=== PATIENT | female | born 1945 | race Caucasian/White ===

== ENCOUNTER → 2020-04-18 14:55 | Outpatient (ROUT) | payer MEDICARE, OTHER, SELFPAY ==
[2020-04-18 15:33] LABS: Hemoglobin 11.7 g/dL (12.0-16.0); Mean Corpuscular HGB Conc 31.7 % (30-36); Mean Corpuscular Hemoglobin 33.6 PG (26-34); Platelet Count 213 X10^3/uL (150-400); Red Cell Distribution Width 13.6 % (11.6-14.8); White Blood Cell Count 9.9 X10^3/uL (4.5-11.0)
[2020-04-18 16:05] LABS: Alanine Aminotransferase 26 IU/L (<35); Albumin 4.2 g/dL (3.5-5.0); Albumin Globulin Ratio 1.8 (1.0-2.8); Alkaline Phosphatase 69 U/L (38-126); Aspartate Aminotransferase 31 IU/L (14-36); BUN Creatinine Ratio 24.3 (6-22); Bilirubin Total 0.4 mg/dL (0.2-1.3); Blood Urea Nitrogen 26 mg/dL (7-17); Calcium 9.4 mg/dL (8.4-10.2); Carbon Dioxide 26 mmol/L (22-32); Chloride 111 mmol/L (98-107); Cholesterol 175 mg/dL (140-199); Globulin 2.4 g/dL (1.7-4.1); Glucose 81 mg/dL (80-110); HDL Cholesterol 81 mg/dL (40-60); HEMOLYSIS < 15 (0-50); LDL Cholesterol Calculated 79 mg/dL (<100); Potassium 4.4 mmol/L (3.4-5.1); Sodium 142 mmol/L (137-145); Total Protein 6.6 g/dL (6.3-8.2); Triglycerides 74 mg/dL (35-150)
[2020-04-18 17:42] LABS: Hemoglobin A1C% w Est Avg Glu 5.5 % (4.0-6.0)
[2020-04-20 14:40] LABS: Iron 106 ug/dL (37-170)
[2020-04-20 15:16] LABS: Ferritin 48 ng/mL (11-264)
[2020-04-20 15:46] LABS: Folate 8.1 ng/mL (2.76-20.0)
== END ==
PROVIDERS: Visit Provider Student in an Organized Health Care Education/Training Program
DX: E11.9 Type 2 diabetes mellitus without complications (principal); N18.30 Chronic kidney disease, stage 3 unspecified; I10 Essential (primary) hypertension
CPT/HCPCS: 80053; 80061; 82728; 82746; 83036; 83540; 85027

== ENCOUNTER → 2022-05-24 15:30 | Outpatient (CLI) | payer MEDICARE, OTHER, SELFPAY ==
[2022-05-24 23:51] LABS: Influenza A - CEPHEID Flu A NEGATIVE (NEGATIVE); Influenza B - CEPHEID Flu B NEGATIVE (NEGATIVE); Respiratory Syncytial Virus Negative (Negative)
[2022-05-24 23:59] LABS: COVID-19 CEPHEID 4-PLEX PCR Negative (Negative)
== END ==
PROVIDERS: Visit Provider Nurse Practitioner Family
DX: R05.1 Acute cough (principal); R06.02 Shortness of breath
CPT/HCPCS: 0241U

== ENCOUNTER → 2023-04-17 11:12 | Outpatient (CLI) | payer MEDICARE, OTHER, SELFPAY ==
--- NOTE | 2023-04-17 | DI.US.S_ITS ---
PROCEDURE: US CAROTID DOPPLER BI INDICATIONS: Bilateral carotid artery stenosis TECHNIQUE: Color and pulse Doppler interrogation was performed of both carotid systems, with image documentation and velocity measurements. COMPARISON: None. FINDINGS: Stenosis calculations are based on SRU (Society of Radiologists in Ultrasound) criteria. Right side: Brachial blood pressure: 163/71 mm Hg. Common carotid artery peak systolic velocity: 65.2 cm/sec. Internal carotid artery peak systolic velocity: 128.7 cm/sec. Internal carotid artery end diastolic velocity: 30.3 cm/sec. External carotid artery peak systolic velocity: 66.6 cm/sec. ICA/CCA peak systolic ratio: 2.0 . Laws scale imaging description: Atheromatous plaque is present at the carotid bulb. Percent internal carotid artery stenosis: 50-69% stenosis. Vertebral artery: Flow direction is antegrade. Left side: Brachial blood pressure: 150/86 mm Hg. Common carotid artery peak systolic velocity: 65.2 cm/sec. Internal carotid artery peak systolic velocity: 202.6 cm/sec. Internal carotid artery end diastolic velocity: 43.2 cm/sec. External carotid artery peak systolic velocity: 78.7 cm/sec. ICA/CCA peak systolic ratio: 3.1. Laws scale imaging description: Atheromatous plaquing calcification is present at the carotid bulb. Percent internal carotid artery stenosis: 50-69% stenosis. Vertebral artery: Flow direction is antegrade. IMPRESSION: 50-69% stenosis of the bilateral internal carotid arteries. Dictated by: Leslye Ramos M.D. on 04/17/2023 at 14:28 Approved by: Leslye Ramos M.D. on 04/17/2023 at 14:29
== END ==
PROVIDERS: Referring Provider Student in an Organized Health Care Education/Training Program; Visit Provider Student in an Organized Health Care Education/Training Program
DX: I65.23 Occlusion and stenosis of bilateral carotid arteries (principal)
CPT/HCPCS: 93880

== ENCOUNTER 2023-09-12 12:41 | Day surgery (SDC) | payer MEDICARE, OTHER, SELFPAY ==
[2023-09-12 13:13] VITALS: BP 158/66; PULSE 70; RESP 16; TEMP 37.1; O2SAT 94
[2023-09-12] MEDS: LACTATED RINGERS 1,000 ML 42 ML IV (13:15)
--- NOTE | 2023-09-12 13:48 | PM.PREOP ---
Pre-operative Note Interval Note History & Physical reviewed/Exam performed by Physician: Yes Changes to H&P: No
[2023-09-12 14:16] VITALS: BP 139/66; PULSE 70; RESP 19; TEMP 36.4; O2SAT 95
[2023-09-12 14:22] VITALS: BP 192/92; PULSE 82; RESP 22; O2SAT 95
--- NOTE | 2023-09-12 14:25 | PM.OP.COLON ---
Operative Date/Time/Diagnoses Date of procedure: 09/12/23 Time of procedure: 14:26 Pre-op diagnosis: Rectal pain Post-op diagnosis: other (Internal hemorrhoids) Procedure & Clinicians Study performed: Sigmoidoscopy Banding internal hemorrhoids x3 Indications: Rectal pain Surgeon: Slick Mann Procedure Notes Procedure in detail: The history and physical was performed/updated and the patient is ASA class is 2. The procedure was discussed in detail with the patient. Potential risks complications including infection, bleeding, missed diagnosis, perforation, need for surgery, and were explained. Their questions were answered and informed consent was obtained. Patient was brought to the procedure room and placed standard monitoring equipment. The patient's vital signs were monitored continuously throughout the entire procedure. Prior to starting time-out was performed. The patient was placed in the left lateral recumbent position. Procedural sedation was administered by anesthesia. Examination began with a thorough inspection of the perianal area there was no evidence of fissures, fistulae, external hemorrhoids or cutaneous malignancy. The colonoscopy scope was then placed into the anal canal and was advanced to the level of the sigmoid colon. The descending colon was tortuous and no further safe progress could be made. The scope was then slowly withdrawn. Retroflexion within the rectum demonstrated grade 3 internal hemorrhoids. Following completion of the sigmoidoscopy we proceeded with hemorrhoidal banding. The anoscope was placed. Prominent internal hemorrhoids with prolapse in the left lateral right posterior and anterior positions. Each pedicle was grasped with the suction the doubly ligated at their base. Tolerated the procedure well. Specimen(s): none sent Impression: Prolapsing internal hemorrhoids Post-procedure Plan for aftercare: Sitz bath twice daily Avoid straining/constipation Follow up: weeks (2) Disposition: same day surgery
[2023-09-12 14:26] VITALS: BP 157/62; PULSE 72; RESP 22; TEMP 36.3; O2SAT 95
[2023-09-12 14:32] VITALS: BP 166/57; PULSE 67; RESP 22; TEMP 36.3; O2SAT 95
== END 2023-09-12 14:55 | disposition home or self-care (01) ==
PROVIDERS: PCP Student in an Organized Health Care Education/Training Program; Referring Provider Surgery; Visit Provider Surgery
PROC: 0DJD8ZZ Inspection of Lower Intestinal Tract, Via Natural or Artificial Opening Endoscopic (ICD-10-PCS; CPT 45378; principal; 2023-09-12 13:30)
DX: K62.89 Other specified diseases of anus and rectum (principal); K64.2 Third degree hemorrhoids
CPT/HCPCS: 46221; 45330; J2704

== ENCOUNTER 2023-10-05 13:17 | Emergency (ER) | payer MEDICARE, OTHER, SELFPAY ==
[2023-10-05] VITALS (11 sets, daily range): BP systolic 143–189; BP diastolic 71–119; PULSE 53–64; RESP 18; TEMP 36.6; O2SAT 94–100; BMI 34.3
--- NOTE | 2023-10-05 13:33 | DI.CT.S_ITS ---
PROCEDURE: CT HEAD/BRAIN WO CON INDICATIONS: fall TECHNIQUE: Noncontrast 4.5 mm thick angled axial sections acquired from the foramen magnum to the vertex, with coronal and sagittal reformats. For radiation dose reduction, the following was used: automated exposure control, adjustment of mA and/or kV according to patient size. COMPARISON: None. FINDINGS: Image quality: Diagnostic. CSF spaces: Basal cisterns are patent. No extra-axial fluid collections. Ventricles are normal in size and shape. Brain: No midline shift. No intracranial masses or hemorrhage. Laws-white matter interface is normal. Skull and face: Calvarium and visualized facial bones are intact, without suspicious lesions. Soft tissue emphysema over the right forehead above the orbit. Sinuses: Visualized sinuses and mastoids are clear. IMPRESSION: No acute intracranial pathology. Dictated by: Manjinder Jackson M.D. on 10/05/2023 at 12:57 Approved by: Manjinder Jackson M.D. on 10/05/2023 at 12:59
--- NOTE | 2023-10-05 13:34 | DI.CT.S_ITS ---
PROCEDURE: CT CERVICAL SPINE WO CON INDICATIONS: fall TECHNIQUE: Noncontrast 3 mm thick sections acquired from the skull base to the T4 level. Sagittal and coronal reformats were then constructed. For radiation dose reduction, the following was used: automated exposure control, adjustment of mA and/or kV according to patient size. COMPARISON: [facility], CT, CT HEAD/BRAIN WO CON, 10/05/2023, 13:39. FINDINGS: Image quality: Excellent. Bones: No fractures or dislocations. Visualized superior ribs are intact. Soft tissues: Prevertebral soft tissues are normal in thickness. No paravertebral hematomas. No apical pneumothoraces. Reversal normal cervical lordosis centered at C5. Nonspecific right supraclavicular 1 centimeter lymph node. IMPRESSION: No displaced fracture or traumatic subluxation. Nonspecific right supraclavicular lymphadenopathy. Dictated by: Manjinder Jackson M.D. on 10/05/2023 at 12:50 Approved by: Manjinder Jackson M.D. on 10/05/2023 at 12:56
--- NOTE | 2023-10-05 14:08 | ED_ITS ---
HPI - Fall General Chief Complaint: Fall Stated Complaint: GLF, head lac Time Seen by Provider: 10/05/23 14:08 Source: patient, EMS, RN notes reviewed and old records reviewed Mode of arrival: EMS Limitations: no limitations History of Present Illness HPI Narrative: 78-year-old female with history of dyslipidemia, hypertension, osteoarthritis, does not take any anticoagulants presents with complaint of fall and head laceration. Patient states she was walking down her back steps. She states she was not picking up her feet quite as well as she probably should have caught her foot and fell forward hitting her head as well as her hands. She states she is little bit of pain where she has a laceration. She denies headache otherwise. Denies any neck or back pain. Denies any loss of consciousness. Denies any chest pain or shortness of breath. No abdominal back or flank pain. Denies any major injuries to her arms or legs. Denies any new numbness tingling or weakness no other GI symptoms with no nausea or vomiting or dizziness. Patient states she takes meloxicam daily she denies any anticoagulants. Former smoker, occasional alcohol, no recreational drug use. Primary care is Khalida Ramesh. Patient states she has been able to get up and move between [facility] without any issue. Related Data Home Medications Medication Instructions Recorded Confirmed meloxicam 7.5 mg tablet 7.5 mg PO DAILY 05/24/22 09/12/23 omeprazole 20 mg capsule,delayed 20 mg PO DAILY 05/24/22 09/12/23 release valacyclovir 500 mg tablet 500 mg PO DAILY 05/24/22 09/12/23 acetaminophen 650 100 ml PO .q8hr Pain 06/19/23 09/12/23 albuterol sulfate 90 mcg/actuation 2 puff inhalation Q6H PRN airway 06/19/23 09/12/23 aerosol inhaler escitalopram oxalate 20 mg tablet 20 mg PO DAILY 06/19/23 09/12/23 hyoscyamine sulfate 0.125 mg tablet 0.25 mg PO QID 06/19/23 09/12/23 ipratropium 20 mcg-albuterol 100 1 puff inhalation 6XD 06/19/23 09/12/23 mcg/actuation mist for inhalation (Combivent Respimat) lidocaine 5 % topical patch 1 patch topical DAILY 06/19/23 09/12/23 lisinopril 40 mg tablet 40 mg PO DAILY 06/19/23 09/12/23 nystatin 100,000 unit/gram topical 1 applic topical DAILY 06/19/23 09/12/23 cream nystatin 100,000 unit/gram topical 1 applic topical BID 06/19/23 09/12/23 powder simvastatin 5 mg tablet 5 mg PO DAILY 06/19/23 09/12/23 Previous Rx's Medication Instructions Recorded acetaminophen 325 mg capsule 650 mg (2 x 325 mg) PO QID PRN 09/12/23 (Tylenol) pain #60 caps polyethylene glycol 3350 17 17 g PO DAILY #119 grams 09/12/23 gram/dose oral powder (Miralax) Allergies Allergy/AdvReac Type Severity Reaction Status Date / Time gabapentin Allergy Verified 10/05/23 13:22 Sulfa (Sulfonamide Allergy Verified 10/05/23 13:22 Antibiotics) Review of Systems Review of Systems ROS Unobtainable: All systems reviewed & are unremarkable except as noted in HPI and below Patient History Medical History Carotid artery disease Non Hodgkin's lymphoma Asthma Diabetes Surgical History History of back surgery H/O tubal ligation History of carpal tunnel surgery History of knee replacement Family History Mother Stroke Father Colon cancer Social History marital status: details: ALSO LIVES WITH GRANDDAUGHTER AND SON-IN-LAW household members: spouse and family lives independently: Yes occupational status: previously employed Smoking Status: Former smoker alcohol intake: current substance use type: does not use Smoking Status: Former smoker alcohol intake frequency: holidays/special occasions only Substance Use Type: does not use Exam Narrative Exam Narrative: GEN: Patient appears in mild distress. HEAD: Patient has laceration over her right forehead, stellate , no raccoon/Torres sign. NECK: Nontender, painless range of motion, trachea midline Negative Nexus criteria, there is no midline tenderness, distracting injury, altered mental status, neuro deficit, recent EtOH. EYES: PERRLA, EOMI ENT: External inspection normal, trachea is midline, Nares are clear, no septal hematoma, no dental or oral injury, airway is normal and with normal occlusion, No bony tenderness RESP: Chest is nontender and has symmetric movement, no ecchymosis, breath sounds are normal no crackles, wheezes or rales CVS: Heart sounds are normal, no murmur noted, No JVD. ABG/GI: Nontender, soft, normal bowel sounds, no distention, no organomegaly, pelvic rock is negative NEURO: Oriented AOx3, neuro is grossly intact, sensation and motor is normal all 4 extremities moving, cranial nerves II through XII are intact, GCS is 15 PSYCH: Normal mood and affect SKIN: Patient has some small abrasions on hands, warm and dry, no crepitus and without decubitus BACK: No CVA tenderness, no vertebral tenderness, no step-off's, no crepitus EXT: Atraumatic, hips are nontender, no pedal edema, normal color and temperature, normal range of motion of extremities with normal tendon exam, 2+ pulses in all four extremities Initial Vital Signs Initial Vital Signs: Vital Signs Pulse Rate 64 10/05/23 13:20 Pulse Oximetry 97 10/05/23 13:20 Procedures Laceration Repair Laceration 1: Site: face (forehead) Side (If applicable): right Size (cm): 4.2 Description: stellate and irregular Depth: simple, single layer Local Anesthetic: lidocaine 2% Amount of anesthesia used (mL): 6 Pre-repair: wound explored, irrigated extensively, deep structures intact and wound margins revised Skin layer closed with: vicryl Skin layer suture size: 5-0 Number of sutures: 12 Technique: simple, interrupted Scores [place] CT Head Rule Age <16 years old: No Patient on blood thinners: No Seizure after injury: No Exclusion: Patient NOT Excluded, Proceed to next steps Age greater or equal to 65 years: Yes GCS Dennis coma scale eye opening: Spontaneous Huxford coma scale verbal response: Orientated Huxford coma scale motor response: Obey commands Dennis coma scale total score: 15 Nexus Score for C-Spine Focal Neurologic deficit present: No Midline spinal tenderness present: No Altered level of conciousness present: No Intoxication present: No Distracting Injury Present: No Nexus Criteria for C-spine: 0 Course Orders Ordered: ED Orders 10/05/23 13:33 CT head/brain wo con Stat 10/05/23 13:34 CT cervical spine wo con Stat Vital Signs Vital signs: Vital Signs - 8 hr 10/05/23 13:20 10/05/23 13:21 10/05/23 13:21 Temperature Pulse Rate 64 60 Respiratory Rate Blood Pressure 158/71 H Pulse Oximetry 97 99 Oxygen Delivery Method 10/05/23 13:22 10/05/23 13:30 10/05/23 13:31 Temperature 97.8 F Pulse Rate 56 L 57 L 57 L Respiratory Rate 18 Blood Pressure 158/71 H Pulse Oximetry 99 98 94 Oxygen Delivery Method Room Air Room Air 10/05/23 13:31 10/05/23 13:47 10/05/23 13:47 Temperature Pulse Rate 56 L Respiratory Rate Blood Pressure 143/119 H 189/76 H Pulse Oximetry 100 Oxygen Delivery Method 10/05/23 14:00 10/05/23 14:00 10/05/23 14:30 Temperature Pulse Rate 58 L Respiratory Rate Blood Pressure 178/77 H 181/77 H Pulse Oximetry 97 Oxygen Delivery Method 10/05/23 14:30 10/05/23 15:00 10/05/23 15:01 Temperature Pulse Rate 56 L 54 L Respiratory Rate Blood Pressure 174/71 H Pulse Oximetry 100 97 Oxygen Delivery Method Room Air 10/05/23 15:01 10/05/23 15:26 10/05/23 15:26 Temperature Pulse Rate 53 L 57 L Respiratory Rate Blood Pressure 163/95 H Pulse Oximetry 98 98 Oxygen Delivery Method Room Air MDM - Fall Imaging Data CT scan - head: Radiologist's Impression: [place] [address] CT Scan Report Signed Patient: Gilma Silva MR#: [id number] : 1945 Acct:[id number] Age/Sex: 78 / F Date of Service: 10/05/23 Loc: ED Accession Number: [id number] Procedure: CT head/brain wo con Ordering Provider: Snow Chan D.O. PROCEDURE: CT HEAD/BRAIN WO CON INDICATIONS: fall TECHNIQUE: Noncontrast 4.5 mm thick angled axial sections acquired from the foramen magnum to the vertex, with coronal and sagittal reformats. For radiation dose reduction, the following was used: automated exposure control, adjustment of mA and/or kV according to patient size. COMPARISON: None. FINDINGS: Image quality: Diagnostic. CSF spaces: Basal cisterns are patent. No extra-axial fluid collections. Ve ntricles are normal in size and shape. Brain: No midline shift. No intracranial masses or hemorrhage. Laws-white matter interface is normal. Skull and face: Calvarium and visualized facial bones are intact, without suspicious lesions. Soft tissue emphysema over the right forehead above the orbit. Sinuses: Visualized sinuses and mastoids are clear. IMPRESSION: No acute intracranial pathology. Dictated by: Manjinder Jackson M.D. on 10/05/2023 at 12:57 Approved by: Manjinder Jackson M.D. on 10/05/2023 at 12:59 ?? CT - cervical spine: Radiologist's Impression: [place] [address] CT Scan Report Signed Patient: Gilma Silva MR#: [id number] : 1945 Acct:[id number] Age/Sex: 78 / F Date of Service: 10/05/23 Loc: ED Accession Number: [id number] Procedure: CT cervical spine wo con Ordering Provider: Snow Chan D.O. PROCEDURE: CT CERVICAL SPINE WO CON INDICATIONS: fall TECHNIQUE: Noncontrast 3 mm thick sections acquired from the skull base to the T4 level. Sagittal and coronal reformats were then constructed. For radiation dose reduction, the following was used: automated exposure control, adjustment of mA and/or kV according to patient size. COMPARISON: [facility], CT, CT HEAD/BRAIN WO CON, 10/05/2023, 13:39. FINDINGS: Image quality: Excellent. Bones: No fractures or dislocations. Visualized superior ribs are intact. Soft tissues: Prevertebral soft tissues are normal in thickness. No paravertebral hematomas. No apical pneumothoraces. Reversal normal cervical lordosis centered at C5. Nonspecific right supraclavicular 1 centimeter lymph node. IMPRESSION: No displaced fracture or traumatic subluxation. Nonspecific right supraclavicular lymphadenopathy. Dictated by: Manjinder Jackson M.D. on 10/05/2023 at 12:50 Approved by: Manjinder Jackson M.D. on 10/05/2023 at 12:56 MDM Narrative Medical decision making narrative: 78-year-old female with no anticoagulants who had a down stairs head laceration. Patient is not anticoagulated [address] was obtained based on age C-spine was included as well. Head CT and CT C-spine show no acute fracture or bleed, does note some nonspecific right supraclavicular lymphadenopathy. Patient notes she has a history of lymphoma has been told by her oncologist she does not require at follow up discussed would probably be worthwhile talk with her physician as it has been several years. Patient had no loss of consciousness. Had large stellate laceration which was repaired. Patient does not have any additional symptoms. Notes her tetanus is up-to-date. Discharge Plan Departure Patient Disposition: Home Clinical Impression: Lymphadenopathy, supraclavicular Forehead laceration Qualifiers: Encounter type: initial encounter Qualified Code(s): S01.81XA - Laceration without foreign body of other part of head, initial encounter Fall Qualifiers: Encounter type: initial encounter Qualified Code(s): W19.XXXA - Unspecified fall, initial encounter Head injury Qualifiers: Encounter type: initial encounter Qualified Code(s): S09.90XA - Unspecified injury of head, initial encounter Instructions: Closed Head Injury Activity Restrictions/Additional Instructions: Your imaging does show a right supraclavicular 1 cm lymph node, this is nonspecific but should be followed up with your physician. Your sutures should dissolve over the next week, if still present at 7 days follow up to have them removed. Wound Care: Keep wound(s) clean and dry. Wash daily with soap and water only. Do not use over the counter products (alcohol or peroxide)on the wounds unless instructed by a physician. If wound condition worsens (increased/expanding redness, developing fluid blisters, or worsening pain), either contact your doctor for an urgent re- assessment , or return to the Emergency Department. Return if fever greater than 100.4 Fahrenheit, increased swelling, increasing pain or worsening symptoms such as increased discharge or spreading redness. Severe headaches, sudden vision changes, persistent nausea or vomiting, new neck or back pain, lightheadedness or passing out, new weakness numbness or difficulty with ambulation or other new or concerning changes. Prescriptions: No Action omeprazole 20 mg capsule,delayed release(DR/EC) 20 mg PO DAILY meloxicam 7.5 mg tablet 7.5 mg PO DAILY valacyclovir 500 mg tablet 500 mg PO DAILY escitalopram oxalate 20 mg tablet 20 mg PO DAILY lisinopril 40 mg tablet 40 mg PO DAILY lidocaine 5 % adhesive patch,medicated 1 patch topical DAILY Rx Instructions: leave on most painful area for up to 12 hrs Combivent Respimat 20-100 mcg/actuation mist 1 puff inhalation 6XD Rx Instructions: space evenly during waking hours albuterol sulfate 90 mcg/actuation HFA aerosol inhaler 2 puff inhalation Q6H PRN (Reason: airway) acetaminophen 650 100 ml PO .q8hr hyoscyamine sulfate 0.125 mg tablet 0.25 mg PO QID simvastatin 5 mg tablet 5 mg PO DAILY nystatin 100,000 unit/gram cream 1 applic topical DAILY nystatin 100,000 unit/gram powder 1 applic topical BID polyethylene glycol 3350 [Miralax] 17 gram/dose powder 17 g PO DAILY Qty: 119 0RF acetaminophen [Tylenol] 325 mg capsule 650 mg PO QID PRN (Reason: pain) Qty: 60 0RF Referrals: Khalida Ramesh PA-C [Primary Care Provider] - Stand Alone Forms: Patient Portal/API
== END 2023-10-05 15:38 | disposition home or self-care (01) ==
PROVIDERS: Emergency Provider Emergency Medicine; PCP Student in an Organized Health Care Education/Training Program
DX: S01.81XA Laceration without foreign body of other part of head, initial encounter (principal); S09.90XA Unspecified injury of head, initial encounter; R59.0 Localized enlarged lymph nodes; W18.30XA Fall on same level, unspecified, initial encounter; Z79.899 Other long term (current) drug therapy
CPT/HCPCS: 12013; 70450; 72125; 99281; 99284

== ENCOUNTER 2023-12-07 10:16 | Inpatient (IN) | payer MEDICARE, OTHER, SELFPAY ==
[2023-12-07] VITALS (47 sets, daily range): BP systolic 108–156; BP diastolic 41–86; PULSE 61–76; RESP 16–31; TEMP 36.2–36.6; O2SAT 92–98; BMI 33.5
--- NOTE | 2023-12-07 10:23 | ED.NEUROSD ---
HPI - Neuro Symptoms/Deficit General Chief Complaint: Neuro Symptoms/Deficit Stated Complaint: CODE STROKE Time Seen by Provider: 12/07/23 10:23 History of Present Illness HPI Narrative: Patient is a 78-year-old female history of dyslipidemia hypertension osteoarthritis not on anticoagulation presenting today as a code stroke. Last known well 10:00 p.m. last night. Daughter at bedside states she had to put her to bed which is abnormal. She was with her most of the day she has had some chills but no other symptoms really but she did need help getting to bed she did not notice any obvious deficits. This morning got her was there tried to wake her and had some difficulty waking or let her sleep for a bit longer than woke her again around 8:00 a.m. and noticed that she had some. EMS reports that she had right sided weakness. Mostly in arm but thought that maybe she was dragging her leg as well. No obvious speech abnormality or facial droop. Not on antiplatelet medication Related Data Home Medications Medication Instructions Recorded Confirmed meloxicam 7.5 mg tablet 7.5 mg PO DAILY 05/24/22 09/12/23 omeprazole 20 mg capsule,delayed 20 mg PO DAILY 05/24/22 09/12/23 release valacyclovir 500 mg tablet 500 mg PO DAILY 05/24/22 09/12/23 acetaminophen 650 100 ml PO .q8hr Pain 06/19/23 09/12/23 albuterol sulfate 90 mcg/actuation 2 puff inhalation Q6H PRN airway 06/19/23 09/12/23 aerosol inhaler escitalopram oxalate 20 mg tablet 20 mg PO DAILY 06/19/23 09/12/23 hyoscyamine sulfate 0.125 mg tablet 0.25 mg PO QID 06/19/23 09/12/23 ipratropium 20 mcg-albuterol 100 1 puff inhalation 6XD 06/19/23 09/12/23 mcg/actuation mist for inhalation (Combivent Respimat) lidocaine 5 % topical patch 1 patch topical DAILY 06/19/23 09/12/23 lisinopril 40 mg tablet 40 mg PO DAILY 06/19/23 09/12/23 nystatin 100,000 unit/gram topical 1 applic topical DAILY 06/19/23 09/12/23 cream nystatin 100,000 unit/gram topical 1 applic topical BID 06/19/23 09/12/23 powder simvastatin 5 mg tablet 5 mg PO DAILY 06/19/23 09/12/23 Previous Rx's Medication Instructions Recorded acetaminophen 325 mg capsule 650 mg (2 x 325 mg) PO QID PRN 09/12/23 (Tylenol) pain #60 caps polyethylene glycol 3350 17 17 g PO DAILY #119 grams 09/12/23 gram/dose oral powder (Miralax) Allergies Allergy/AdvReac Type Severity Reaction Status Date / Time gabapentin Allergy Verified 10/05/23 13:22 Sulfa (Sulfonamide Allergy Verified 10/05/23 13:22 Antibiotics) Patient History Medical History Carotid artery disease Non Hodgkin's lymphoma Asthma Diabetes Surgical History History of back surgery H/O tubal ligation History of carpal tunnel surgery History of knee replacement Family History Mother Stroke Father Colon cancer Social History marital status: details: ALSO LIVES WITH GRANDDAUGHTER AND SON-IN-LAW household members: spouse and family lives independently: Yes occupational status: previously employed Smoking Status: Former smoker alcohol intake: current substance use type: does not use Smoking Status: Former smoker alcohol intake frequency: holidays/special occasions only Substance Use Type: does not use Exam Initial Vital Signs Initial Vital Signs: Vital Signs Temperature 98 F 12/07/23 10:25 Pulse Rate 73 12/07/23 10:25 Respiratory Rate 22 12/07/23 10:25 Blood Pressure 112/53 L 12/07/23 10:25 Pulse Oximetry 94 12/07/23 10:25 Oxygen Delivery Method Room Air 12/07/23 10:25 GENERAL: Alert pleasant 78-year-old and in no acute distress. HEENT: Head atraumatic,EOMI, pupils reactive, mild left facial droop CARDIOVASCULAR: Regular rate and rhythm without murmurs, rubs or gallops. RESPIRATORY: Breath sounds equal bilaterally, no wheezes rales or rhonchi. ABDOMEN: Soft, nontender. Normoactive bowel sounds all 4 quadrants. No guarding or rebound. EXTREMITIES: Normal range of motion, no clubbing or edema. Neurovascularly intact NEUROLOGICAL: Alert and oriented x4.Normal gait and speech. Cranial nerves II through XII grossly intact. 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 Scores NIH Stroke Scale Level of Conciousness: Alert, keenly responsive Ask month/age: Answers both questions correctly. Open/close eyes, close hand: Performs both tasks correctly Best gaze horizontal: Normal Visual [place]: No visual loss Facial palsy: Minor paralysis, flattened nasolabial fold, asymmetry on smiling Left arm drift: No drift for full 10 sec Right arm drift: No drift for full 10 sec Left leg drift: No drift for full 5 sec Right leg drift: No drift for full 5 sec Limb ataxia: Present in one limb Sensory on face/arms/legs: Normal, no sensory loss Best language: No aphasia, normal Dysarthria: Normal Extinction or inattention: No abnormality Total NIH Stroke scale score: 2 Course Orders Ordered: ED Orders 12/07/23 10:27 CT Stroke Stat 12/07/23 10:28 CT angio head and neck Stat 12/07/23 10:38 CMP [Comprehensive Metabolic Panel] Stat Complete Blood Count AUTO DIFF Stat Ethanol (ETOH) Stat Lactate (Lactic Acid) Stat PTT Partial Thromboplastin Alli Stat Pathologist Review (for CBC) Stat Procalcitonin Stat Prothrombin Time INR Stat Troponin & CK Cardiac Panel Stat 12/07/23 10:44 EKG-12 Lead Stat 12/07/23 11:19 Respiratory Panel (Film Array) Stat 12/07/23 11:31 Urinalysis and Microscopic Stat Urine Culture Stat Urine Drug Screen, Rapid Stat 12/07/23 11:45 Blood Culture Stat 12/07/23 12:30 Trop I [Troponin I] Stat 12/07/23 13:42 Consult to CARD HAND - Nuclear Medicine Officer Stat 12/07/23 13:54 CT chest abd pel wo con Stat 12/07/23 14:41 BMP [Basic Metabolic Panel] Stat 12/07/23 15:09 MR head/brain wo con Stat Sodium Chloride (Normal Saline 0.9%) 1,000 mls @ 125 mls/hr IV CONT ERIC Last Admin: 12/07/23 11:57 Dose: 125 mls/hr Documented By: EVITA Discontinued Medications Acetaminophen (Acetaminophen 325 Mg Tablet) 975 mg PO NOW ONE Stop: 12/07/23 13:36 Last Admin: 12/07/23 14:28 Dose: 975 mg Documented By: EVITA Aspirin (Aspirin Ec 325 Mg Tablet) 325 mg PO NOW ONE Stop: 12/07/23 11:17 Last Admin: 12/07/23 11:55 Dose: 325 mg Documented By: EVITA Piperacillin Sod/Tazobactam (Sod 4.5 gm/ Sodium Chloride) 100 mls @ 200 mls/hr IV NOW ONE Stop: 12/07/23 11:17 Last Infusion: 12/07/23 12:35 Dose: Infused Documented By: Admin: 12/07/23 11:55 Dose: 200 mls/hr Documented By: EVITA Vital Signs Vital signs: Vital Signs - 8 hr 12/07/23 10:45 12/07/23 10:45 12/07/23 10:50 Pulse Rate 70 69 Respiratory Rate 25 H 25 H Blood Pressure 126/58 L Pulse Oximetry 95 96 Oxygen Delivery Method 12/07/23 11:00 12/07/23 11:00 12/07/23 11:10 Pulse Rate 67 67 Respiratory Rate 23 23 Blood Pressure 127/58 L Pulse Oximetry 96 95 Oxygen Delivery Method 12/07/23 11:16 12/07/23 11:16 12/07/23 11:20 Pulse Rate 66 66 Respiratory Rate 24 25 H Blood Pressure 127/60 Pulse Oximetry 96 95 Oxygen Delivery Method 12/07/23 11:29 12/07/23 11:30 12/07/23 11:30 Pulse Rate 66 70 Respiratory Rate 27 H Blood Pressure 121/57 L Pulse Oximetry 96 96 Oxygen Delivery Method Room Air 12/07/23 12:00 12/07/23 12:00 12/07/23 12:30 Pulse Rate 64 67 Respiratory Rate 24 25 H Blood Pressure 117/60 Pulse Oximetry 97 97 Oxygen Delivery Method 12/07/23 12:42 12/07/23 12:42 12/07/23 12:50 Pulse Rate 63 64 Respiratory Rate 26 H 27 H Blood Pressure 137/63 Pulse Oximetry 98 95 Oxygen Delivery Method Room Air 12/07/23 13:00 12/07/23 13:01 12/07/23 13:01 Pulse Rate 64 64 Respiratory Rate 26 H 26 H Blood Pressure 126/60 Pulse Oximetry 96 96 Oxygen Delivery Method 12/07/23 13:10 12/07/23 13:20 12/07/23 13:30 Pulse Rate 62 62 63 Respiratory Rate 24 24 31 H Blood Pressure Pulse Oximetry 96 96 96 Oxygen Delivery Method 12/07/23 13:31 12/07/23 13:31 12/07/23 14:00 Pulse Rate 63 Respiratory Rate 25 H Blood Pressure 121/58 L 132/60 Pulse Oximetry 96 Oxygen Delivery Method 12/07/23 14:00 12/07/23 14:30 12/07/23 15:00 Pulse Rate 64 62 65 Respiratory Rate 25 H 22 24 Blood Pressure Pulse Oximetry 96 96 96 Oxygen Delivery Method Room Air 12/07/23 15:30 12/07/23 15:35 12/07/23 15:35 Pulse Rate 66 65 Respiratory Rate 31 H 20 Blood Pressure 143/67 H Pulse Oximetry 97 96 Oxygen Delivery Method Room Air 12/07/23 16:00 12/07/23 16:01 12/07/23 16:01 Pulse Rate 63 62 Respiratory Rate 20 23 Blood Pressure 144/60 H Pulse Oximetry 97 97 Oxygen Delivery Method 12/07/23 16:30 12/07/23 16:30 12/07/23 16:40 Pulse Rate 61 65 Respiratory Rate 18 23 Blood Pressure 131/61 Pulse Oximetry 96 95 Oxygen Delivery Method Room Air 12/07/23 16:50 12/07/23 17:25 12/07/23 17:30 Pulse Rate 66 67 64 Respiratory Rate 21 Blood Pressure Pulse Oximetry 96 95 95 Oxygen Delivery Method 12/07/23 17:38 12/07/23 17:38 12/07/23 17:40 Pulse Rate 64 65 Respiratory Rate 21 23 Blood Pressure 113/86 Pulse Oximetry 96 95 Oxygen Delivery Method 12/07/23 17:50 12/07/23 18:00 12/07/23 18:00 Pulse Rate 64 64 Respiratory Rate 24 20 Blood Pressure 108/54 L Pulse Oximetry 96 97 Oxygen Delivery Method Room Air 12/07/23 18:10 Pulse Rate 69 Respiratory Rate 24 Blood Pressure Pulse Oximetry 97 Oxygen Delivery Method MDM - Neuro Symptoms/Deficit Lab Data 12/07/23 10:38 12/07/23 14:41 Labs: Lab Results 12/07/23 12/07/23 12/07/23 Range/Units 10:38 11:19 11:31 WBC 36.8 H* (4.5-11.0) X10^3/uL RBC 2.86 L (4.0-5.2) X10^6/uL Hgb 9.7 L (12.0-16.0) g/dL Hct 30.9 L (36-46) % MCV 108.1 H (80-100) fL MCH 34.0 (26-34) PG MCHC 31.5 (30-36) % RDW 14.7 (11.6-14.8) % Plt Count 226 (150-400) X10^3/uL Neut % (Auto) Not Reportable Lymph % (Auto) Not Reportable [place] % (Auto) Not Reportable Eos % (Auto) Not Reportable Baso % (Auto) Not Reportable Lymph # (Auto) Not Reportable [place] # (Auto) Not Reportable Baso # (Auto) Not Reportable Total Counted 100 Seg Neutrophils % 84.0 H (38-70) % Band Neutrophils % 5.0 (3-7) % Lymphocytes % (Manual) 10.0 L (25-45) % Monocytes % (Manual) 1.0 L (2-11) % Neutrophils # (Manual) 76834 H (8313-9497) /uL Smudge Cells 1+ H Toxic Granulation Present H RBC Morphology See below Macrocytosis 1+ H PT 13.1 H (9.4-12.5) SECONDS INR 1.1 (0.9-1.3) APTT 31 (25.1-36.5) SECONDS Sodium 138 (137-145) mmol/L Potassium 4.7 (3.4-5.1) mmol/L Chloride 117 H (98-107) mmol/L Carbon Dioxide 11 L (22-32) mmol/L BUN 33 H (7-17) mg/dL Creatinine 1.73 H (0.52-1.04) mg/dL Estimated GFR 30 L (>60) mL/min BUN/Creatinine Ratio 19.1 (6-22) Glucose 208 H (80-110) mg/dL Lactate 1.8 (0.7-2.1) mmol/L Calcium 7.7 L (8.4-10.2) mg/dL Total Bilirubin 0.3 (0.2-1.3) mg/dL AST 35 (14-36) IU/L ALT 24 (<35) IU/L Alkaline Phosphatase 74 (38-126) U/L Total Creatine Kinase 86 (30-135) U/L Troponin I 0.863 H* (0.01-0.034) ng/mL Total Protein 5.7 L (6.3-8.2) g/dL Albumin 3.3 L (3.5-5.0) g/dL Globulin 2.4 (1.7-4.1) g/dL Albumin/Globulin Ratio 1.4 (1.0-2.8) Procalcitonin 91.9 H (<0.5) ng/mL Urine Color Yellow Urine Appearance Cloudy Urine pH 5.0 (4.5-8.0) Ur Specific [place] 1.015 (1.000-1.035) Urine Protein 2+ H (Negative) Urine Glucose (UA) Negative (Negative) g/dL Urine Ketones Trace H (NEGATIVE) Urine Occult Blood 1+ H (Negative) Urine Nitrate Positive H (Negative) Urine Bilirubin Negative (NEGATIVE) Urine Urobilinogen 0.2 (0.2) E.U./dL Ur Leukocyte Esterase Trace H (NEGATIVE) Urine RBC 0-1/hpf (0-5/HPF) Urine WBC 5-10/hpf H (0-5/HPF) Ur Squamous Epith Cells 0-1 /hpf (0-5/HPF) Urine Bacteria Many (>30) H (None) Ur Culture Indicated? Specimen cultured Vol Urine Centrifuged 10ml (spun) U Opiates 300ng/mL cut Negative (Negative) Ur Oxycodone Screen Negative (Negative) Urine Methadone Screen Negative (Negative) Ur Barbiturates Screen Negative (Negative) U Tricyclic Antidepress Negative (Negative) Ur Phencyclidine Scrn Negative (Negative) Ur Amphetamines Screen Negative (Negative) U Methamphetamines Scrn Negative (Negative) Ur MDMA Scrn (Ecstasy) Negative (Negative) U Benzodiazepines Scrn Negative (Negative) Urine Cocaine Screen Negative (Negative) U Marijuana (THC) Screen Negative (Negative) Urine Specific [place] (Normal) Ethyl Alcohol < 10 ( - 10) mg/dL Ur Creatinine (Normal) Chlamy pneumoniae PCR Not detected (Not Detect) Adenovirus (PCR) Not detected (Not Detect) B.parapertussis DNA PCR Not detected (Not Detecte) Coronavirus OC43 (PCR) Not detected (Not Detect) Coronavirus HKU1 (PCR) Not detected (Not Detect) Coronavirus 229E (PCR) Not detected (Not Detect) SARS-CoV-2 (PCR) Detected H (Not Detecte) Coronavirus NL63 (PCR) Not detected (Not Detect) Human Metapneumovir PCR Not detected (Not Detect) Influenza Type A (PCR) Not detected (Not Detect) Influenza Type B (PCR) Not detected (Not Detect) M. pneumoniae (PCR) Not detected (Not Detect) Parainfluenza 1 (PCR) Not detected (Not Detect) Parainfluenza 2 (PCR) Not detected (Not Detect) Parainfluenza 3 (PCR) Not detected (Not Detect) Parainfluenza 4 (PCR) Not detected (Not Detect) RSV (PCR) Not detected (Not Detect) Entero/Rhino (PCR) Not detected (Not Detect) 12/07/23 12/07/23 12/07/23 Range/Units 11:31 12:30 14:41 WBC (4.5-11.0) X10^3/uL RBC (4.0-5.2) X10^6/uL Hgb (12.0-16.0) g/dL Hct (36-46) % MCV (80-100) fL MCH (26-34) PG MCHC (30-36) % RDW (11.6-14.8) % Plt Count (150-400) X10^3/uL Neut % (Auto) Lymph % (Auto) [place] % (Auto) Eos % (Auto) Baso % (Auto) Lymph # (Auto) [place] # (Auto) Baso # (Auto) Total Counted Seg Neutrophils % (38-70) % Band Neutrophils % (3-7) % Lymphocytes % (Manual) (25-45) % Monocytes % (Manual) (2-11) % Neutrophils # (Manual) (9517-7274) /uL Smudge Cells Toxic Granulation RBC Morphology Macrocytosis PT (9.4-12.5) SECONDS INR (0.9-1.3) APTT (25.1-36.5) SECONDS Sodium 138 (137-145) mmol/L Potassium 4.7 (3.4-5.1) mmol/L Chloride 118 H (98-107) mmol/L Carbon Dioxide 12 L (22-32) mmol/L BUN 33 H (7-17) mg/dL Creatinine 1.69 H (0.52-1.04) mg/dL Estimated GFR 31 L (>60) mL/min BUN/Creatinine Ratio 19.5 (6-22) Glucose 159 H (80-110) mg/dL Lactate (0.7-2.1) mmol/L Calcium 7.4 L (8.4-10.2) mg/dL Total Bilirubin (0.2-1.3) mg/dL AST (14-36) IU/L ALT (<35) IU/L Alkaline Phosphatase (38-126) U/L Total Creatine Kinase (30-135) U/L Troponin I 0.791 H* (0.01-0.034) ng/mL Total Protein (6.3-8.2) g/dL Albumin (3.5-5.0) g/dL Globulin (1.7-4.1) g/dL Albumin/Globulin Ratio (1.0-2.8) Procalcitonin (<0.5) ng/mL Urine Color Urine Appearance Urine pH Normal (4.5-8.0) Ur Specific [place] (1.000-1.035) Urine Protein (Negative) Urine Glucose (UA) (Negative) g/dL Urine Ketones (NEGATIVE) Urine Occult Blood (Negative) Urine Nitrate (Negative) Urine Bilirubin (NEGATIVE) Urine Urobilinogen (0.2) E.U./dL Ur Leukocyte Esterase (NEGATIVE) Urine RBC (0-5/HPF) Urine WBC (0-5/HPF) Ur Squamous Epith Cells (0-5/HPF) Urine Bacteria (None) Ur Culture Indicated? Vol Urine Centrifuged U Opiates 300ng/mL cut (Negative) Ur Oxycodone Screen (Negative) Urine Methadone Screen (Negative) Ur Barbiturates Screen (Negative) U Tricyclic Antidepress (Negative) Ur Phencyclidine Scrn (Negative) Ur Amphetamines Screen (Negative) U Methamphetamines Scrn (Negative) Ur MDMA Scrn (Ecstasy) (Negative) U Benzodiazepines Scrn (Negative) Urine Cocaine Screen (Negative) U Marijuana (THC) Screen (Negative) Urine Specific [place] Normal (Normal) Ethyl Alcohol ( - 10) mg/dL Ur Creatinine Normal (Normal) Chlamy pneumoniae PCR (Not Detect) Adenovirus (PCR) (Not Detect) B.parapertussis DNA PCR (Not Detecte) Coronavirus OC43 (PCR) (Not Detect) Coronavirus HKU1 (PCR) (Not Detect) Coronavirus 229E (PCR) (Not Detect) SARS-CoV-2 (PCR) (Not Detecte) Coronavirus NL63 (PCR) (Not Detect) Human Metapneumovir PCR (Not Detect) Influenza Type A (PCR) (Not Detect) Influenza Type B (PCR) (Not Detect) M. pneumoniae (PCR) (Not Detect) Parainfluenza 1 (PCR) (Not Detect) Parainfluenza 2 (PCR) (Not Detect) Parainfluenza 3 (PCR) (Not Detect) Parainfluenza 4 (PCR) (Not Detect) RSV (PCR) (Not Detect) Entero/Rhino (PCR) (Not Detect) Point of Care Testing Glucose POC [address] scan - head: Radiologist's Impression: PROCEDURE: CT STROKE INDICATIONS: right sided defecits TECHNIQUE: Noncontrast 4.5 mm thick angled axial sections acquired from the foramen magnum to the vertex, with coronal reformats. For radiation dose reduction, the following was used: automated exposure control, adjustment of mA and/or kV according to patient size. COMPARISON: [facility], CT, CT HEAD/BRAIN WO CON, 10/05/2023, 13:39. FINDINGS: Image quality: Diagnostic. CSF spaces: Basal cisterns are patent. No extra-axial fluid collections. The ventricles are symmetric in size and shape. Brain: No intracranial bleeds or masses. There is cerebral volume loss for age, with resultant ventricular and sulcal prominence. There are periventricular and deep white matter chronic small vessel ischemic changes. There is intracranial internal carotid artery atherosclerosis. Skull and face: Calvarium and visualized facial bones appear intact, without suspicious lesions. Sinuses: Visualized sinuses and mastoids are clear. IMPRESSION: 1. No CT evidence of acute intracranial pathology. No significant changes from previous study. 2. Findings were reported to Dr. Chan in the ER at 10:35 a.m. On 12/07/2023. This study fulfills neurological imaging criteria for inclusion or exclusion of acute stroke therapies based on available published neurological guidelines. Dictated by: Pete Ramos M.D. on 12/07/2023 at 10:33 CTA - brain/neck: Radiologist's Impression: PROCEDURE: CT ANGIO HEAD AND NECK INDICATIONS: right sided defecits. TECHNIQUE: After the administration of intravenous contrast, 1 mm thick sections acquired from the aortic arch through the [place]. 3-dimensional [id number] (MIP) and/or volume rendering reformats were acquired of the central intracranial vasculature and neck separately. For radiation dose reduction, the following was used: automated exposure control, adjustment of mA and/or kV according to patient size. COMPARISON: [facility], CT, CT CERVICAL SPINE WO CON, 10/05/2023, 13:40. [facility], CT, CT HEAD/BRAIN WO CON, 10/05/2023, 13:39. FINDINGS: Image quality: Diagnostic. BRAIN: CSF spaces: Ventricles are normal in size and shape. Basal cisterns are patent. No extra-axial fluid collections. Brain: No significant abnormality of the brain can be seen. Skull and face: Calvarium and facial bones appear intact, without suspicious lesions. Orbits appear normal. Sinuses: Sinuses and mastoids are clear. HEAD CT ANGIOGRAPHY: Anterior circulation: Intracranial internal carotid arteries are normal in size and flow. The flow within the paired anterior cerebral arteries is normal and symmetric. The flow within the middle cerebral arteries is normal and symmetric. The anterior communicating artery is seen. No aneurysms are seen. Posterior circulation: Visualized portions of the vertebral arteries demonstrate normal caliber, and join to form a normal appearing basilar artery. Flow within the posterior cerebral arteries is normal and symmetric. No aneurysms are seen. NECK CT ANGIOGRAPHY: Carotid system: The great vessels demonstrate a conventional anatomy as they arise from the aortic arch. The origins of the common carotid arteries appear patent. The common carotid arteries demonstrate normal caliber and courses. Atherosclerotic calcifications are noted involving bilateral carotid bifurcation with up to 60% stenosis in right proximal internal carotid artery and 67% stenosis in proximal left internal carotid artery. The internal carotid arteries demonstrate normal calibers and courses. Posterior circulation: The origins of the vertebral arteries both appear widely patent. The more superior extracranial portions of both vertebral arteries also demonstrate normal courses and calibers. They join to form a normal appearing basilar artery. Soft tissues: Visualized neck soft tissues demonstrate no suspicious abnormalities. Bones: No suspicious bony lesions. Moderate degenerative disc disease throughout cervical spine is seen. IMPRESSION: 1. No hemodynamically significant stenosis or aneurysm is seen in the intracranial circulation. 2. Moderate atherosclerotic calcifications involving bilateral carotid bifurcations and proximal internal carotid arteries with up to 60% stenosis involving proximal right internal carotid artery and up to 67% stenosis in proximal left internal carotid artery. Any quantitative measurements of stenosis were performed using NASCET criteria. Dictated by: Pete Ramos M.D. on 12/07/2023 at 10:37 MR brain: Radiologist's Impression: PROCEDURE: MR HEAD/BRAIN WO CON INDICATIONS: possible stroke TECHNIQUE: Non-contrast axial T1 spin echo, axial T2 fast spin echo, sagittal and axial FLAIR, coronal T2 fast spin echo, axial gradient echo, axial diffusion and ADC through the brain. COMPARISON: [facility], CT, CT ANGIO HEAD AND NECK, 12/07/2023, 10:19. FINDINGS: Image quality: Excellent. CSF spaces: Ventricles appear symmetric in size and shape. Basal cisterns are patent. No extra-axial fluid collections. Brain: Small full side of restricted diffusion involving left posterior frontal parietal subcortical white matter consistent with acute infarctions. No intracranial bleeds or mass effects. There is cerebral volume loss for age. There are periventricular and deep white matter chronic small vessel ischemic changes. Brainstem appears normal. No chronic ischemic insults. Normal intravascular flow voids are present. Skull and face: Calvarial bone marrow is normal in signal. Orbits are normal. Sinuses: Sinuses and mastoids are clear. IMPRESSION: 1. Finding is suggestive of small acute infarctions involving left posterior frontal parietal subcortical white matter. 2. No acute intracranial bleed, midline shift or mass effect. 3. Age related volume loss and extensive white matter chronic small vessel ischemic changes. Dictated by: Pete Ramos M.D. on 12/07/2023 at 18:04 CT chest/ab/pelvis: Radiologist's Impression: PROCEDURE: CT CHEST ABD PEL WO CON INDICATIONS: lymphnodes, uti, covid TECHNIQUE: After the administration of oral contrast, 5 mm thick sections acquired from the lung apices to the symphysis pubis. 5 mm thick coronal and sagittal reformats acquired, with additional 7 mm coronal MIP reformats through the lungs. For radiation dose reduction, the following was used: automated exposure control, adjustment of mA and/or kV according to patient size. COMPARISON: None. FINDINGS: Image quality: Diagnostic. CHEST: Lower Neck: No enlarged lymph nodes. Thyroid: No thyroid nodules which require sonographic follow up, per consensus guidelines. Axillae: No enlarged lymph nodes. Chest Wall: Unremarkable. Bones: Unremarkable. Lungs and Pleura: No pneumothorax or pleural effusions. Hazy ground-glass opacities are seen scattered in bilateral lung [place] most notably involving posterior medial aspect of right lower lobe. Mild bronchiectasis in bilateral lung [place] are also seen. Heart: Heart size is mildly enlarged. No pericardial effusion. Thoracic Vessels: The aorta and pulmonary arteries demonstrate normal size. Moderate atherosclerotic calcifications are noted in coronary vessels. Mediastinum and Kay: No enlarged lymph nodes. Subcentimeter lymph nodes are seen in mediastinum measures up to 7 mm in size. Esophagus: No wall thickening. Small hiatal hernia. ABDOMEN: Liver: No solid mass. Gallbladder: Gallbladder is surgically absent. Biliary ducts: No biliary dilation. Pancreas: No ductal dilation. Spleen: Size is within normal limits. Adrenal Glands: No adrenal nodules. Left adrenal thickening is seen. Kidneys and Ureters: No hydronephrosis. No solid mass. No complex renal cystic lesion which requires follow up. Excreted IV contrast from earlier CT angiogram of head and neck study is seen within bilateral ureters and urinary bladder. Stomach and Bowel: There is prior gastric bypass surgery with postsurgical changes in epigastric region. Postsurgical changes also noted in left upper quadrant abdomen with surgical anastomosis intact. There is no evidence of bowel obstruction. No abnormal bowel wall thickening. No evidence of acute appendicitis or diverticulitis. No abscess collection. Peritoneum: No abnormal intraperitoneal fluid. No free air. Ventral Wall: Tiny umbilical hernia is seen containing fat only Abdominal Nodes: No retroperitoneal or mesenteric adenopathy by size criteria. Vessels: Aorta and inferior vena cava are normal in size. PELVIS: Pelvic Organs: Unremarkable. Bladder: No gross abnormality. Pelvic Nodes: No enlarged lymph nodes. Miscellaneous: No inguinal hernias are seen. Bones: No aggressive osseous abnormality. There is prior right total hip arthroplasty. Extensive posterior fusion of lumbar spine is also noted. No acute vertebral body compression fracture. IMPRESSION: 1. Ill-defined hazy ground-glass opacities are seen scattered in bilateral lung alamo with associated bronchial wall thickening concerning for pneumonitis versus infiltrate secondary to atypical viral pneumonia. No pleural effusion or pneumothorax. 2. No abnormally enlarged lymph nodes are seen in chest, abdomen or pelvis. 3. No acute inflammatory process is seen in abdomen or pelvis. No free fluid or free air. 4. Extensive postsurgical changes in lumbar spine and right hip with beam hardening artifacts. Dictated by: Pete Ramos M.D. 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 Pertinent findings: WBC 36.8, hemoglobin 9.7, hematocrit 30.9, platelets 226, sodium 138, potassium 4.7, chloride 117, carbon dioxide 11, BUN 33, creatinine 1.73, baseline creatinine 1.0 in 2019, glucose 208, calcium 7.7, lactate 1.8, procalcitonin is 91.9, troponin 0.863 with repeat 0.791 Respiratory panel positive for COVID-19 Urinalysis positive for nitrates leukocytes and bacteria consistent with UTI Independently reviewed EKG as above no ischemia Imaging studies independently reviewed: Noncontrast head CT no acute process, CT head and neck angio no large vessel occlusion MRI is positive for small left-sided acute infarcts CT chest abdomen pelvis without contrast does show ill-defined hazy ground-glass opacities scattered in bilateral lung alamo with associated bronchial wall thickening concerning for pneumonitis which could be consistent with active COVID infection Consultations: Dr. Garcia, request CT abdomen pelvis with significantly elevated leukocytosis and procalcitonin and UTI wants to rule out any sort of obstructive uropathy, also requests MRI prior to admission Treatments: Aspirin, normal saline Zosyn Re-evaluations: Data Migration Consultant strength is actually improving during her length of stay in the emergency department. 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 Last known well is last evening not a candidate for TNK. She has no large vessel occlusion. She does have some obvious right computer programming professor strength weakness with positive MRI consistent with acute CVA. She also has an positive active COVID infection without hypoxia. This may or may not be contributing to her current CVA. She does have significant leukocytosis of 36 with an elevated procalcitonin of 91. She has a normal lactate and normal blood pressure, possible sepsis she is given Zosyn. She has positive urinalysis for UTI. There is also concern for lymphoma she has a history of lymphoma. She recently had a CT cervical spine which show no right supraclavicular node. No other lymphadenopathy noted on noncontrasted CT. She actually has an appointment with Oncology this week. Patient does have elevated troponins without EKG changes and no active chest pain. I suspect that this is from demand ischemia rather than active acute coronary syndrome. No anticoagulation is indicated with active stroke. She is given aspirin. Critical Care Time Critical Care Time Critical Care Time: Yes Total Critical Care Time: 62 Attestation: The high probability of a clinically significant, sudden or life threatening deterioration of the neurovascular system(s) required my full and direct attention, intervention and personal management. The aggregate critical care time was 62 minutes. This time is in addition to time spent performing reported procedures but includes the following: [x] Data Review and interpretation [x] Patient assessment and monitoring of vital signs [x] Documentation [x] Medication orders and management Discharge Plan Departure Patient Disposition: Admitted As Inpatient Clinical Impression: Cerebrovascular accident, Acute non-ST elevation myocardial infarction (NSTEMI), COVID-19, CVA (cerebral vascular accident), Acute UTI Admit Date/Time: 12/07/23 18:17 Admit Provider: Garry Garcia
--- NOTE | 2023-12-07 10:27 | DI.CT.S_ITS ---
PROCEDURE: CT STROKE INDICATIONS: right sided defecits TECHNIQUE: Noncontrast 4.5 mm thick angled axial sections acquired from the foramen magnum to the vertex, with coronal reformats. For radiation dose reduction, the following was used: automated exposure control, adjustment of mA and/or kV according to patient size. COMPARISON: [facility], CT, CT HEAD/BRAIN WO CON, 10/05/2023, 13:39. FINDINGS: Image quality: Diagnostic. CSF spaces: Basal cisterns are patent. No extra-axial fluid collections. The ventricles are symmetric in size and shape. Brain: No intracranial bleeds or masses. There is cerebral volume loss for age, with resultant ventricular and sulcal prominence. There are periventricular and deep white matter chronic small vessel ischemic changes. There is intracranial internal carotid artery atherosclerosis. Skull and face: Calvarium and visualized facial bones appear intact, without suspicious lesions. Sinuses: Visualized sinuses and mastoids are clear. IMPRESSION: 1. No CT evidence of acute intracranial pathology. No significant changes from previous study. 2. Findings were reported to Dr. Chan in the ER at 10:35 a.m. On 12/07/2023. This study fulfills neurological imaging criteria for inclusion or exclusion of acute stroke therapies based on available published neurological guidelines. Dictated by: Pete Ramos M.D. on 12/07/2023 at 10:33 Approved by: Pete Ramos M.D. on 12/07/2023 at 10:35
--- NOTE | 2023-12-07 10:28 | DI.CT.S_ITS ---
PROCEDURE: CT ANGIO HEAD AND NECK INDICATIONS: right sided defecits. TECHNIQUE: After the administration of intravenous contrast, 1 mm thick sections acquired from the aortic arch through the [place]. 3-dimensional ugwfqzm-jdfvjulfw-nmumakufli (MIP) and/or volume rendering reformats were acquired of the central intracranial vasculature and neck separately. For radiation dose reduction, the following was used: automated exposure control, adjustment of mA and/or kV according to patient size. COMPARISON: [facility], CT, CT CERVICAL SPINE WO [facility], 10/05/2023, 13:40. [facility], CT, CT HEAD/BRAIN WO CON, 10/05/2023, 13:39. FINDINGS: Image quality: Diagnostic. BRAIN: CSF spaces: Ventricles are normal in size and shape. Basal cisterns are patent. No extra-axial fluid collections. Brain: No significant abnormality of the brain can be seen. Skull and face: Calvarium and facial bones appear intact, without suspicious lesions. Orbits appear normal. Sinuses: Sinuses and mastoids are clear. HEAD CT ANGIOGRAPHY: Anterior circulation: Intracranial internal carotid arteries are normal in size and flow. The flow within the paired anterior cerebral arteries is normal and symmetric. The flow within the middle cerebral arteries is normal and symmetric. The anterior communicating artery is seen. No aneurysms are seen. Posterior circulation: Visualized portions of the vertebral arteries demonstrate normal caliber, and join to form a normal appearing basilar artery. Flow within the posterior cerebral arteries is normal and symmetric. No aneurysms are seen. NECK CT ANGIOGRAPHY: Carotid system: The great vessels demonstrate a conventional anatomy as they arise from the aortic arch. The origins of the common carotid arteries appear patent. The common carotid arteries demonstrate normal caliber and courses. Atherosclerotic calcifications are noted involving bilateral carotid bifurcation with up to 60% stenosis in right proximal internal carotid artery and 67% stenosis in proximal left internal carotid artery. The internal carotid arteries demonstrate normal calibers and courses. Posterior circulation: The origins of the vertebral arteries both appear widely patent. The more superior extracranial portions of both vertebral arteries also demonstrate normal courses and calibers. They join to form a normal appearing basilar artery. Soft tissues: Visualized neck soft tissues demonstrate no suspicious abnormalities. Bones: No suspicious bony lesions. Moderate degenerative disc disease throughout cervical spine is seen. IMPRESSION: 1. No hemodynamically significant stenosis or aneurysm is seen in the intracranial circulation. 2. Moderate atherosclerotic calcifications involving bilateral carotid bifurcations and proximal internal carotid arteries with up to 60% stenosis involving proximal right internal carotid artery and up to 67% stenosis in proximal left internal carotid artery. Any quantitative measurements of stenosis were performed using NASCET criteria. Dictated by: Pete Ramos M.D. on 12/07/2023 at 10:37 Approved by: Pete Ramos M.D. on 12/07/2023 at 10:45
--- NOTE | 2023-12-07 10:40 | EKG_ITS ---
[facility] [place] [id number] [address] [place] [address] Test Date: 2023-12-07 Pat Name: Gilma Silva Department: Room: Gender: Female Scrub Nurse: LAISHA : [id number] Requested By: Order Number: [id number] Reading MD: Macario Palacios Measurements Intervals [place] Rate: 73 P: 117 MS: 140 QRS: -4 QRSD: 70 T: 47 QT: 464 QTc: 511 Interpretive Statements Normal sinus rhythm Nonspecific ST abnormality Prolonged QT Electronically Signed On 12-10-2023 9:14:09 PDT by Macario Palacios
[2023-12-07 10:54] LABS: INR 1.1 (0.9-1.3); Prothrombin Time 13.1 SECONDS (9.4-12.5)
[2023-12-07 10:57] LABS: PTT Partial Thromboplastin Tim 31 SECONDS (25.1-36.5)
[2023-12-07 10:59] LABS: Creatine Kinase 86 U/L (30-135)
[2023-12-07 11:04] LABS: Hematocrit 30.9 % (36-46); Hemoglobin 9.7 g/dL (12.0-16.0); Mean Corpuscular HGB Conc 31.5 % (30-36); Mean Corpuscular Volume 108.1 fL (80-100); Platelet Count 226 X10^3/uL (150-400); Red Blood Cell Count 2.86 X10^6/uL (4.0-5.2); Red Cell Distribution Width 14.7 % (11.6-14.8)
[2023-12-07 11:07] LABS: Ethanol (ETOH) < 10 mg/dL
[2023-12-07 11:09] LABS: Add Manual Diff / Slide Review YES; White Blood Cell Count 36.8 X10^3/uL (4.5-11.0)
[2023-12-07 11:16] LABS: Troponin I 0.863 ng/mL (0.01-0.034)
[2023-12-07 11:21] LABS: Neutrophils Absolute Manual 32752 /uL (3000-5900); Total Cells Counted 100
[2023-12-07 11:22] LABS: Macrocytosis 1+; Smudge Cells 1+; Toxic Granulation Present
[2023-12-07 11:42] LABS: Ur Creatinine Normal (Normal); Ur Specific Gravity Normal (Normal); Urine Amphetamines Negative (Negative); Urine Barbiturates Negative (Negative); Urine Benzodiazepines Negative (Negative); Urine Cocaine Negative (Negative); Urine MDMA Negative (Negative); Urine Methadone Negative (Negative); Urine Methamphetamines Negative (Negative); Urine Opiates Negative (Negative); Urine Oxycodone Negative (Negative); Urine Phencyclidine Negative (Negative); Urine THC Negative (Negative); Urine Tricyclic Antidepressant Negative (Negative); Urine pH Normal (Normal)
[2023-12-07 11:44] LABS: Appearance Urine UA CLOUDY; Bilirubin Urine UA NEGATIVE (NEGATIVE); Color Urine UA YELLOW; Glucose Urine UA NEGATIVE (Negative); Ketones Urine UA TRACE (NEGATIVE); Leukocyte Esterase Urine UA TRACE (NEGATIVE); Nitrite Urine UA POSITIVE (Negative); Occult Blood Urine UA 1+ (Negative); Protein Urine UA 2+ (Negative); Specific Gravity Urine UA 1.015 (1.000-1.035); Urobilinogen Urine UA 0.2 E.U./dL (0.2)
[2023-12-07 11:44] LABS: Lactate (Lactic Acid) 1.8 mmol/L (0.7-2.1)
[2023-12-07 11:54] LABS: Bacteria Urine Many (>30); Culture Indicated Urine Specimen Cultured; RBC Urine 0-1/HPF (0-5/HPF); Squamous Epithelial Cell Urine 0-1 /HPF (0-5/HPF); Urine Volume 10mL (spun); WBC Urine 5-10/HPF (0-5/HPF)
[2023-12-07] MEDS: ASPIRIN EC 325 MG TABLET PO (11:55)
[2023-12-07] MEDS: PIPERACILLIN/TAZO 4.5 GM in SODIUM CHLORIDE 0.9% 100 ML IV (11:55)
[2023-12-07] MEDS: SODIUM CHLORIDE 0.9% 1,000 ML 125 ML IV (11:57)
[2023-12-07 11:58] LABS: Alanine Aminotransferase 24 IU/L (<35); Albumin 3.3 g/dL (3.5-5.0); Albumin Globulin Ratio 1.4 (1.0-2.8); Alkaline Phosphatase 74 U/L (38-126); Aspartate Aminotransferase 35 IU/L (14-36); BUN Creatinine Ratio 19.1 (6-22); Bilirubin Total 0.3 mg/dL (0.2-1.3); Blood Urea Nitrogen 33 mg/dL (7-17); Calcium 7.7 mg/dL (8.4-10.2); Carbon Dioxide 11 mmol/L (22-32); Chloride 117 mmol/L (98-107); Estimated Glomerular Filt Rate 30 mL/min (>60); Globulin 2.4 g/dL (1.7-4.1); Glucose 208 mg/dL (80-110); HEMOLYSIS < 15 (0-50); Potassium 4.7 mmol/L (3.4-5.1); Sodium 138 mmol/L (137-145); Total Protein 5.7 g/dL (6.3-8.2)
[2023-12-07 12:02] LABS: Procalcitonin 91.9 ng/mL (<0.5)
[2023-12-07 12:16] LABS: Adenovirus Not Detected (Not Detect); B. parapertussis Not Detected (Not Detecte); Bordetella pertussis Not Detected (Not Detect); Chlamydophila pneumoniae Not Detected (Not Detect); Coronavirus 229E Not Detected (Not Detect); Coronavirus HKU1 Not Detected (Not Detect); Coronavirus NL 63 Not Detected (Not Detect); Coronavirus OC43 Not Detected (Not Detect); Human Metapneumovirus Not Detected (Not Detect); Human Rhinovirus/Enterovirus Not Detected (Not Detect); Influenza A Not Detected (Not Detect); Influenza B Not Detected (Not Detect); Mycoplasma pneumoniae Not Detected (Not Detect); Parainfluenza Virus 1 Not Detected (Not Detect); Parainfluenza Virus 2 Not Detected (Not Detect); Parainfluenza Virus 3 Not Detected (Not Detect); Parainfluenza Virus 4 Not Detected (Not Detect); Respiratory Syncytial Virus Not Detected (Not Detect); SARS- CoV-2 Detected (Not Detecte)
[2023-12-07 13:05] LABS: Troponin I 0.791 ng/mL (0.01-0.034)
--- NOTE | 2023-12-07 13:54 | DI.CT.S_ITS ---
PROCEDURE: CT CHEST ABD PEL WO CON INDICATIONS: lymphnodes, uti, covid TECHNIQUE: After the administration of oral contrast, 5 mm thick sections acquired from the lung apices to the symphysis pubis. 5 mm thick coronal and sagittal reformats acquired, with additional 7 mm coronal MIP reformats through the lungs. For radiation dose reduction, the following was used: automated exposure control, adjustment of mA and/or kV according to patient size. COMPARISON: None. FINDINGS: Image quality: Diagnostic. CHEST: Lower Neck: No enlarged lymph nodes. Thyroid: No thyroid nodules which require sonographic follow up, per consensus guidelines. Axillae: No enlarged lymph nodes. Chest Wall: Unremarkable. Bones: Unremarkable. Lungs and Pleura: No pneumothorax or pleural effusions. Hazy ground-glass opacities are seen scattered in bilateral lung alamo most notably involving posterior medial aspect of right lower lobe. Mild bronchiectasis in bilateral lung alamo are also seen. Heart: Heart size is mildly enlarged. No pericardial effusion. Thoracic Vessels: The aorta and pulmonary arteries demonstrate normal size. Moderate atherosclerotic calcifications are noted in coronary vessels. Mediastinum and Kay: No enlarged lymph nodes. Subcentimeter lymph nodes are seen in mediastinum measures up to 7 mm in size. Esophagus: No wall thickening. Small hiatal hernia. ABDOMEN: Liver: No solid mass. Gallbladder: Gallbladder is surgically absent. Biliary ducts: No biliary dilation. Pancreas: No ductal dilation. Spleen: Size is within normal limits. Adrenal Glands: No adrenal nodules. Left adrenal thickening is seen. Kidneys and Ureters: No hydronephrosis. No solid mass. No complex renal cystic lesion which requires follow up. Excreted IV contrast from earlier CT angiogram of head and neck study is seen within bilateral ureters and urinary bladder. Stomach and Bowel: There is prior gastric bypass surgery with postsurgical changes in epigastric region. Postsurgical changes also noted in left upper quadrant abdomen with surgical anastomosis intact. There is no evidence of bowel obstruction. No abnormal bowel wall thickening. No evidence of acute appendicitis or diverticulitis. No abscess collection. Peritoneum: No abnormal intraperitoneal fluid. No free air. Ventral Wall: Tiny umbilical hernia is seen containing fat only Abdominal Nodes: No retroperitoneal or mesenteric adenopathy by size criteria. Vessels: Aorta and inferior vena cava are normal in size. PELVIS: Pelvic Organs: Unremarkable. Bladder: No gross abnormality. Pelvic Nodes: No enlarged lymph nodes. Miscellaneous: No inguinal hernias are seen. Bones: No aggressive osseous abnormality. There is prior right total hip arthroplasty. Extensive posterior fusion of lumbar spine is also noted. No acute vertebral body compression fracture. IMPRESSION: 1. Ill-defined hazy ground-glass opacities are seen scattered in bilateral lung alamo with associated bronchial wall thickening concerning for pneumonitis versus infiltrate secondary to atypical viral pneumonia. No pleural effusion or pneumothorax. 2. No abnormally enlarged lymph nodes are seen in chest, abdomen or pelvis. 3. No acute inflammatory process is seen in abdomen or pelvis. No free fluid or free air. 4. Extensive postsurgical changes in lumbar spine and right hip with beam hardening artifacts. Dictated by: Pete Ramos M.D. on 12/07/2023 at 14:33 Approved by: Pete Ramos M.D. on 12/07/2023 at 14:44
[2023-12-07] MEDS: ACETAMINOPHEN 325 MG TABLET 975 MG PO (14:28)
[2023-12-07 14:59] LABS: BUN Creatinine Ratio 19.5 (6-22); Blood Urea Nitrogen 33 mg/dL (7-17); Calcium 7.4 mg/dL (8.4-10.2); Carbon Dioxide 12 mmol/L (22-32); Chloride 118 mmol/L (98-107); Estimated Glomerular Filt Rate 31 mL/min (>60); Glucose 159 mg/dL (80-110); HEMOLYSIS < 15 (0-50); Potassium 4.7 mmol/L (3.4-5.1); Sodium 138 mmol/L (137-145)
--- NOTE | 2023-12-07 15:09 | DI.MRI.S_ITS ---
PROCEDURE: MR HEAD/BRAIN WO CON INDICATIONS: possible stroke TECHNIQUE: Non-contrast axial T1 spin echo, axial T2 fast spin echo, sagittal and axial FLAIR, coronal T2 fast spin echo, axial gradient echo, axial diffusion and ADC through the brain. COMPARISON: [facility], CT, CT ANGIO HEAD AND NECK, 12/07/2023, 10:19. FINDINGS: Image quality: Excellent. CSF spaces: Ventricles appear symmetric in size and shape. Basal cisterns are patent. No extra-axial fluid collections. Brain: Small full side of restricted diffusion involving left posterior frontal parietal subcortical white matter consistent with acute infarctions. No intracranial bleeds or mass effects. There is cerebral volume loss for age. There are periventricular and deep white matter chronic small vessel ischemic changes. Brainstem appears normal. No chronic ischemic insults. Normal intravascular flow voids are present. Skull and face: Calvarial bone marrow is normal in signal. Orbits are normal. Sinuses: Sinuses and mastoids are clear. IMPRESSION: 1. Finding is suggestive of small acute infarctions involving left posterior frontal parietal subcortical white matter. 2. No acute intracranial bleed, midline shift or mass effect. 3. Age related volume loss and extensive white matter chronic small vessel ischemic changes. Dictated by: Pete Ramos M.D. on 12/07/2023 at 18:04 Approved by: Pete Ramos M.D. on 12/07/2023 at 18:06
--- NOTE | 2023-12-07 16:59 | PM.CALLCOV.1 ---
Call Coverage Note Note Date of Patient Contact: 12/07/23 Narrative of Care Provided: 78 F who presented with R sided weakness. Labs show marked leukocytosis at 37K, elevated creatinine, non-anion gap acidosis with bicarb of 12, initial troponin I of 0.863 improved to 0.791. No known CAD but does have peripheral arterial disease on outpatient notes and b/l mild carotid stenosis. She is COVID +. CT and CTA without any acute findings. She has some lymphadenopathy on exam. 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 If MR shows stroke and she is recommended for outpatient evaluation of her elevated troponin and leukocytosis with possible lymphoma it would be reasonable to admit to [facility], however at this time recommend transfer for higher level of care including cardiology and possible oncology consultations.
--- NOTE | 2023-12-07 19:06 | PM.HP.1 ---
History of Present Illness History of Present Illness Date Patient Seen: 12/07/23 Time Patient Seen: 19:06 Chief complaint: CODE STROKE Narrative: This is a 78 year old female with PMH of carotid stenosis, DM, asthma, and non-hodgkins lymphoma (due to see oncology at [facility] after 1cm supraclavicular LN was seen on CT imaging) who presented with R sided weakness this morning when she woke up. Last known normal was yesterday evening. She denies any slurred speech, facial droop, numbness or tingling. She denies prior stroke, palpitations, chest pain, or recent dyspnea on exertion. 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 She reports a cold a couple of weeks ago, lasting for approx. 10 days but now resolved. No current cough or known sick contacts. In the ER, her virtals were unremkarkable. Initial CT and CTA were unremarkable. Lab evaluation showed WBC of 36.8, Hg 9.7, with smudge cells pending pathology review. Chemistries showed an JUAN with Cr of 1.73 with a CO2 of 11. Troponin was 0.863 and improved to 0.791 on repeat. EKG showed NSR without evidence of acute ischemia. Procalcitonin was 91.9. UA was positive and reflexed for culture. CT chest abdomen pelvis was unremarkable for acute pathologies. MR of her brain showed an acute infarct of the left frontal lobe. Upon my evaluation the patient had improvement in her R sided strength, but remains weak. COVID 19 testing was positive. She was admitted for further management. [facility] Medical History Carotid artery disease Non Hodgkin's lymphoma Asthma Diabetes Surgical History History of back surgery H/O tubal ligation History of carpal tunnel surgery History of knee replacement Family History Mother Stroke Father Colon cancer Social History marital status: details: ALSO LIVES WITH GRANDDAUGHTER AND SON-IN-LAW household members: spouse and family lives independently: Yes occupational status: previously employed Smoking Status: Former smoker alcohol intake: current substance use type: does not use Meds Home Medications and Allergies Home Medications Medication Instructions Recorded Confirmed Type meloxicam 7.5 mg tablet 7.5 mg PO DAILY 05/24/22 09/12/23 History omeprazole 20 mg capsule,delayed 20 mg PO DAILY 05/24/22 09/12/23 History release valacyclovir 500 mg tablet 500 mg PO DAILY 05/24/22 09/12/23 History acetaminophen 650 100 ml PO .q8hr Pain 06/19/23 09/12/23 History albuterol sulfate 90 mcg/actuation 2 puff inhalation Q6H PRN airway 06/19/23 09/12/23 History aerosol inhaler escitalopram oxalate 20 mg tablet 20 mg PO DAILY 06/19/23 09/12/23 History hyoscyamine sulfate 0.125 mg tablet 0.25 mg PO QID 06/19/23 09/12/23 History ipratropium 20 mcg-albuterol 100 1 puff inhalation 6XD 06/19/23 09/12/23 History mcg/actuation mist for inhalation (Combivent Respimat) lidocaine 5 % topical patch 1 patch topical DAILY 06/19/23 09/12/23 History lisinopril 40 mg tablet 40 mg PO DAILY 06/19/23 09/12/23 History nystatin 100,000 unit/gram topical 1 applic topical DAILY 06/19/23 09/12/23 History cream nystatin 100,000 unit/gram topical 1 applic topical BID 06/19/23 09/12/23 History powder simvastatin 5 mg tablet 5 mg PO DAILY 06/19/23 09/12/23 History acetaminophen 325 mg capsule 650 mg (2 x 325 mg) PO QID PRN 09/12/23 Rx (Tylenol) pain #60 caps polyethylene glycol 3350 17 17 g PO DAILY #119 grams 09/12/23 Rx gram/dose oral powder (Miralax) Allergies Allergy/AdvReac Type Severity Reaction Status Date / Time gabapentin Allergy Verified 10/05/23 13:22 Sulfa (Sulfonamide Allergy Verified 10/05/23 13:22 Antibiotics) Review of Systems Review of Systems Narrative: All other systems reviewed with the patient and are negative unless otherwise stated. Exam Vital Signs (past 8 hours): - 12/07/23 11:10 12/07/23 11:16 12/07/23 11:16 Pulse Rate 67 66 Respiratory Rate 23 24 Blood Pressure 127/60 Pulse Oximetry 95 96 Oxygen Delivery Method 12/07/23 11:20 12/07/23 11:29 12/07/23 11:30 Pulse Rate 66 66 Respiratory Rate 25 H Blood Pressure 121/57 L Pulse Oximetry 95 96 Oxygen Delivery Method 12/07/23 11:30 12/07/23 12:00 12/07/23 12:00 Pulse Rate 70 64 Respiratory Rate 27 H 24 Blood Pressure 117/60 Pulse Oximetry 96 97 Oxygen Delivery Method Room Air 12/07/23 12:30 12/07/23 12:42 12/07/23 12:42 Pulse Rate 67 63 Respiratory Rate 25 H 26 H Blood Pressure 137/63 Pulse Oximetry 97 98 Oxygen Delivery Method 12/07/23 12:50 12/07/23 13:00 12/07/23 13:01 Pulse Rate 64 64 Respiratory Rate 27 H 26 H Blood Pressure 126/60 Pulse Oximetry 95 96 Oxygen Delivery Method Room Air 12/07/23 13:01 12/07/23 13:10 12/07/23 13:20 Pulse Rate 64 62 62 Respiratory Rate 26 H 24 24 Blood Pressure Pulse Oximetry 96 96 96 Oxygen Delivery Method 12/07/23 13:30 12/07/23 13:31 12/07/23 13:31 Pulse Rate 63 63 Respiratory Rate 31 H 25 H Blood Pressure 121/58 L Pulse Oximetry 96 96 Oxygen Delivery Method 12/07/23 14:00 12/07/23 14:00 12/07/23 14:30 Pulse Rate 64 62 Respiratory Rate 25 H 22 Blood Pressure 132/60 Pulse Oximetry 96 96 Oxygen Delivery Method Room Air 12/07/23 15:00 12/07/23 15:30 12/07/23 15:35 Pulse Rate 65 66 Respiratory Rate 24 31 H Blood Pressure 143/67 H Pulse Oximetry 96 97 Oxygen Delivery Method 12/07/23 15:35 12/07/23 16:00 12/07/23 16:01 Pulse Rate 65 63 62 Respiratory Rate 20 20 23 Blood Pressure Pulse Oximetry 96 97 97 Oxygen Delivery Method Room Air 12/07/23 16:01 12/07/23 16:30 12/07/23 16:30 Pulse Rate 61 Respiratory Rate 18 Blood Pressure 144/60 H 131/61 Pulse Oximetry 96 Oxygen Delivery Method 12/07/23 16:40 12/07/23 16:50 12/07/23 17:25 Pulse Rate 65 66 67 Respiratory Rate 23 Blood Pressure Pulse Oximetry 95 96 95 Oxygen Delivery Method Room Air 12/07/23 17:30 12/07/23 17:38 12/07/23 17:38 Pulse Rate 64 64 Respiratory Rate 21 21 Blood Pressure 113/86 Pulse Oximetry 95 96 Oxygen Delivery Method 12/07/23 17:40 12/07/23 17:50 12/07/23 18:00 Pulse Rate 65 64 64 Respiratory Rate 23 24 20 Blood Pressure Pulse Oximetry 95 96 97 Oxygen Delivery Method 12/07/23 18:00 12/07/23 18:10 12/07/23 18:20 Pulse Rate 69 65 Respiratory Rate 24 22 Blood Pressure 108/54 L Pulse Oximetry 97 97 Oxygen Delivery Method Room Air 12/07/23 18:32 Pulse Rate 72 Respiratory Rate Blood Pressure Pulse Oximetry 92 Oxygen Delivery Method Oxygen Delivery Method Room Air Narrative Exam Narrative: General:? Patient is well developed and well nourished, in no distress at this time. HEENT:? Normocephalic, atraumatic, extraocular muscles intact, oral pharynx is clear and mucous membranes are moist. Neck: supple and symmetric, trachea is midline, no cervical adenopathy. Negative for JVD Chest:? Normal AP diameter and contour without kyphoscoliosis, no tachypnea, equal chest rise bilaterally. Lungs:? CTA b/l no wheezing rhonchi or rales. Cardio:?RRR no m/r/g. Abdomen: S NT ND. Musculoskeletal:? Muscle strength and tone are equal within normal limits, no deformity. Extremities: No edema or joint effusions. No cyanosis or clubbing. Skin:? Pale,? Warm to touch,dry and intact without rashes, ulcerations or petechiae.? Neuro:? Alert and orientated x3,? sensation to touch intact in all extremities, no gross deficits noted of cranial nerves. 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 Patient has a well-kept appearance, appropriate affect, mental status attitude thought context and judgment are appropriate for age. Objective ECG Impression: NSR with no acute ischemia Labs 12/07/23 10:38 12/07/23 14:41 Labs: Laboratory Results - last 24 hr 12/07/23 12/07/23 12/07/23 10:38 11:19 11:31 WBC 36.8 H* RBC 2.86 L Hgb 9.7 L Hct 30.9 L MCV 108.1 H MCH 34.0 MCHC 31.5 RDW 14.7 Plt Count 226 Neut % (Auto) Not Reportable Lymph % (Auto) Not Reportable [place] % (Auto) Not Reportable Eos % (Auto) Not Reportable Baso % (Auto) Not Reportable Lymph # (Auto) Not Reportable [place] # (Auto) Not Reportable Baso # (Auto) Not Reportable Total Counted 100 Seg Neutrophils % 84.0 H Band Neutrophils % 5.0 Lymphocytes % (Manual) 10.0 L Monocytes % (Manual) 1.0 L Neutrophils # (Manual) 16349 H Smudge Cells 1+ H Toxic Granulation Present H RBC Morphology See below Macrocytosis 1+ H PT 13.1 H INR 1.1 APTT 31 Sodium 138 Potassium 4.7 Chloride 117 H Carbon Dioxide 11 L BUN 33 H Creatinine 1.73 H Estimated GFR 30 L BUN/Creatinine Ratio 19.1 Glucose 208 H Lactate 1.8 Calcium 7.7 L Total Bilirubin 0.3 AST 35 ALT 24 Alkaline Phosphatase 74 Total Creatine Kinase 86 Troponin I 0.863 H* Total Protein 5.7 L Albumin 3.3 L Globulin 2.4 Albumin/Globulin Ratio 1.4 Procalcitonin 91.9 H Urine Color Yellow Urine Appearance Cloudy Urine pH 5.0 Ur Specific [place] 1.015 Urine Protein 2+ H Urine Glucose (UA) Negative Urine Ketones Trace H Urine Occult Blood 1+ H Urine Nitrate Positive H Urine Bilirubin Negative Urine Urobilinogen 0.2 Ur Leukocyte Esterase Trace H Urine RBC 0-1/hpf Urine WBC 5-10/hpf H Ur Squamous Epith Cells 0-1 /hpf Urine Bacteria Many (>30) H Ur Culture Indicated? Specimen cultured Vol Urine Centrifuged 10ml (spun) U Opiates 300ng/mL cut Negative Ur Oxycodone Screen Negative Urine Methadone Screen Negative Ur Barbiturates Screen Negative U Tricyclic Antidepress Negative Ur Phencyclidine Scrn Negative Ur Amphetamines Screen Negative U Methamphetamines Scrn Negative Ur MDMA Scrn (Ecstasy) Negative U Benzodiazepines Scrn Negative Urine Cocaine Screen Negative U Marijuana (THC) Screen Negative Urine Specific [place] Ethyl Alcohol < 10 Ur Creatinine Chlamy pneumoniae PCR Not detected Adenovirus (PCR) Not detected B.parapertussis DNA PCR Not detected Coronavirus OC43 (PCR) Not detected Coronavirus HKU1 (PCR) Not detected Coronavirus 229E (PCR) Not detected SARS-CoV-2 (PCR) Detected H Coronavirus NL63 (PCR) Not detected Human Metapneumovir PCR Not detected Influenza Type A (PCR) Not detected Influenza Type B (PCR) Not detected M. pneumoniae (PCR) Not detected Parainfluenza 1 (PCR) Not detected Parainfluenza 2 (PCR) Not detected Parainfluenza 3 (PCR) Not detected Parainfluenza 4 (PCR) Not detected RSV (PCR) Not detected Entero/Rhino (PCR) Not detected 12/07/23 12/07/23 12/07/23 11:31 12:30 14:41 WBC RBC Hgb Hct MCV MCH MCHC RDW Plt Count Neut % (Auto) Lymph % (Auto) [place] % (Auto) Eos % (Auto) Baso % (Auto) Lymph # (Auto) [place] # (Auto) Baso # (Auto) Total Counted Seg Neutrophils % Band Neutrophils % Lymphocytes % (Manual) Monocytes % (Manual) Neutrophils # (Manual) Smudge Cells Toxic Granulation RBC Morphology Macrocytosis PT INR APTT Sodium 138 Potassium 4.7 Chloride 118 H Carbon Dioxide 12 L BUN 33 H Creatinine 1.69 H Estimated GFR 31 L BUN/Creatinine Ratio 19.5 Glucose 159 H Lactate Calcium 7.4 L Total Bilirubin AST ALT Alkaline Phosphatase Total Creatine Kinase Troponin I 0.791 H* Total Protein Albumin Globulin Albumin/Globulin Ratio Procalcitonin Urine Color Urine Appearance Urine pH Normal Ur Specific [place] Urine Protein Urine Glucose (UA) Urine Ketones Urine Occult Blood Urine Nitrate Urine Bilirubin Urine Urobilinogen Ur Leukocyte Esterase Urine RBC Urine WBC Ur Squamous Epith Cells Urine Bacteria Ur Culture Indicated? Vol Urine Centrifuged U Opiates 300ng/mL cut Ur Oxycodone Screen Urine Methadone Screen Ur Barbiturates Screen U Tricyclic Antidepress Ur Phencyclidine Scrn Ur Amphetamines Screen U Methamphetamines Scrn Ur MDMA Scrn (Ecstasy) U Benzodiazepines Scrn Urine Cocaine Screen U Marijuana (THC) Screen Urine Specific [place] Normal Ethyl Alcohol Ur Creatinine Normal Chlamy pneumoniae PCR Adenovirus (PCR) B.parapertussis DNA PCR Coronavirus OC43 (PCR) Coronavirus HKU1 (PCR) Coronavirus 229E (PCR) SARS-CoV-2 (PCR) Coronavirus NL63 (PCR) Human Metapneumovir PCR Influenza Type A (PCR) Influenza Type B (PCR) M. pneumoniae (PCR) Parainfluenza 1 (PCR) Parainfluenza 2 (PCR) Parainfluenza 3 (PCR) Parainfluenza 4 (PCR) RSV (PCR) Entero/Rhino (PCR) Assessment & Plan Assessment & Plan narrative: 1. CVA - with presenting NIHSS 2, now improved to 1, give plavix load 300 mg now, continue asa and plavix x21 days unless evidence of afib - PT/OT/CONTACT CENTER ASSOCIATE evaluations ordered - MR confirming L frontal infarct - NIHSS qshift - allow permissive HTN - tele ordered - check TTE 2. Acute cystitis - CT abdomen negative for obstructing stone - does have recent urinary frequency - treat with ceftriaxone x3 days. Follow up cultures. 3. Leukocytosis with possible active Non hodgkins lymphoma - recent lymph node on outside CT no longer present on current imaging today but WBC at 37K with smudge cells is suspicious, has outpatient follow up with Onc arranged and leukocytosis may be due to acute cystitis. 4. HTN - continue home antihypertensives 5. Diabetes, type 2, on insulin - continue lantus 8 U AM, 4 U TID AC, and low dose sliding scale. - A1c ordered 6. Metabolic acidosis - possibly due to JUAN, continue IV fluids for now, unclear etiology at this time for her NAGMA. 7. JUAN - improved with IV fluids, will continue for now 8. Myocardial injury - will check echo as above. Trop 0.8 improved to 0.7 on repeat. No EKG findings of ischemia or chest pain. 9. COVID 19 pneumonia, likely resolved. - asymptomatic and likely resolved symptoms from 2 weeks ago, but patient never tested as outpatient. Continue isolation precautions. Code: Full, surrogate is patient's granddaughter ([facility] manager case) DVT: Lovenox daily I have utilized all available immediate resources to obtain, update, or review the patient's current medications. Dispo: patient admitted under inpatient status. Unclear if will be able to discharge home or possible SNF or acute rehab, will have PT/OT and speech evaluations. Additional history obtained via discussions with the ER provider. These discussions contributed to the creation of the above assessment and plan. I have reviewed patient's presenting documentation, labs, and imaging personally. Time-Based Coding :: [TOTAL MINUTES] spent with patient and on the chart (including review of chart, obtaining history, exam, reviewing outside data, placing orders, documenting exam and treatment plan, and counseling patient) on [DATE]. Scores NIHSS Level of Conciousness: Alert, keenly responsive Ask month/age: Answers both questions correctly. Open/close eyes, close hand: Performs both tasks correctly Best gaze horizontal: Normal Visual [place]: No visual loss Facial palsy: Normal symetrical movement Left arm drift: No drift for full 10 sec Right arm drift: No drift for full 10 sec Left leg drift: No drift for full 5 sec Right leg drift: Drifts down, not to bed Limb ataxia: Absent Sensory on face/arms/legs: Normal, no sensory loss Best language: No aphasia, normal Dysarthria: Normal Extinction or inattention: No abnormality Total NIH Stroke scale score: 1
[2023-12-07] MEDS: cefTRIAXone 1,000 MG in SODIUM CHLORIDE 0.9% 100 ML 200 MG IV (20:52)
[2023-12-07] MEDS: CLOPIDOGREL 75 MG TABLET 300 MG PO (20:52)
[2023-12-07] MEDS: ATORVASTATIN 20 MG TABLET 40 MG PO (20:52)
[2023-12-07] MEDS: INSULIN LISPRO 100 UNIT/ML 3ML VIAL SUBCUT (21:33)
[2023-12-08] VITALS (8 sets, daily range): BP systolic 140–156; BP diastolic 45–60; PULSE 75–89; RESP 18–19; TEMP 36.3–37.1; O2SAT 92–98
[2023-12-08] MEDS: ACETAMINOPHEN 325 MG TABLET 650 MG PO (02:28)
[2023-12-08 02:43] LABS: Acinetobacter calcoa-baumannii Not Detected (Not Detect); Bacteroides fragilis Not Detected (Not Detect); CTX-M Resistance Not Detected (Not Detect); Candida albicans Not Detected (Not Detect); Candida auris Not Detected (Not Detect); Candida glabrata Not Detected (Not Detect); Candida krusei Not Detected (Not Detect); Candida parapsilosis Not Detected (Not Detect); Candida tropicalis Not Detected (Not Detect); Cryptococcus neoformans/gatti Not Detected (Not Detect); Enterobacter cloacae complex Not Detected (Not Detect); Enterobacterales Detected (Not Detect); Enterococcus faecalis Not Detected (Not Detect); Enterococcus faecium Not Detected (Not Detect); Haemophilus influenzae Not Detected (Not Detect); IMP Resistance Not Detected (Not Detect); KPC Resistance Not Detected (Not Detect); Klebsiella aerogenes Not Detected (Not Detect); Listeria monocytogenes Not Detected (Not Detect); NDM Resistance Not Detected (Not Detect); Neisseria meningitidis Not Detected (Not Detect); OXA-48-like Resistance Not Detected (Not Detect); Proteus species Not Detected (Not Detect); Pseudomonas aeruginosa Not Detected (Not Detect); Salmonella species Not Detected (Not Detect); Serratia marcescens Not Detected (Not Detect); Staphylococcus epidermidis Not Detected (Not Detect); Staphylococcus lugdunensis Not Detected (Not Detect); Staphylococcus species Not Detected (Not Detect); Stenotrophomonas maltophilia Not Detected (Not Detect); Streptococcus agalactiae (Gr B Not Detected (Not Detect); Streptococcus pneumonia Not Detected (Not Detect); Streptococcus pyogenes (Gr A) Not Detected (Not Detect); Streptococcus species Not Detected (Not Detect); VIM Resistance Not Detected (Not Detect); mcr-1 Resistance Not Detected (Not Detect)
[2023-12-08 06:42] LABS: Add Manual Diff / Slide Review NO; Basophils Absolute Auto 0 /uL (0-100); Eosinophils Absolute Auto 0 /uL (0-450); Eosinophils Percent Auto 0.2 % (2-4); Hematocrit 28.3 % (36-46); Hemoglobin 9.1 g/dL (12.0-16.0); Lymphocytes Absolute Auto 2400 /uL (1100-4500); Lymphocytes Percent Auto 9.9 % (25-40); Mean Corpuscular HGB Conc 32.1 % (30-36); Mean Corpuscular Hemoglobin 33.9 PG (26-34); Mean Corpuscular Volume 105.7 fL (80-100); Monocytes Absolute Auto 1100 /uL (0-900); Monocytes Percent Auto 4.5 % (3-14); Neutrophils Absolute Auto 20300 /uL (1500-7000); Neutrophils Percent Auto 85.4 % (50-75); Platelet Count 198 X10^3/uL (150-400); Red Blood Cell Count 2.68 X10^6/uL (4.0-5.2); Red Cell Distribution Width 13.9 % (11.6-14.8); White Blood Cell Count 23.8 X10^3/uL (4.5-11.0)
[2023-12-08 06:57] LABS: Alanine Aminotransferase 16 IU/L (<35); Albumin 3.1 g/dL (3.5-5.0); Albumin Globulin Ratio 1.3 (1.0-2.8); Alkaline Phosphatase 78 U/L (38-126); Aspartate Aminotransferase 27 IU/L (14-36); BUN Creatinine Ratio 21.7 (6-22); Bilirubin Total 0.3 mg/dL (0.2-1.3); Blood Urea Nitrogen 34 mg/dL (7-17); Calcium 7.4 mg/dL (8.4-10.2); Carbon Dioxide 12 mmol/L (22-32); Chloride 118 mmol/L (98-107); Estimated Glomerular Filt Rate 33 mL/min (>60); Globulin 2.4 g/dL (1.7-4.1); Glucose 130 mg/dL (80-110); HEMOLYSIS < 15 (0-50); Magnesium 1.8 mg/dL (1.6-2.3); Potassium 4.3 mmol/L (3.4-5.1); Sodium 136 mmol/L (137-145); Total Protein 5.5 g/dL (6.3-8.2)
[2023-12-08 07:10] LABS: Hemoglobin A1C% w Est Avg Glu 5.8 % (4.0-6.0)
[2023-12-08 07:31] LABS: TSH w/ Reflex to FT4 0.97 uIU/mL (0.47-4.68)
--- NOTE | 2023-12-08 08:09 | P.PN_ITS ---
Subjective Subjective Interval history: From H&P: This is a 78 year old female with PMH of carotid stenosis, DM, asthma, and non-hodgkins lymphoma (due to see oncology at [facility] after 1cm supraclavicular LN was seen on CT imaging) who presented with R sided weakness this morning when she woke up. Last known normal was yesterday evening. She denies any slurred speech, facial droop, numbness or tingling. She denies prior stroke, palpitations, chest pain, or recent dyspnea on exertion. 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 She reports a cold a couple of weeks ago, lasting for approx. 10 days but now resolved. No current cough or known sick contacts. In the ER, her virtals were unremkarkable. Initial CT and CTA were unremarkable. Lab evaluation showed WBC of 36.8, Hg 9.7, with smudge cells pending pathology review. Chemistries showed an JUAN with Cr of 1.73 with a CO2 of 11. Troponin was 0.863 and improved to 0.791 on repeat. EKG showed NSR without evidence of acute ischemia. Procalcitonin was 91.9. UA was positive and reflexed for culture. CT chest abdomen pelvis was unremarkable for acute pathologies. MR of her brain showed an acute infarct of the left frontal lobe. Upon my evaluation the patient had improvement in her R sided strength, but remains weak. COVID 19 testing was positive. She was admitted for further management. S: She was doing well today. Her blood cultures are positive for Gram-negative bacillus. She was quite weak in the right arm and leg. She can lift the arm up to about shoulder height while sitting in a chair. She can also straight leg raise the right leg but only for about 3 seconds. She has minimal slurred speech. She has a very mild headache which she had yesterday as well. She is coughing but denies shortness a breath. She was in coughing for 2 weeks. No nausea, or abdominal pain. Exam Vital Signs (past 8 hours): - 12/08/23 04:30 12/08/23 04:30 Temperature 97.3 F L Pulse Rate 86 Respiratory Rate 18 Blood Pressure 147/51 H Pulse Oximetry 93 93 Oxygen Delivery Method Room Air Oxygen Flow Rate 0 Oxygen Delivery Method Room Air Oxygen Flow Rate 0 Narrative Exam Narrative: NAD, alert and oriented. Fluent speech. Lungs are clear, normal rate and effort. Heart is regular, no murmur gallop or rub. Abdomen is soft, non distended. Extremities are free of edema. She can lift the right arm up to about shoulder level while sitting and hold it up for about 4 seconds. She can straight leg raise the right leg for about 3 seconds and the left leg for about 5-7 seconds. Her left arm moves easily above her head. Her speech sounds fairly normal. Objective Imaging MRI - head: Radiologist's impression: 1. Finding is suggestive of small acute infarctions involving left posterior frontal parietal subcortical white matter. 2. No acute intracranial bleed, midline shift or mass effect. 3. Age related volume loss and extensive white matter chronic small vessel ischemic changes. Labs 12/08/23 06:09 12/08/23 06:09 Labs: Laboratory Results - last 24 hr 12/07/23 12/07/23 12/07/23 10:38 11:19 11:31 WBC 36.8 H* RBC 2.86 L Hgb 9.7 L Hct 30.9 L MCV 108.1 H MCH 34.0 MCHC 31.5 RDW 14.7 Plt Count 226 Neut % (Auto) Not Reportable Lymph % (Auto) Not Reportable Bryan % (Auto) Not Reportable Eos % (Auto) Not Reportable Baso % (Auto) Not Reportable Neut # (Auto) Lymph # (Auto) Not Reportable Bryan # (Auto) Not Reportable Eos # (Auto) Baso # (Auto) Not Reportable Total Counted 100 Seg Neutrophils % 84.0 H Band Neutrophils % 5.0 Lymphocytes % (Manual) 10.0 L Monocytes % (Manual) 1.0 L Neutrophils # (Manual) 49496 H Smudge Cells 1+ H Toxic Granulation Present H RBC Morphology See below Macrocytosis 1+ H PT 13.1 H INR 1.1 APTT 31 Sodium 138 Potassium 4.7 Chloride 117 H Carbon Dioxide 11 L BUN 33 H Creatinine 1.73 H Estimated GFR 30 L BUN/Creatinine Ratio 19.1 Glucose 208 H Hemoglobin A1c Lactate 1.8 Calcium 7.7 L Magnesium Total Bilirubin 0.3 AST 35 ALT 24 Alkaline Phosphatase 74 Total Creatine Kinase 86 Troponin I 0.863 H* Total Protein 5.7 L Albumin 3.3 L Globulin 2.4 Albumin/Globulin Ratio 1.4 Procalcitonin 91.9 H TSH Urine Color Yellow Urine Appearance Cloudy Urine pH 5.0 Ur Specific [place] 1.015 Urine Protein 2+ H Urine Glucose (UA) Negative Urine Ketones Trace H Urine Occult Blood 1+ H Urine Nitrate Positive H Urine Bilirubin Negative Urine Urobilinogen 0.2 Ur Leukocyte Esterase Trace H Urine RBC 0-1/hpf Urine WBC 5-10/hpf H Ur Squamous Epith Cells 0-1 /hpf Urine Bacteria Many (>30) H Ur Culture Indicated? Specimen cultured Vol Urine Centrifuged 10ml (spun) U Opiates 300ng/mL cut Negative Ur Oxycodone Screen Negative Urine Methadone Screen Negative Ur Barbiturates Screen Negative U Tricyclic Antidepress Negative Ur Phencyclidine Scrn Negative Ur Amphetamines Screen Negative U Methamphetamines Scrn Negative Ur MDMA Scrn (Ecstasy) Negative U Benzodiazepines Scrn Negative Urine Cocaine Screen Negative U Marijuana (THC) Screen Negative Urine Specific [place] Ethyl Alcohol < 10 Ur Creatinine A.calcoaceticus-baumannii cmplx PCR Chlamy pneumoniae PCR Not detected Adenovirus (PCR) Not detected Bacteroides fragilis B.parapertussis DNA PCR Not detected Erika albicans (PCR) Erika auris (PCR) C. glabrata (PCR) C. krusei (PCR) C. parapsilosis (PCR) C. tropicalis (PCR) Coronavirus OC43 (PCR) Not detected Coronavirus HKU1 (PCR) Not detected Coronavirus 229E (PCR) Not detected SARS-CoV-2 (PCR) Detected H Coronavirus NL63 (PCR) Not detected C. neoform/gattii (PCR) Enterobacterales (PCR) E. cloacae complex PCR Enterococc faecalis PCR Enterococc faecium PCR E. coli (PCR) H. influenzae (PCR) Human Metapneumovir PCR Not detected Influenza Type A (PCR) Not detected Influenza Type B (PCR) Not detected Klebsiella aerogenes (PCR) Klebsiella oxytoca PCR Klebsiella pneumoniae List. monocytogenes PCR M. pneumoniae (PCR) Not detected N. meningitidis (PCR) Parainfluenza 1 (PCR) Not detected Parainfluenza 2 (PCR) Not detected Parainfluenza 3 (PCR) Not detected Parainfluenza 4 (PCR) Not detected Proteus species (PCR) RSV (PCR) Not detected Entero/Rhino (PCR) Not detected Salmonella spp. (PCR) Serratia marcescens PCR Staphylococcus sp PCR Staph aureus (PCR) mecA/C & MREJ Resist Gene mecA/C-Methicil Resis Gene mcr-1 Colistin Res Gene PCR Staph epidermidis (PCR) Staph lugdunensis PCR S. maltophilia (PCR) Streptococcus sp PCR Group A Strep (PCR) Strep agalactiae (PCR) Strep pneumoniae (PCR) P. aeruginosa (PCR) Paola/B-Vanco Res Genes blaIMP Car res Gene PCR KPC-Carbap Res Gene PCR blaNDM Car Res Gene PCR OXA-48 Carbapenem Resis Gene (PCR) blaVIM Car Res Gene PCR CTX-M Gene Resistance (PCR) 12/07/23 12/07/23 12/07/23 11:31 12:30 14:41 WBC RBC Hgb Hct MCV MCH MCHC RDW Plt Count Neut % (Auto) Lymph % (Auto) Bryan % (Auto) Eos % (Auto) Baso % (Auto) Neut # (Auto) Lymph # (Auto) Bryan # (Auto) Eos # (Auto) Baso # (Auto) Total Counted Seg Neutrophils % Band Neutrophils % Lymphocytes % (Manual) Monocytes % (Manual) Neutrophils # (Manual) Smudge Cells Toxic Granulation RBC Morphology Macrocytosis PT INR APTT Sodium 138 Potassium 4.7 Chloride 118 H Carbon Dioxide 12 L BUN 33 H Creatinine 1.69 H Estimated GFR 31 L BUN/Creatinine Ratio 19.5 Glucose 159 H Hemoglobin A1c Lactate Calcium 7.4 L Magnesium Total Bilirubin AST ALT Alkaline Phosphatase Total Creatine Kinase Troponin I 0.791 H* Total Protein Albumin Globulin Albumin/Globulin Ratio Procalcitonin TSH Urine Color Urine Appearance Urine pH Normal Ur Specific [place] Urine Protein Urine Glucose (UA) Urine Ketones Urine Occult Blood Urine Nitrate Urine Bilirubin Urine Urobilinogen Ur Leukocyte Esterase Urine RBC Urine WBC Ur Squamous Epith Cells Urine Bacteria Ur Culture Indicated? Vol Urine Centrifuged U Opiates 300ng/mL cut Ur Oxycodone Screen Urine Methadone Screen Ur Barbiturates Screen U Tricyclic Antidepress Ur Phencyclidine Scrn Ur Amphetamines Screen U Methamphetamines Scrn Ur MDMA Scrn (Ecstasy) U Benzodiazepines Scrn Urine Cocaine Screen U Marijuana (THC) Screen Urine Specific [place] Normal Ethyl Alcohol Ur Creatinine Normal A.calcoaceticus-baumannii cmplx PCR Chlamy pneumoniae PCR Adenovirus (PCR) Bacteroides fragilis B.parapertussis DNA PCR Erika albicans (PCR) Erika auris (PCR) C. glabrata (PCR) C. krusei (PCR) C. parapsilosis (PCR) C. tropicalis (PCR) Coronavirus OC43 (PCR) Coronavirus HKU1 (PCR) Coronavirus 229E (PCR) SARS-CoV-2 (PCR) Coronavirus NL63 (PCR) C. neoform/gattii (PCR) Enterobacterales (PCR) E. cloacae complex PCR Enterococc faecalis PCR Enterococc faecium PCR E. coli (PCR) H. influenzae (PCR) Human Metapneumovir PCR Influenza Type A (PCR) Influenza Type B (PCR) Klebsiella aerogenes (PCR) Klebsiella oxytoca PCR Klebsiella pneumoniae List. monocytogenes PCR M. pneumoniae (PCR) N. meningitidis (PCR) Parainfluenza 1 (PCR) Parainfluenza 2 (PCR) Parainfluenza 3 (PCR) Parainfluenza 4 (PCR) Proteus species (PCR) RSV (PCR) Entero/Rhino (PCR) Salmonella spp. (PCR) Serratia marcescens PCR Staphylococcus sp PCR Staph aureus (PCR) mecA/C & MREJ Resist Gene mecA/C-Methicil Resis Gene mcr-1 Colistin Res Gene PCR Staph epidermidis (PCR) Staph lugdunensis PCR S. maltophilia (PCR) Streptococcus sp PCR Group A Strep (PCR) Strep agalactiae (PCR) Strep pneumoniae (PCR) P. aeruginosa (PCR) [place]/B-Vanco Res Genes blaIMP Car res Gene PCR KPC-Carbap Res Gene PCR blaNDM Car Res Gene PCR OXA-48 Carbapenem Resis Gene (PCR) blaVIM Car Res Gene PCR CTX-M Gene Resistance (PCR) 12/08/23 12/08/23 06:09 11:45 WBC 23.8 H RBC 2.68 L Hgb 9.1 L Hct 28.3 L MCV 105.7 H MCH 33.9 MCHC 32.1 RDW 13.9 Plt Count 198 Neut % (Auto) 85.4 H Lymph % (Auto) 9.9 L Bryan % (Auto) 4.5 Eos % (Auto) 0.2 L Baso % (Auto) 0.0 Neut # (Auto) 31039 H Lymph # (Auto) 2400 Bryan # (Auto) 1100 H Eos # (Auto) 0 Baso # (Auto) 0 Total Counted Seg Neutrophils % Band Neutrophils % Lymphocytes % (Manual) Monocytes % (Manual) Neutrophils # (Manual) Smudge Cells Toxic Granulation RBC Morphology Macrocytosis PT INR APTT Sodium 136 L Potassium 4.3 Chloride 118 H Carbon Dioxide 12 L BUN 34 H Creatinine 1.57 H Estimated GFR 33 L BUN/Creatinine Ratio 21.7 Glucose 130 H Hemoglobin A1c 5.8 Lactate Calcium 7.4 L Magnesium 1.8 Total Bilirubin 0.3 AST 27 ALT 16 Alkaline Phosphatase 78 Total Creatine Kinase Troponin I Total Protein 5.5 L Albumin 3.1 L Globulin 2.4 Albumin/Globulin Ratio 1.3 Procalcitonin TSH 0.97 Urine Color Urine Appearance Urine pH Ur Specific [place] Urine Protein Urine Glucose (UA) Urine Ketones Urine Occult Blood Urine Nitrate Urine Bilirubin Urine Urobilinogen Ur Leukocyte Esterase Urine RBC Urine WBC Ur Squamous Epith Cells Urine Bacteria Ur Culture Indicated? Vol Urine Centrifuged U Opiates 300ng/mL cut Ur Oxycodone Screen Urine Methadone Screen Ur Barbiturates Screen U Tricyclic Antidepress Ur Phencyclidine Scrn Ur Amphetamines Screen U Methamphetamines Scrn Ur MDMA Scrn (Ecstasy) U Benzodiazepines Scrn Urine Cocaine Screen U Marijuana (THC) Screen Urine Specific [place] Ethyl Alcohol Ur Creatinine A.calcoaceticus-baumannii cmplx PCR Not detected Chlamy pneumoniae PCR Adenovirus (PCR) Bacteroides fragilis Not detected B.parapertussis DNA PCR Erika albicans (PCR) Not detected Erika auris (PCR) Not detected C. glabrata (PCR) Not detected C. krusei (PCR) Not detected C. parapsilosis (PCR) Not detected C. tropicalis (PCR) Not detected Coronavirus OC43 (PCR) Coronavirus HKU1 (PCR) Coronavirus 229E (PCR) SARS-CoV-2 (PCR) Coronavirus NL63 (PCR) C. neoform/gattii (PCR) Not detected Enterobacterales (PCR) Detected E. cloacae complex PCR Not detected Enterococc faecalis PCR Not detected Enterococc faecium PCR Not detected E. coli (PCR) Detected H. influenzae (PCR) Not detected Human Metapneumovir PCR Influenza Type A (PCR) Influenza Type B (PCR) Klebsiella aerogenes (PCR) Not detected Klebsiella oxytoca PCR Not detected Klebsiella pneumoniae Not detected List. monocytogenes PCR Not detected M. pneumoniae (PCR) N. meningitidis (PCR) Not detected Parainfluenza 1 (PCR) Parainfluenza 2 (PCR) Parainfluenza 3 (PCR) Parainfluenza 4 (PCR) Proteus species (PCR) Not detected RSV (PCR) Entero/Rhino (PCR) Salmonella spp. (PCR) Not detected Serratia marcescens PCR Not detected Staphylococcus sp PCR Not detected Staph aureus (PCR) Not detected mecA/C & MREJ Resist Gene Not applicable mecA/C-Methicil Resis Gene Not applicable mcr-1 Colistin Res Gene PCR Not detected Staph epidermidis (PCR) Not detected Staph lugdunensis PCR Not detected S. maltophilia (PCR) Not detected Streptococcus sp PCR Not detected Group A Strep (PCR) Not detected Strep agalactiae (PCR) Not detected Strep pneumoniae (PCR) Not detected P. aeruginosa (PCR) Not detected [place]/B-Vanco Res Genes Not applicable blaIMP Car res Gene PCR Not detected KPC-Carbap Res Gene PCR Not detected blaNDM Car Res Gene PCR Not detected OXA-48 Carbapenem Resis Gene (PCR) Not detected blaVIM Car Res Gene PCR Not detected CTX-M Gene Resistance (PCR) Not detected PFSH Medical History Carotid artery disease Non Hodgkin's lymphoma Asthma Diabetes Surgical History History of back surgery H/O tubal ligation History of carpal tunnel surgery History of knee replacement Family History Mother Stroke Father Colon cancer Social History marital status: details: ALSO LIVES WITH GRANDDAUGHTER AND SON-IN-LAW household members: spouse and family lives independently: Yes occupational status: previously employed Smoking Status: Former smoker alcohol intake: current substance use type: does not use Assessment & Plan Assessment & Plan narrative: 1. CVA, present on admission and active. Left frontoparietal. 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 2. Pyelonephritis and bacteremia, present on admission and active. - CT abdomen negative for obstructing stone - does have recent urinary frequency - treat with ceftriaxone x3 days. Follow up cultures. 3. Leukocytosis, present on admission and active. - recent lymph node on outside CT no longer present on current imaging today but WBC at 37K with smudge cells is suspicious, has outpatient follow up with Onc arranged and leukocytosis may be due to acute cystitis. 4. HTN, present on admission and active. - continue home antihypertensives 5. Diabetes, type 2, on insulin, present on admission and active. - continue lantus 8 U AM, 4 U TID AC, and low dose sliding scale. - A1c ordered 6. Metabolic acidosis, present on admission and active. - possibly due to JUAN, continue IV fluids for now, unclear etiology at this time for her NAGMA. 7. JUAN, present on admission and active. - improved with IV fluids, will continue for now 8. Troponin elevation, present on admission and active. - will check echo as above. Trop 0.8 improved to 0.7 on repeat. No EKG findings of ischemia or chest pain. 9. COVID 19 pneumonia, likely resolved. - asymptomatic and likely resolved symptoms from 2 weeks ago, but patient never tested as outpatient. Continue isolation precautions. PLAN: -continue medical therapy including dual antiplatelet therapy and statin. -monitor paresis and evolution of symptoms. -continue evaluation with therapies including PT, OT, and speech therapy. -monitor COVID, she was not hypoxic in his had a cough for 2 weeks. -continue IV antibiotics for pyelonephritis and bacteremia. She was responding to ceftriaxone, we will continue. Awaiting culture results. -discharge planning, she will certainly need a senior care facility at discharge. Code: Full, surrogate is patient's granddaughter ([facility] case planner) DVT: Lovenox daily DISPO: / 12/09. Time-Based Coding :: 30 min spent with patient and on the chart (including review of chart, obtaining history, exam, reviewing outside data, placing orders, documenting exam and treatment plan, and counseling patient) on 12/07.
[2023-12-08] MEDS: CLOPIDOGREL 75 MG TABLET PO (09:38)
[2023-12-08] MEDS: ASPIRIN EC 81 MG TABLET PO (09:38)
--- NOTE | 2023-12-08 09:38 | OT.IP.EVAL ---
Current Diagnoses Cerebral infarction, unspecified (12/07/23) Past Medical History (Last Reviewed 12/08/23 @ 08:11 by Macario Palacios MD) Asthma Carotid artery disease Diabetes Non Hodgkin's lymphoma Surgical History (Last Reviewed 12/08/23 @ 08:11 by Macario Palacios MD) H/O tubal ligation History of back surgery History of carpal tunnel surgery History of knee replacement Occupational Therapy Inpatient Evaluation/Re-Eval M1 PT/OT-IP Prior Functional Status Start: 12/08/23 11:15 Freq: NEEDED Status: Active Protocol: Document 12/08/23 13:17 CGR (Rec: 12/08/23 13:35 CGR [id number]) Medical Review Prior Functional Status Medical History Reviewed Yes Diet/Fluid Consistency Regular Communication Pt is an effective verbal communicator. Mobility and Gait Pt states she ambulated with 4WW in the home, a SPC for mobility from the house<>car, and used her electric scooter which is stored outside to walk her dog Activities of Daily Living and IADL's Pt reports I with simple ADLs Social History Household Members spouse,family Living Arrangements Mobile home Number of Floors (Floors) One Floor Number of Stairs To Enter/Railing? 4 steps and rails on each side to enter home, can only reach one rail at a time Home Environment High Toilet,Walk in Shower Home Equipment Four Wheel Walker,Power Wheelchair/Scooter,Shower Seat without Backrest,Grab Bars Near Toilet Employment Status Retired Additional Social History Comment Pt lives with her granddaughter and the granddaughters . M2 OT-IP Current Condition Start: 12/08/23 13:16 Freq: Status: Active Protocol: Document 12/08/23 13:17 CGR (Rec: 12/08/23 13:35 CGR [id number]) Occupational Therapy Current Condition Current Condition Evaluation Date 12/08/23 Treatment Diagnosis R sided weakness, MRI shows acute L frontal lobe infarct Diagnosis Onset Date 12/07/23 M3 OT- IP Subjective and Pain Start: 12/08/23 13:16 Freq: Status: Active Protocol: Document 12/08/23 13:17 CGR (Rec: 12/08/23 13:35 CGR [id number]) OT- Subjective Occupational Therapy Visit Type Type Initial Evaluation Visit Start Time 09:04 Visit Stop Time 09:38 OT Pain Assessment Pain When Pain Assessed At Rest Pain Present Pain Present Pain Reported Location Back Intensity 2 Scale Used Numeric (0 - 10) Management Techniques Distraction,Modification of Treatment,Re-positioning M4 OT- IP ADL's Start: 12/08/23 13:16 Freq: Status: Active Protocol: Document 12/08/23 13:17 CGR (Rec: 12/08/23 13:35 CGR [id number]) OT [id number] Comments OT Self-Feeding Comments not meal time OT ADL-Grooming General Evaluation Grooming Ability Standby Assistance Areas Needing Assistance Combing/Brushing Hair,Face Washing Comments OT Grooming Comments with the use of her L hand OT ADL-Oral Care General Eval Oral Care Ability Minimal Assistance Areas of Assistance Brushing Teeth,Retrieving/Set- Up of Items Comments Oral Care Comments for opening tooth paste OT ADL-Dressing Comments OT Dressing Comments not performed OT ADL-Toileting Comments OT Toileting Comments not performed OT ADL-Bathing Comments OT Bathing Comments not performed M5 OT- IP IADL's Start: 12/08/23 13:16 Freq: Status: Active Protocol: Document 12/08/23 13:17 CGR (Rec: 12/08/23 13:35 CGR [id number]) OT-Instrumental Activities of Daily Living Deficits IADL Deficits Identified No Deficits Home Safety Awareness Awareness of Need for Assistance at Home Good Awareness Ability to Problem Solve Emergency Able to Problem Solve Situations Medication Management Medication Management No Deficits Identified Money Management Money Management No Deficits Identified Meal Preparation Meal Preparation Caregiver Provides Assist Bevel Polisher Bevel Polisher Caregiver Provides Assist Driving Driving Concerns Identified Regarding Safety Driving Comments 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 M6 OT- IP Functional Cognition Start: 12/08/23 13:16 Freq: Status: Active Protocol: Document 12/08/23 13:17 CGR (Rec: 12/08/23 13:35 CGR [id number]) Cognitive Factors Limiting Selfcare Function Cognitive Ability Level of Alertness Alert Patient Orientation Name,Age,Birthday,Month,Date, Year,Day of Week,Place, Situation Attention Span Ability Capable of Focused Attention, Capable of Sustained Attention Ability to Follow Commands Able to Follow One Step Commands with Increased Time, Able to Follow One Step Commands with Repetition Memory Description No Deficits Noted OT- Vision and Hearing OT- Hearing Assessment OT- Hearing Assessment Hearing Impaired,Use of Hearing Aids OT- Vision Assessment Visual Acuity Glasses For Reading Visual Attentiveness WFL Occular Pursuits WFL Visual Convergence WFL M7 OT- IP Mobility and Balance Start: 12/08/23 13:16 Freq: Status: Active Protocol: Document 12/08/23 13:17 CGR (Rec: 12/08/23 13:35 CGR [id number]) OT- Bed Mobility Assessment Supine to Sit Supine to Sit Assist Maximum Assistance,1 Person Assistance Scooting Scooting to Edge of Bed Maximum Assistance,1 Person Assistance OT-Transfer Assessment Sit to and From Stand Sit to and from Stand Moderate Assistance,1 Person Assistance Transfers Transfer Ability Maximum Assistance,1 Person Assistance Technique Transfer Destination Bed,Chair Transfer Technique Stand Step Pivot Devices Transfer Assistive Devices Gait Belt,Front Wheeled Walker Comments Mobility Comments pt was able to take steps to chair with posterior lean requiring max a for use of walker and balance. OT- Balance Assessment Sitting Balance and Reactions Static Sitting Balance Ability Good Dynamic Sitting Balance Ability Good M8 OT- IP Objective Assessments Start: 12/08/23 13:16 Freq: Status: Active Protocol: Document 12/08/23 13:17 CGR (Rec: 12/08/23 13:35 CGR [id number]) OT Gross Range of Motion Upper Extremity Range of Motion Assessment Within Functional Limits OT Strength Upper Extremity Strength Assessment Right Impaired Comments Strength Comments L grossly 4/5 (shld 4-/5) R shld 3+/5, arm 4-/5, hand 3- /5 all delayed OT- Coordination Assessment Upper Extremity Finger to Nose Test Right UE Impaired Finger Tapping Test Right UE Impaired OT-Muscle Tone Assessment Muscle Tone WNL Yes OT Sensation Assessment Comments Summary Comments Pt states numbness to the R hand that appears to be improving per pt report. Edema Edema Absent M9 OT- IP Assessment and Plan Start: 12/08/23 13:16 Freq: Status: Active Protocol: Document 12/08/23 13:17 CGR (Rec: 12/08/23 13:35 CGR [id number]) OT Summary Assessment and Plan Potential Rehabilitation Potential Excellent Analytic Complexity at Evaluation High Summary OT Impairments Strength,Balance,Coordination, Sensation,Functional Mobility, Self-Feeding,Grooming,Dressing ,Toileting,Bathing,Toilet Transfers,Shower Transfers, Activity Tolerance Progress Towards Goals Progressing Toward Goals Assessment Summary Pt presents as a high complexity evaluation s/p admit for R sided weakness. Pt displays weakness to the RUE and LE and needed max a for transfer to chair. Pt is highly motivated to get home to take care of her . Recommend d/c to acute rehab. Pt has supportive family that live with her and pt is highly motivated. Goals Self-Feeding Goal Independent Grooming Goal Independent Dressing Goal Independent Toileting Goal Independent Bathing Goal Independent Toilet Transfer Goal Independent Shower Transfer Goal Independent Days to Meet Goals 20 Frequency of Treatment Frequency Of Treatment Once a Day Treatment Plan OT Treatment Plan ADL Training,Functional Mobility,Neuromuscular Re- education,Therapeutic Exercises,Patient/Family Education,Discharge Planning Other Treatment Recommendations and Next BSC transfer, ADLs, UE therex Treatment Focus Discharge Recommendations OT Discharge Recommendations Acute Rehab Transportation Needs at Discharge Wheelchair/Cabulance
[2023-12-08] MEDS: INSULIN LISPRO 100 UNIT/ML 3ML VIAL SUBCUT ×3 (09:39→17:29)
[2023-12-08] MEDS: INSULIN GLARGINE 100 UNIT/ML 3ML PEN 8 UNIT SUBCUT (09:39)
[2023-12-08] MEDS: ENOXAPARIN 40 MG/0.4 ML SYRINGE SUBCUT (09:40)
--- NOTE | 2023-12-08 10:36 | CM.DANOTE ---
Addendum entered by KARLO Galarza 12/08/23 14:48: ADD: LM with Patrick at [facility] P [phone], had to LM requesting CB Addendum entered by KARLO Galarza 12/08/23 11:56: ADD: Patient is COVID+, asymptomatic. May be a barrier to timely discharge to IPR vs SNF. Original Note: Initial DCP Assessment Note Pt is a 78 yo female, resident of [facility], arrives with code stroke, CVA confirmed via imaging, admitted for further work up and management. PT/OT/QUANTITATIVE EQUITY HEAD pending; OT recommending Inpatient Rehab (IPR) PCP: Khalida Ramesh Payer: [facility] Reviewed chart, met with patient to introduce self and role. Patient reports she is indp and active. Patient cares for her who has dementia and requires assist with all ADLs; patient's does not wander and does not get up at night, mostly sleeps throughout the day. 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 Provided the senior resource guide, strongly encouraged patient to consider hiring in home care to help her with spouse's care; patient stated appreciation. Patient's daughter is visiting from [place] to care for patient's spouse while she is admitted. OT currently recommending inpatient rehab and patient agreeable. Patient's first choice would be [facility] in [place]. Discussed the need for authorization from [facility] and patient states understanding. BURKE Anna, kindly agreed to send referral to [facility]. CM team will plan to follow clinical course closely; follow up with [facility] admissions. KARLO Skelton Discharge Planning/Care Management CM Discharge Assessment Start: 12/08/23 10:32 Freq: Status: Active Protocol: Document 12/08/23 10:32 LISA (Rec: 12/08/23 10:36 LISA [id number]) Discharge Planning Assessment Assigned Color Consultant KARLO Payne DPOA/Assigned Designee Name Stephenie Jackson granddaughter Contact Information [phone] Advance Directives? Yes Advance Directives on File No History Provided By Patient,Medical Record Prior Living Arrangements House Household Members spouse,family Type of transporation used prior to Drives own vehicle admit Independent with ADL's Yes Is patient alert and oriented? Yes Comment IPR vs SNF anticipated Barriers to Discharge Yes Comment Therapies are recommending IPR before return home Discharge Plan Inpatient Rehab Unit Transportation Arrangement Likely family to transport Additional Comment IPR- Bobby Domingo Whiteboard Updated in Patient Room with Yes name and ext. # of Color Consultant
--- NOTE | 2023-12-08 11:32 | ST.IPSLE ---
Visit Care Team Role Provider Type Khalida Ramesh PA-C Primary Care Provider Physician Research Assistant Member Specialty: Medical Address: [place], [address] Email: [email or web address] Chan DO Emergency Provider Physician Referring Provider Specialty: Emergency Medicine Address: [address] [place] [address], [id number] Email: [email or web address] DO Admit Provider Physician Attending Provider Specialty: Internal Medicine Address: [address] [place] [address], [address] Email: [email or web address] Diagnoses Cerebral infarction, unspecified (12/07/23) Past Medical History (Last Reviewed 12/08/23 @ 08:11 by Macario Palacios MD) Asthma (Medical) Carotid artery disease (Medical) Diabetes (Medical) Non Hodgkin's lymphoma (Medical) Speech-Language Pathology Speech/Language Eval REGIONAL GUIDE Adult Cognitive Linguistic Eval Start: 12/08/23 11:24 Freq: Status: Active Protocol: Document 12/08/23 11:25 CG (Rec: 12/08/23 11:32 CG [id number]) Adult Cognitive Linguistic Evaluation Session Time Visit Start Time 11:00 Visit Stop Time 11:15 Total Visit Minutes 15 Visit Information Visit Number [address] Garcia Reason for Referral Code stroke Setting Assessment Location Acute Care Visit Type Note Type Initial evaluation Next Note Type Next Note Type Discharge Summary Patient Information Identification Type Name Patient History Per H&P: This is a 78 year old female with PMH of carotid stenosis, DM, asthma, and non -hodgkins lymphoma (due to see oncology at [facility] after 1cm supraclavicular LN was seen on CT imaging) who presented with R sided weakness this morning when she woke up. Last known normal was yesterday evening. She denies any slurred speech, facial droop, numbness or tingling. She denies prior stroke, palpitations, chest pain, or recent dyspnea on exertion. 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 She reports a cold a couple of weeks ago, lasting for approx. 10 days but now resolved. No current cough or known sick contacts. In the ER, her virtals were unremkarkable. Initial CT and CTA were unremarkable. Lab evaluation showed WBC of 36.8, Hg 9.7, with smudge cells pending pathology review. Chemistries showed an JUAN with Cr of 1.73 with a CO2 of 11. Troponin was 0.863 and improved to 0.791 on repeat. EKG showed NSR without evidence of acute ischemia. Procalcitonin was 91.9. UA was positive and reflexed for culture. CT chest abdomen pelvis was unremarkable for acute pathologies. MR of her brain showed an acute infarct of the left frontal lobe. Upon my evaluation the patient had improvement in her R sided strength, but remains weak. COVID 19 testing was positive. She was admitted for further management. Pt referred to based on code stroke protocol and L frontal lobe infarct often associated with speech/ language deficits. Hearing Hearing Level Normal Subjective Patient Report Pt was seated in hospital chair dozing upon entry to the room. She quickly awoke and was alert, cooperative, participative throughout evaluation. Appropriate affect and oriented to person, place, situation. Mental Status Alert,Responsive,Cooperative Assessment Oral Motor Examination Completed Yes Results Brief OME completed as part of the Quick Aphasia Battery. No gross deficits noted. Informal Assessment Receptive Language Normal Yes Expressive Language Normal Yes Pragmatic Language Normal Yes Speech Normal Yes Formal Assessment Standardized Test/Screener Type Quick Aphasia Battery (QAB) Administration Complete Results Word comprehension 10.00/10.00 Sentence comprehension 10.00/10 .00 Word finding 10./10.00 Grammatical construction 10./ 10.00 Speech motor programming 10./ 10.00 Repetition 10./10.00 Reading 10./10.00 QAB overall 10./10.00 No aphasia noted. Cognition not formally assessed; however , no gross deficits noted based on observation of pt behaviors. Recommend d/c ST orders. Findings/Results Language Function Within normal limits Prognosis Prognosis Good Based on Cognitive status Plan of Care Speech-Language Treatment No Patient/Caregiver Education Described results of evaluation,Patient expressed understanding of evaluation Discharge Recommendations Home
--- NOTE | 2023-12-08 11:55 | PT.IIE ---
Current Diagnoses Cerebral infarction, unspecified (12/07/23) Surgical History (Last Reviewed 12/08/23 @ 08:11 by Macario Palacios MD) H/O tubal ligation History of back surgery History of carpal tunnel surgery History of knee replacement Medical History (Last Reviewed 12/08/23 @ 08:11 by Macario Palacios MD) Asthma Carotid artery disease Diabetes Non Hodgkin's lymphoma Physical Therapy Inpatient Evaluation/Re-Eval M1 PT/OT-IP Prior Functional Status Start: 12/08/23 11:15 Freq: NEEDED Status: Active Protocol: Document 12/08/23 11:02 MB (Rec: 12/08/23 11:55 MB [id number]) Medical Review Prior Functional Status Medical History Reviewed Yes Diet/Fluid Consistency Regular Communication WNLs Mobility and Gait Pt states she ambulated with 4WW in the home and used her electric scooter which is stored outside to walk her dog Activities of Daily Living and IADL's Pt reports I with simple ADLs Social History Household Members spouse,family Living Arrangements Mobile home Number of Floors (Floors) One Floor Number of Stairs To Enter/Railing? 4 steps and rails on each side to enter home, can only reach one rail at a time Home Environment High Toilet,Walk in Shower Home Equipment Four Wheel Walker,Power Wheelchair/Scooter,Shower Seat without Backrest,Grab Bars Near Toilet Employment Status Retired M2 PT-IP Current Condition Start: 12/08/23 11:15 Freq: NEEDED Status: Active Protocol: Document 12/08/23 11:02 MB (Rec: 12/08/23 11:55 MB [id number]) Physical Therapy Current Condition Current Condition Evaluation Date 12/08/23 Treatment Diagnosis COVID, stroke, TN M3 PT-IP Subjective Start: 12/08/23 11:15 Freq: NEEDED Status: Active Protocol: Document 12/08/23 11:02 MB (Rec: 12/08/23 11:55 MB [id number]) Subjective Physical Therapy Visit Type Type Initial Evaluation Visit Start Time 11:02 Visit Stop Time 11:30 Number of SAWMILL SUPERVISOR Visits 0 Physical Therapy Visit Comments Patient Comments Pt reports history of back pain and no SOB at rest Therapy Pain Assessment Pain When Pain Assessed At Rest Pain Present Pain Present Pain Reported Location Back Intensity 4 Scale Used Numeric (0 - 10) M4 PT-IP Mobility and Gait Start: 12/08/23 11:15 Freq: NEEDED Status: Active Protocol: Document 12/08/23 11:02 MB (Rec: 12/08/23 11:55 MB [id number]) PT-Transfer Assessment Sit to and From Stand Sit to and from Stand Maximum Assistance,Total Assistance,1 Person Assistance ,Use of Upper Extremities Equipment Transfer Assistive Device Gait Belt,Front Wheeled Walker Orthotic/Prosthetic Devices or Brace: No Comments Mobility Comments Pt up in chair upon arrival and PT had hoped to assist pt back to bed. Pt with right- sided hemiparesis and no functional right arm use for STS and she can lift right arm minimally but not development technologist or use for transfer or standing. PT cues pt to push up with left hand. Right foot slips forward and PT blocks with PT's foot. Heavy posterior lean and pt requires max to total assistance to try to stand up and to remain up for a few seconds with left hand on walker, strong posterior lean. Gait Assessment Comments Gait Comments Unable to transition to stepping today PT-Balance Assessment Sitting Balance and Reactions Static Sitting Balance Ability Poor Dynamic Sitting Balance Ability Poor Standing Balance and Reactions Static Standing Balance Ability Poor Dynamic Standing Balance Ability Poor Device Used RW Comments Other Balance Tests/Deviations/Treatment PT props pt's right arm on : pillow in the chair M5 PT-IP Objective Assessments Start: 12/08/23 11:15 Freq: NEEDED Status: Active Protocol: Document 12/08/23 11:02 MB (Rec: 12/08/23 11:55 [id number]) Orientation Orientation/Cognition Level of Alertness Alert Orientation Name,Age,Birthday,Month,Date, Year,Day of Week,Place, Situation Language Function Ability No Deficits Noted Safety Awareness Decreased Safety Awareness Memory Description No Deficits Noted Gross Range of Motion Upper Extremity ROM Assessment Right Impaired Impairments Defer to OT Lower Extremity ROM Assessment Right Impaired Impairments Pt has trouble tolerating ROM and MMT and her right LE is functionally weaker than the left with great toe extension and ankle DF grossly 75% normal range with legs supported in recliner Strength Lower Extremity Strength Assessment Bilaterally Impaired Comments Strength Comments Pt does not tolerate MMT well and c/o pain with PT's hand placement and PT attempts to alter x3 but pt still cannot tolerate. Right ankle and knee and hip are weaker than the left and pt also presents with left knee weakness with attempted testing Coordination Assessment Gross Coordination Gross Coordination Impaired Assessment Coordination Comments Gross motor coordination abnormal with right extremity attempted use for transfer with PT Sensation Assessment Sensation Gross Sensation Right LE Impaired Sensation Description Numbness Muscle Tone Muscle Tone WNL Yes Other Assessments Other Other Assessments PF tone may be starting in RLE , difficult to determine on assessment given pt response M6 PT-IP Treatment Start: 12/08/23 11:15 Freq: NEEDED Status: Active Protocol: Document 12/08/23 11:02 MB (Rec: 12/08/23 11:55 MB [id number]) Physical Therapy Treatment Education Education Provided Safety M7 PT-IP Assessment and Plan Start: 12/08/23 11:15 Freq: NEEDED Status: Active Protocol: Document 12/08/23 11:02 MB (Rec: 12/08/23 11:55 MB [id number]) PT Summary Assessment and Plan Potential Rehabilitation Potential Good Status of Condition at Evaluation Evolving Summary Impairments Pain,ROM,Strength,Balance, Coordination,Sensation,Tone, Bed Mobility,Transfers,Gait, Activity Tolerance Progress Towards Goals Slow Progress - Other Assessment Summary Pt is a 69 y/o female presenting functionally I with ADs at home at baseline. She presents with weakness right extremities as well as sensory changes. She is pleasant and A&O and cooperative with PT today. She has been sitting up a long time upon PT arrival and tiredness, COVID and TN may be affecting functional mobility on assessment. She requires max to total assist from PT to perform STS and maintain standing with left hand on RW today. RUE is not useful for functional mobility with PT. Pt will benefit from acute and post-acute rehab to improve range, strength and functional mobility. Pt does not sleep in a bed at home but a recliner and so no bed mobility goal, though will put bed mobility in treatment plan since she will be using a bed in acute setting. Goals Transfer Goal Contact Guard Assistance Gait Goal Contact Guard Assistance Gait Distance 50 Other Goals Goal for LRAD for transfers and gait and these may include hemiwalker or right plaform walker. If pt advances, progress to stair training with LRAD and no more than min A to start training towards long-term goal of home. Days to Meet Goals 5 Frequency of Treatment Frequency Of Treatment Once a Day Treatment Plan Physical Therapy Treatment Plan Bed Mobility Training,Transfer Training,Gait Training, Therapeutic Exercise,Balance Retraining,Discharge Planning, Hot or Cold Pack,Neuromuscular Re-ed,Coordination Retraining ,Manual Therapy Other Recommendations and Next Treatment Progress transfers Focus Precautions Other Precautions COVID Weight Bearing Status Weight Bearing Status Weight Bear as Tolerated Recommendations To Nursing Amount of Assist Needed Mechanical Lift Discharge Recommendations PT Discharge Recommendations Acute Rehab Transportation Needs at Discharge Wheelchair/Cabulance,Stretcher /Ambulance
--- NOTE | 2023-12-08 15:30 | DI.ECHO.S_ITS ---
[facility] [facility]+ [facility] : : [address] : : [place] : : [id number] : : Phone: [phone] Echocardiogram Report + + :Name: ARMANDO YEUNG Study Date: 12/08/2023 Height: 64 in : :[facility] ReadingLocation: Weight: 195 lb : : Gender: Female BSA: 1.9 m2 : :: 1945 Age: 78 yrs BP: 140/45 mmHg: :Reason For Study: CVA : :Ordering Physician: DARON, : :RACHEL CLAY Performed By: Jeremy Espinoza : :Referring: RACHEL NERI DO : + + Interpretation Summary 1. This is a technically difficult study secondary to poor acoustic windows. 2. The left ventricular contractility is normal. Estimated ejection fraction is greater than 55% with no segmental wall motion abnormalities. Mild concentric LVH. Grade 1 diastolic dysfunction. 3. The right ventricular contractility appears to be grossly normal. 4. All cardiac chambers appear to be grossly normal in size. 5. Mild tricuspid regurgitation noted with elevated pulmonary systolic artery pressure of 42mmHg. 6. No obvious intracardiac shunts. 7. No obvious intracardiac masses nor thrombi noted. 8. No echocardiographic evidence of elevated right-sided filling pressures. Conclusion: Normal biventricular systolic function with mild pulmonary hypertension most likely due to diastolic dysfunction. Procedure: A two-dimensional transthoracic echocardiogram with color flow and Doppler was performed. The study quality was technically adequate. There is no prior echocardiogram noted for this patient. The heart rate ranged between 84-102 bpm during the study. Left Ventricle: The left ventricle is normal in size. The left ventricle is borderline dilated. The ejection fraction is estimated to be 55-60%. Right Ventricle: The right ventricle is not well visualized. Atria: The left atrial size is normal. Right atrial size is normal. The interatrial septum grossly appears intact with no obvious evidence for an atrial septal defect. Mitral Valve: The mitral valve is grossly normal. There is no mitral valve stenosis. There is trace mitral regurgitation. Aortic Valve: The aortic valve is trileaflet. The aortic valve is mildly calcified. There is no aortic valve stenosis. No aortic regurgitation is present. Tricuspid Valve: The tricuspid valve is not well visualized, but is grossly normal. There is no tricuspid stenosis. There is mild tricuspid regurgitation. The right ventricular systolic pressure is estimated to be at least 41.7 mmHg based on an estimated right atrial pressure of 8 mm Hg. Pulmonic Valve: The pulmonic valve is not well visualized. There is no pulmonic valvular stenosis. There is no pulmonic valvular regurgitation. Great Vessels: The aortic root is normal size. The ascending aorta is mildly enlarged. The IVC is dilated (diameter is greater than 2.1 cm) yet it collapses greater than 50% with a sniff. This suggests a right atrial pressure of 8 mm Hg. Pericardium/ Pleura There is no pericardial effusion. There is no pleural effusion. MMode/2D Measurements & Calculations LVIDd: 5.1 cm LVOT diam: 2.1 cm LVIDs: 4.0 cm Ao root diam: 3.3 cm FS: 22.0 % asc Aorta Diam: 3.7 cm IVSd: 1.2 cm LVPWd: 0.85 cm LV lagos. diameter/BSA (cm/m^2): 2.7 LV sys. diameter/BSA (cm/m^2): 2.1 LA A2 area: 19.5 cm2 RA long axis: 3.9 cm LA A4 area: 21.3 cm2 RA area: 8.9 cm2 LA length (vol): 5.8 cm RA vol: 17.3 ml LA vol: 60.5 ml RA : 8.9 ml/m2 LA vol index: 31.3 ml/m2 IVC diam: 2.2 cm Doppler Measurements & Calculations Ao V2 max: 224.8 cm/sec LVOT Max Jonatan: 115.5 cm/sec Ao V2 mean: 162.3 cm/sec LV V1 max P.3 mmHg Ao max P.2 mmHg LV V1 VTI: 25.0 cm Ao mean P.8 mmHg JUSTIN(I,D): 2.1 cm2 Ao V2 VTI: 42.0 cm JUSTIN(V,D): 1.8 cm2 sev ratio: 0.59 JUSTIN indexed to BSA (cm^2/m^2): 1.1 MV E max jonatan: 101.4 cm/sec TR max jonatan: 290.1 cm/sec MV A max jonatan: 86.1 cm/sec TR max P.7 mmHg MV E/A: 1.2 PA V2 max: 117.2 cm/sec Med Peak E' Jonatan: 8.7 cm/sec PA V2 mean: 82.8 cm/sec E/E' med: 11.7 PA mean P.1 mmHg Lat Peak E' Jonatan: 9.8 cm/sec PA pr(Accel): 41.3 mmHg E/E' lat: 10.3 E/e' average: 11.0 MV dec time: 0.19 sec SV([facility]): 88.1 ml Reading Physician:
[2023-12-08] MEDS: cefTRIAXone 2,000 MG in SODIUM CHLORIDE 0.9% 100 ML 200 MG IV (16:43)
[2023-12-08] MEDS: NYSTATIN POWDER 15GM 1 APPLIC TOP (17:41)
--- NOTE | 2023-12-08 19:47 | PC.NURSE ---
Patient with greater weakness to R side this a.m. and required a lynne transfer back to bed after chair. Patient has increased weakness to R leg and is unable to take a step with it, although before she was able to move it slowly and step. She is able to move the RLE but not lift it up off the bed, and she denies altered sensation to R extremities. R hand remains with drift down to bed, slightly to lift but not up to nose, weak finger superintendent menagerie. NIH score from 4 up to 6. At this time SBP 217/88 and MD notified, per orders continue to monitor and allow permissive htn to 220. She c/o nausea, and was given zofran. upon getting back to bed BP 206/77, she remain A&OX4, with clear speech and facial symmetry, w/o vision changes and stated nausea improved. She rested this afternoon, with improved BP this afternoon. Continuous monitoring
[2023-12-08] MEDS: ATORVASTATIN 20 MG TABLET 40 MG PO (21:18)
[2023-12-09] VITALS (7 sets, daily range): BP systolic 128–153; BP diastolic 51–57; PULSE 65–83; RESP 15–19; TEMP 35.7–36.7; O2SAT 91–97
[2023-12-09 06:49] LABS: Add Manual Diff / Slide Review NO; Basophils Absolute Auto 0 /uL (0-100); Basophils Percent Auto 0.2 % (0-2); Eosinophils Absolute Auto 100 /uL (0-450); Eosinophils Percent Auto 0.4 % (2-4); Hematocrit 29.9 % (36-46); Hemoglobin 9.6 g/dL (12.0-16.0); Lymphocytes Absolute Auto 2900 /uL (1100-4500); Lymphocytes Percent Auto 16.7 % (25-40); Mean Corpuscular HGB Conc 32.2 % (30-36); Mean Corpuscular Volume 105.6 fL (80-100); Monocytes Absolute Auto 1100 /uL (0-900); Monocytes Percent Auto 6.3 % (3-14); Neutrophils Absolute Auto 13000 /uL (1500-7000); Neutrophils Percent Auto 76.4 % (50-75); Platelet Count 207 X10^3/uL (150-400); Red Blood Cell Count 2.83 X10^6/uL (4.0-5.2); Red Cell Distribution Width 14.1 % (11.6-14.8); White Blood Cell Count 17.1 X10^3/uL (4.5-11.0)
[2023-12-09 07:00] LABS: Alanine Aminotransferase 16 IU/L (<35); Albumin 3.1 g/dL (3.5-5.0); Albumin Globulin Ratio 1.1 (1.0-2.8); Alkaline Phosphatase 77 U/L (38-126); Aspartate Aminotransferase 27 IU/L (14-36); BUN Creatinine Ratio 17.8 (6-22); Bilirubin Total 0.3 mg/dL (0.2-1.3); Blood Urea Nitrogen 26 mg/dL (7-17); Calcium 7.9 mg/dL (8.4-10.2); Carbon Dioxide 13 mmol/L (22-32); Chloride 117 mmol/L (98-107); Estimated Glomerular Filt Rate 36 mL/min (>60); Globulin 2.8 g/dL (1.7-4.1); Glucose 95 mg/dL (80-110); HEMOLYSIS < 15 (0-50); Magnesium 1.9 mg/dL (1.6-2.3); Potassium 4.4 mmol/L (3.4-5.1); Sodium 137 mmol/L (137-145); Total Protein 5.9 g/dL (6.3-8.2)
--- NOTE | 2023-12-09 07:54 | PM.PN.1 ---
Subjective Subjective Interval history: She was feeling better today. Her right arm is moving up much better and her right leg feels stronger. No fevers. Her weakness is improving. Exam Vital Signs (past 8 hours): - 12/09/23 00:00 12/09/23 05:30 Temperature 97.4 F L 97.5 F L Pulse Rate 83 73 Respiratory Rate 19 19 Blood Pressure 140/51 L 147/56 H Pulse Oximetry 91 93 Oxygen Flow Rate 0 0 Oxygen Delivery Method Room Air Oxygen Flow Rate 0 Narrative Exam Narrative: NAD, alert and oriented. Fluent speech. Lungs are clear, normal rate and effort. Heart is regular, no murmur gallop or rub. Abdomen is soft, non distended. Extremities are free of edema. She can lift both arms above her head, the right is slightly lower than the left. She can lift both legs up in a straight leg raise, the right falls after about 3 seconds the left after about 5. Objective Labs 12/09/23 06:10 12/09/23 06:10 Labs: Laboratory Results - last 24 hr 12/09/23 06:10 WBC 17.1 H RBC 2.83 L Hgb 9.6 L Hct 29.9 L MCV 105.6 H MCH 34.0 MCHC 32.2 RDW 14.1 Plt Count 207 Neut % (Auto) 76.4 H Lymph % (Auto) 16.7 L [place] % (Auto) 6.3 Eos % (Auto) 0.4 L Baso % (Auto) 0.2 Neut # (Auto) 96516 H Lymph # (Auto) 2900 [place] # (Auto) 1100 H Eos # (Auto) 100 Baso # (Auto) 0 Sodium 137 Potassium 4.4 Chloride 117 H Carbon Dioxide 13 L BUN 26 H Creatinine 1.46 H Estimated GFR 36 L BUN/Creatinine Ratio 17.8 Glucose 95 Calcium 7.9 L Magnesium 1.9 Total Bilirubin 0.3 AST 27 ALT 16 Alkaline Phosphatase 77 Total Protein 5.9 L Albumin 3.1 L Globulin 2.8 Albumin/Globulin Ratio 1.1 [facility] Medical History Carotid artery disease Non Hodgkin's lymphoma Asthma Diabetes Surgical History History of back surgery H/O tubal ligation History of carpal tunnel surgery History of knee replacement Family History Mother Stroke Father Colon cancer Social History marital status: details: ALSO LIVES WITH GRANDDAUGHTER AND SON-IN-LAW household members: spouse and family lives independently: Yes occupational status: previously employed Smoking Status: Former smoker alcohol intake: current substance use type: does not use Assessment & Plan Assessment & Plan narrative: 1. CVA, present on admission and active. Left frontoparietal. - with presenting NIHSS 2, now improved to 1, give plavix load 300 mg now, continue asa and plavix x21 days unless evidence of afib - PT/OT/ATOMIZER ASSEMBLER evaluations ordered - MR confirming L frontal infarct - NIHSS qshift - allow permissive HTN 2. Pyelonephritis and bacteremia (pansensitive E. Coli), present on admission and active. - CT abdomen negative for obstructing stone - does have recent urinary frequency - treat with ceftriaxone x3 days. Follow up cultures. 3. Leukocytosis, present on admission and active. - recent lymph node on outside CT no longer present on current imaging today but WBC at 37K with smudge cells is suspicious, has outpatient follow up with Onc arranged and leukocytosis may be due to acute cystitis. 4. HTN, present on admission and active. - continue home antihypertensives 5. Diabetes, type 2, on insulin, present on admission and active. - continue lantus 8 U AM, 4 U TID AC, and low dose sliding scale. - A1c ordered 6. Metabolic acidosis, present on admission and active. - possibly due to JUAN, continue IV fluids for now, unclear etiology at this time for her NAGMA. 7. JUAN, present on admission and active. - improved with IV fluids, will continue for now 8. Troponin elevation, present on admission and active. - will check echo as above. Trop 0.8 improved to 0.7 on repeat. No EKG findings of ischemia or chest pain. 9. COVID 19 pneumonia, likely resolved. - asymptomatic and likely resolved symptoms from 2 weeks ago, but patient never tested as outpatient. Continue isolation precautions. PLAN: -continue medical therapy including dual antiplatelet therapy and statin. -continue evaluation with therapies including PT, OT, and speech therapy. -monitor COVID, she was not hypoxic in his had a cough for 2 weeks. This is stable. Continue isolation. -continue IV antibiotics for pyelonephritis and bacteremia. She was responding to ceftriaxone, we will continue. She has E coli which is pansensitive. We will continue ceftriaxone until tomorrow and then switch to oral fluoroquinolones for a total course of 14 days given bacteremia. -discharge planning, pending referral to inpatient rehab. Code: Full, surrogate is patient's granddaughter ([facility] bilingual patient support caseworker) DVT: Lovenox daily Time-Based Coding :: 25 min spent with patient and on the chart (including review of chart, obtaining history, exam, reviewing outside data, placing orders, documenting exam and treatment plan, and counseling patient) on 12/08.
[2023-12-09] MEDS: INSULIN LISPRO 100 UNIT/ML 3ML VIAL SUBCUT ×3 (08:38→17:27)
[2023-12-09] MEDS: INSULIN GLARGINE 100 UNIT/ML 3ML PEN 8 UNIT SUBCUT (08:38)
[2023-12-09] MEDS: ASPIRIN EC 81 MG TABLET PO (09:50)
[2023-12-09] MEDS: CLOPIDOGREL 75 MG TABLET PO (09:50)
[2023-12-09] MEDS: ENOXAPARIN 40 MG/0.4 ML SYRINGE SUBCUT (09:50)
--- NOTE | 2023-12-09 11:38 | PT.IPTN ---
Current Diagnoses Cerebral infarction, unspecified (12/07/23) Physical Therapy Treatment Note M2 PT-IP Current Condition Start: 12/08/23 11:15 Freq: NEEDED Status: Active Protocol: Document 12/08/23 11:02 MB (Rec: 12/08/23 11:55 MB [id number]) Physical Therapy Current Condition Current Condition Evaluation Date 12/08/23 Treatment Diagnosis COVID, stroke, VT M3 PT-IP Subjective Start: 12/08/23 11:15 Freq: NEEDED Status: Active Protocol: Document 12/09/23 12:09 TS (Rec: 12/09/23 12:24 TS [id number]) Subjective Physical Therapy Visit Type Type Treatment Note Visit Start Time 11:38 Visit Stop Time 12:08 Notes OT present Number of HEALTHCARE INSURANCE SALES AGENT Visits 1 Physical Therapy Visit Comments Patient Comments Pt found resting in bed, is agreeable to PT. M4 PT-IP Mobility and Gait Start: 12/08/23 11:15 Freq: NEEDED Status: Active Protocol: Document 12/09/23 12:09 TS (Rec: 12/09/23 12:24 TS [id number]) PT-Bed Mobility Assessment Supine to Sit Supine to Sit Minimal Assistance,2 Person Assistance,Head of Bed Elevated Scooting Scooting to Edge of Bed Minimal Assistance PT-Transfer Assessment Sit to and From Stand Sit to and from Stand Maximum Assistance,2 Person Assistance,Use of Upper Extremities Equipment Transfer Assistive Device Gait Belt,Front Wheeled Walker Orthotic/Prosthetic Devices or Brace: No Transfers Transfer Destination Chair,Bedside Commode Transfer Technique Stand Step Pivot Transfer Ability Level of Assist Maximum Assistance,2 Person Assistance,Use of Upper Extremities Comments Mobility Comments Supine to sit SBA with HOB elevated Spencer x2 for RLE and RUE, required cues for pushing through RUE. 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 Stand step pivot to commode MaxA x2 with FWW, pt is slow to step with some buckling on R side. STS from commode MaxA x2 with FWW. Stand step pivot to chair MaxA x2, she has some posterior leaning, less buckling to chair. She was left in chair, all needs met. Gait Assessment Comments Gait Comments Stand step pivot x2, shuffling feet. PT-Balance Assessment Sitting Balance and Reactions Static Sitting Balance Ability Good Dynamic Sitting Balance Ability Fair Standing Balance and Reactions Static Standing Balance Ability Poor Dynamic Standing Balance Ability Poor Device Used RW M5 PT-IP Objective Assessments Start: 12/08/23 11:15 Freq: NEEDED Status: Active Protocol: Document 12/08/23 11:02 MB (Rec: 12/08/23 11:55 MB [id number]) Orientation Orientation/Cognition Level of Alertness Alert Orientation Name,Age,Birthday,Month,Date, Year,Day of Week,Place, Situation Language Function Ability No Deficits Noted Safety Awareness Decreased Safety Awareness Memory Description No Deficits Noted Gross Range of Motion Upper Extremity ROM Assessment Right Impaired Impairments Defer to OT Lower Extremity ROM Assessment Right Impaired Impairments Pt has trouble tolerating ROM and MMT and her right LE is functionally weaker than the left with great toe extension and ankle DF grossly 75% normal range with legs supported in recliner Strength Lower Extremity Strength Assessment Bilaterally Impaired Comments Strength Comments Pt does not tolerate MMT well and c/o pain with PT's hand placement and PT attempts to alter x3 but pt still cannot tolerate. Right ankle and knee and hip are weaker than the left and pt also presents with left knee weakness with attempted testing Coordination Assessment Gross Coordination Gross Coordination Impaired Assessment Coordination Comments Gross motor coordination abnormal with right extremity attempted use for transfer with PT Sensation Assessment Sensation Gross Sensation Right LE Impaired Sensation Description Numbness Muscle Tone Muscle Tone WNL Yes Other Assessments Other Other Assessments PF tone may be starting in RLE , difficult to determine on assessment given pt response M6 PT-IP Treatment Start: 12/08/23 11:15 Freq: NEEDED Status: Active Protocol: Document 12/09/23 12:09 TS (Rec: 12/09/23 12:24 TS [id number]) Physical Therapy Treatment Education Education Provided Safety M7 PT-IP Assessment and Plan Start: 12/08/23 11:15 Freq: NEEDED Status: Active Protocol: Document 12/09/23 12:09 TS (Rec: 12/09/23 12:24 TS [id number]) PT Summary Assessment and Plan Potential Rehabilitation Potential Good Summary Impairments Pain,ROM,Strength,Balance, Coordination,Sensation,Tone, Bed Mobility,Transfers,Gait, Activity Tolerance Progress Towards Goals Slow Progress - Other Assessment Summary Pat is making some progress with her mobility but remains limited. She is Spencer x2 for supine to sit and cues for use of RUE. She performed stand step pivot x2 with FWW. She has some buckling of RLE and and a posterior lean during transfers. PT continues to recommend acute rehab. Goals Transfer Goal Contact Guard Assistance Gait Goal Contact Guard Assistance Gait Distance 50 Other Goals Goal for LRAD for transfers and gait and these may include hemiwalker or right plaform walker. If pt advances, progress to stair training with LRAD and no more than min A to start training towards long-term goal of home. Days to Meet Goals 5 Frequency of Treatment Frequency Of Treatment Once a Day Treatment Plan Physical Therapy Treatment Plan Bed Mobility Training,Transfer Training,Gait Training, Therapeutic Exercise,Balance Retraining,Discharge Planning, Hot or Cold Pack,Neuromuscular Re-ed,Coordination Retraining ,Manual Therapy Other Recommendations and Next Treatment Progress transfers Focus Precautions Other Precautions COVID Weight Bearing Status Weight Bearing Status Weight Bear as Tolerated Recommendations To Nursing Amount of Assist Needed Mechanical Lift Discharge Recommendations PT Discharge Recommendations Acute Rehab Transportation Needs at Discharge Wheelchair/Cabulance
--- NOTE | 2023-12-09 12:11 | OT.IP.TRT ---
Current Diagnoses Cerebral infarction, unspecified (12/07/23) Occupational Therapy Treatment Note M2 OT-IP Current Condition Start: 12/08/23 13:16 Freq: Status: Active Protocol: Document 12/08/23 13:17 CGR (Rec: 12/08/23 13:35 CGR [id number]) Occupational Therapy Current Condition Current Condition Evaluation Date 12/08/23 Treatment Diagnosis R sided weakness, MRI shows acute L frontal lobe infarct Diagnosis Onset Date 12/07/23 M3 OT- IP Subjective and Pain Start: 12/08/23 13:16 Freq: Status: Active Protocol: Document 12/09/23 12:11 [facility] (Rec: 12/09/23 12:31 [facility] [id number]) OT- Subjective Occupational Therapy Visit Type Type Treatment Note Visit Start Time 11:33 Visit Stop Time 12:11 Occupational Therapy Visit Comments Patient Comments Pt agreed to get up and try to use the BSC. Patient/Caregiver Goals To go to acute rehab. 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 OT ADL-Grooming General Evaluation Grooming Ability Maximum Assistance Areas Needing Assistance Combing/Brushing Hair Comments OT Grooming Comments MAXA to help hold her right hand onto the brush so able to brush her hand. Pt also needing assist to help effectively move the brush to be able to brush her hair. OT ADL-Oral Care Comments Oral Care Comments Pt states did prior. OT ADL-Dressing General Eval Lower Body Dressing Ability Maximum Assistance Comments OT Dressing Comments Attempted to have pt with hand over hand to hold the brief into her right hand , but at this time not able to coordinate her movements and bend forwards enough and needing assist to grey the brief over her feet. OT ADL-Toileting General Evaluation Toileting Ability Maximum Assistance Areas Needing Assistance Manage Clothing Comments OT Toileting Comments Pt able to use her left hand to wipe as unable to grasp the wet one wipe in her right hand. Able to assist pt to hold the armrest of the BSC with right hand so able to lift up a little to be able to reach under to wipe more appropriately. Pt needing assist to stand MAX AX 1 and another to help pull up her brief over her hips. OT ADL-Bathing Comments OT Bathing Comments Sponge bath more apprpriate at this time. M5 OT- IP IADL's Start: 12/08/23 13:16 Freq: Status: Active Protocol: Document 12/08/23 13:17 CGR (Rec: 12/08/23 13:35 CGR [id number]) OT-Instrumental Activities of Daily Living Deficits IADL Deficits Identified No Deficits Home Safety Awareness Awareness of Need for Assistance at Home Good Awareness Ability to Problem Solve Emergency Able to Problem Solve Situations Medication Management Medication Management No Deficits Identified Money Management Money Management No Deficits Identified Meal Preparation Meal Preparation Caregiver Provides Assist Transcript Evaluator Transcript Evaluator Caregiver Provides Assist Driving Driving Concerns Identified Regarding Safety Driving Comments 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 M6 OT- IP Functional Cognition Start: 12/08/23 13:16 Freq: Status: Active Protocol: Document 12/08/23 13:17 CGR (Rec: 12/08/23 13:35 CGR [id number]) Cognitive Factors Limiting Selfcare Function Cognitive Ability Level of Alertness Alert Patient Orientation Name,Age,Birthday,Month,Date, Year,Day of Week,Place, Situation Attention Span Ability Capable of Focused Attention, Capable of Sustained Attention Ability to Follow Commands Able to Follow One Step Commands with Increased Time, Able to Follow One Step Commands with Repetition Memory Description No Deficits Noted OT- Vision and Hearing OT- Hearing Assessment OT- Hearing Assessment Hearing Impaired,Use of Hearing Aids OT- Vision Assessment Visual Acuity Glasses For Reading Visual Attentiveness WFL Occular Pursuits WFL Visual Convergence WFL M7 OT- IP Mobility and Balance Start: 12/08/23 13:16 Freq: Status: Active Protocol: Document 12/09/23 12:11 [facility] (Rec: 12/09/23 12:31 [facility] [id number]) OT- Bed Mobility Assessment Supine to Sit Supine to Sit Assist Minimal Assistance,Moderate Assistance,2 Person Assistance OT-Transfer Assessment Sit to and From Stand Sit to and from Stand Maximum Assistance,2 Person Assistance Transfers Transfer Ability Maximum Assistance,2 Person Assistance Technique Transfer Destination Bed,Bedside Commode Transfer Technique Stand Step Pivot Devices Transfer Assistive Devices Gait Belt,Front Wheeled Walker Comments Mobility Comments MIN/MODA x2 for bed mobility assist to help use the RUE to weight bear through so able to assist to scoot forwards. MAX AX 2 to stand assist to RUE control to hold onto the FWW and to help stabilize and control so able to push through her RUE to help during transfers. Pt also needing MAX AX 1-2 for balance and to guide the FWW. At this time best for nursing to use the lynne lift or call therapy for assistance. OT- Balance Assessment Sitting Balance and Reactions Static Sitting Balance Ability Good Dynamic Sitting Balance Ability Fair Standing Balance and Reactions Static Standing Balance Ability Poor Dynamic Standing Balance Ability Poor M8 OT- IP Objective Assessments Start: 12/08/23 13:16 Freq: Status: Active Protocol: Document 12/09/23 12:11 [facility] (Rec: 12/09/23 12:31 [facility] [id number]) OT Strength Comments Strength Comments L grossly 4/5 (shld 4-/5) R shld 3+/5, arm 4-/5, hand 3- /5 all delayed Also to show pt to do arom on the try table of forwards extension and move towards external rotation on the table to help strengthen her RUE. Also encouraged pt to do finger extension and abduction with her fingers. OT Sensation Assessment Comments Summary Comments Pt is neglectful of her right arm and educated to be sure that it is postioned up on a pillow and in site. Edema Edema Present Edema Comments Pt noted mod swelling throughout right arm. Able to show pt how to do gentle stretching to internal rotators and able to do gentle carpals mobs for right wrist. M9 OT- IP Assessment and Plan Start: 12/08/23 13:16 Freq: Status: Active Protocol: Document 12/09/23 12:11 [facility] (Rec: 12/09/23 12:31 [facility] [id number]) OT Summary Assessment and Plan Potential Rehabilitation Potential Excellent Analytic Complexity at Evaluation High Summary OT Impairments Strength,Balance,Coordination, Sensation,Functional Mobility, Self-Feeding,Grooming,Dressing ,Toileting,Bathing,Toilet Transfers,Shower Transfers, Activity Tolerance Progress Towards Goals Progressing Toward Goals Assessment Summary Pt able to transfer to the [facility] with two person assist with FWW and actively trying to use her RUE for all ADL and mobility needs. Pt to go to skilled rehab when medically stable. Goals Self-Feeding Goal Independent Grooming Goal Independent Dressing Goal Independent Toileting Goal Independent Bathing Goal Independent Toilet Transfer Goal Independent Shower Transfer Goal Independent Days to Meet Goals 25 Frequency of Treatment Frequency Of Treatment Once a Day Treatment Plan OT Treatment Plan ADL Training,Functional Mobility,Neuromuscular Re- education,Therapeutic Exercises,Patient/Family Education,Discharge Planning Other Treatment Recommendations and Next BSC transfer, ADLs, UE therex Treatment Focus Discharge Recommendations OT Discharge Recommendations Acute Rehab Transportation Needs at Discharge Wheelchair/Cabulance
--- NOTE | 2023-12-09 15:26 | CM.DPC ---
DCP Cont. Reviewed EMR and team rounds for status updates. Received call from [facility], they decline pt. Sent referral to [facility], they also decline due to her covid+ status. Will attempt again tomorrow for SNF rehab, however she may end up discharging back home.
[2023-12-09] MEDS: cefTRIAXone 2,000 MG in SODIUM CHLORIDE 0.9% 100 ML 200 MG IV (15:41)
--- NOTE | 2023-12-09 18:55 | PC.NURSE ---
Notified by PLASTICS TECHNICIAN of 2 runs of nonsustained VTACH. Patient wiping herself on BSC with assistance at this time, denies feeling any symptoms. Assisted to bed, BP 168/86 with HR 70's. PLASTICS TECHNICIAN notified Dr. Palacios, states he will start beta blockers tonight.
[2023-12-09] MEDS: ATORVASTATIN 20 MG TABLET 40 MG PO (20:58)
[2023-12-09] MEDS: METOPROLOL IR 25 MG TABLET 12.5 MG PO (20:58)
[2023-12-10] VITALS (12 sets, daily range): BP systolic 125–159; BP diastolic 49–64; PULSE 55–79; RESP 16–18; TEMP 35.1–36.1; O2SAT 92–98
[2023-12-10 06:34] LABS: Add Manual Diff / Slide Review NO; Basophils Absolute Auto 0 /uL (0-100); Basophils Percent Auto 0.2 % (0-2); Eosinophils Absolute Auto 200 /uL (0-450); Eosinophils Percent Auto 2.2 % (2-4); Hematocrit 30.2 % (36-46); Hemoglobin 9.9 g/dL (12.0-16.0); Lymphocytes Absolute Auto 2300 /uL (1100-4500); Lymphocytes Percent Auto 20.8 % (25-40); Mean Corpuscular HGB Conc 32.6 % (30-36); Mean Corpuscular Hemoglobin 34.3 PG (26-34); Mean Corpuscular Volume 105.1 fL (80-100); Monocytes Absolute Auto 1200 /uL (0-900); Monocytes Percent Auto 10.7 % (3-14); Neutrophils Absolute Auto 7300 /uL (1500-7000); Neutrophils Percent Auto 66.1 % (50-75); Platelet Count 188 X10^3/uL (150-400); Red Blood Cell Count 2.87 X10^6/uL (4.0-5.2); White Blood Cell Count 11.1 X10^3/uL (4.5-11.0)
[2023-12-10 06:46] LABS: Alanine Aminotransferase 20 IU/L (<35); Albumin 3.2 g/dL (3.5-5.0); Albumin Globulin Ratio 1.3 (1.0-2.8); Alkaline Phosphatase 75 U/L (38-126); Aspartate Aminotransferase 34 IU/L (14-36); BUN Creatinine Ratio 18.5 (6-22); Bilirubin Total 0.3 mg/dL (0.2-1.3); Blood Urea Nitrogen 28 mg/dL (7-17); Calcium 7.7 mg/dL (8.4-10.2); Carbon Dioxide 14 mmol/L (22-32); Chloride 115 mmol/L (98-107); Estimated Glomerular Filt Rate 35 mL/min (>60); Globulin 2.5 g/dL (1.7-4.1); Glucose 113 mg/dL (80-110); HEMOLYSIS < 15 (0-50); Magnesium 1.9 mg/dL (1.6-2.3); Potassium 4.3 mmol/L (3.4-5.1); Sodium 138 mmol/L (137-145); Total Protein 5.7 g/dL (6.3-8.2)
--- NOTE | 2023-12-10 08:36 | PM.PN.1 ---
Subjective Subjective Interval history: Patient was doing better. Her right arm is improving and she was got good movement at the shoulder and the elbow. She can also extend the hand more and has a stronger organic extractions technician today. Her right leg is moving very well. No chest pain, cough or shortness a breath. Exam Vital Signs (past 8 hours): - 12/10/23 01:00 12/10/23 04:00 12/10/23 05:00 Temperature 96.1 F L Pulse Rate 79 Respiratory Rate 16 Blood Pressure 159/57 H Pulse Oximetry 98 92 97 Oxygen Delivery Method Room Air Room Air Oxygen Flow Rate 0 Oxygen Delivery Method Room Air Oxygen Flow Rate 0 Narrative Exam Narrative: NAD, alert and oriented. Fluent speech. Lungs are clear, normal rate and effort. Heart is regular, no murmur gallop or rub. Abdomen is soft, non distended. Extremities are free of edema. Can lift arm easily at the shoulder and flex at the elbow fairly well. Can extend and flex at the wrist better today. The extension of fingers is somewhat limited. He is able to lift the right leg up off the gurney easily. Objective Labs 12/10/23 06:08 12/10/23 06:08 Labs: Laboratory Results - last 24 hr 12/07/23 12/10/23 10:38 06:08 WBC 11.1 H RBC 2.87 L Hgb 9.9 L Hct 30.2 L MCV 105.1 H MCH 34.3 H MCHC 32.6 RDW 14.0 Plt Count 188 Neut % (Auto) 66.1 Lymph % (Auto) 20.8 L Dickson % (Auto) 10.7 Eos % (Auto) 2.2 Baso % (Auto) 0.2 Neut # (Auto) 7300 H Lymph # (Auto) 2300 [place]icks[place] # (Auto) 1200 H Eos # (Auto) 200 Baso # (Auto) 0 Smear Path Review Sodium 138 Potassium 4.3 Chloride 115 H Carbon Dioxide 14 L BUN 28 H Creatinine 1.51 H Estimated GFR 35 L BUN/Creatinine Ratio 18.5 Glucose 113 H Calcium 7.7 L Magnesium 1.9 Total Bilirubin 0.3 AST 34 ALT 20 Alkaline Phosphatase 75 Total Protein 5.7 L Albumin 3.2 L Globulin 2.5 Albumin/Globulin Ratio 1.3 PFSH Medical History Carotid artery disease Non Hodgkin's lymphoma Asthma Diabetes Surgical History History of back surgery H/O tubal ligation History of carpal tunnel surgery History of knee replacement Family History Mother Stroke Father Colon cancer Social History marital status: details: ALSO LIVES WITH GRANDDAUGHTER AND SON-IN-LAW household members: spouse and family lives independently: Yes occupational status: previously employed Smoking Status: Former smoker alcohol intake: current substance use type: does not use Assessment & Plan Assessment & Plan narrative: 1. CVA, present on admission and active. Left frontoparietal. - with presenting NIHSS 2, now improved to 1, give plavix load 300 mg now, continue asa and plavix x21 days unless evidence of afib - PT/OT/REGULATORY SCIENTIST evaluations ordered - MR confirming L frontal infarct 2. Pyelonephritis and bacteremia (pansensitive E. Coli), present on admission and active. - CT abdomen negative for obstructing stone - does have recent urinary frequency - treat with ceftriaxone x3 days. Follow up cultures. 3. Leukocytosis, present on admission and active. - recent lymph node on outside CT no longer present on current imaging today but WBC at 37K with smudge cells is suspicious, has outpatient follow up with Onc arranged and leukocytosis may be due to acute cystitis. 4. HTN, present on admission and active. - continue home antihypertensives 5. Diabetes, type 2, on insulin, present on admission and active. - continue lantus 8 U AM, 4 U TID AC, and low dose sliding scale. - A1c ordered 6. Metabolic acidosis, present on admission and active. - possibly due to JUAN, continue IV fluids for now, unclear etiology at this time for her NAGMA. 7. JUAN, present on admission and improved. - improved with IV fluids, will continue for now 8. Troponin elevation, present on admission and active. - will check echo as above. Trop 0.8 improved to 0.7 on repeat. No EKG findings of ischemia or chest pain. 9. COVID 19 pneumonia, likely resolved. - asymptomatic and likely resolved symptoms from 2 weeks ago, but patient never tested as outpatient. Continue isolation precautions. PLAN: -continue dual antiplatelet therapy, statin. We are looking for a discharge for ongoing rehabilitation. She will likely end up rehabilitating at a [facility] facility. -COVID isolation. -fourteen day course of antibiotics we will transitioned to oral antibiotics over the next day or so. -continue PT and OT efforts. -monitor renal function. -continue current diabetic management, her blood sugars are well-controlled. CALVIN, Dispo: [facility] facility in the next 1-2 days. Time-Based Coding :: 25 min spent with patient and on the chart (including review of chart, obtaining history, exam, reviewing outside data, placing orders, documenting exam and treatment plan, and counseling patient) on 12/09.
[2023-12-10] MEDS: INSULIN GLARGINE 100 UNIT/ML 3ML PEN 8 UNIT SUBCUT (09:55)
[2023-12-10] MEDS: INSULIN LISPRO 100 UNIT/ML 3ML VIAL SUBCUT ×4 (09:55→17:09)
[2023-12-10] MEDS: METOPROLOL IR 25 MG TABLET 12.5 MG PO ×2 (09:58→20:27)
[2023-12-10] MEDS: CLOPIDOGREL 75 MG TABLET PO (09:58)
[2023-12-10] MEDS: ASPIRIN EC 81 MG TABLET PO (09:58)
[2023-12-10] MEDS: ENOXAPARIN 40 MG/0.4 ML SYRINGE SUBCUT (09:59)
[2023-12-10] MEDS: ACETAMINOPHEN 325 MG TABLET 650 MG PO ×3 (10:00→23:31)
--- NOTE | 2023-12-10 11:30 | PT.IPTN ---
Current Diagnoses Cerebral infarction, unspecified (12/07/23) Physical Therapy Treatment Note M2 PT-IP Current Condition Start: 12/08/23 11:15 Freq: NEEDED Status: Active Protocol: Document 12/08/23 11:02 MB (Rec: 12/08/23 11:55 MB [id number]) Physical Therapy Current Condition Current Condition Evaluation Date 12/08/23 Treatment Diagnosis COVID, stroke, [place] M3 PT-IP Subjective Start: 12/08/23 11:15 Freq: NEEDED Status: Active Protocol: Document 12/10/23 11:59 TS (Rec: 12/10/23 12:09 TS [id number]) Subjective Physical Therapy Visit Type Type Treatment Note Visit Start Time 11:30 Visit Stop Time 11:55 Number of ICT SUPPORT AND TEST ENGINEERS Visits 2 Physical Therapy Visit Comments Patient Comments Pt found resting in bed, is agreeable to PT. Therapy Pain Assessment Pain When Pain Assessed At Rest Pain Present Pain Present Pain Reported M4 PT-IP Mobility and Gait Start: 12/08/23 11:15 Freq: NEEDED Status: Active Protocol: Document 12/10/23 11:59 TS (Rec: 12/10/23 12:09 TS [id number]) PT-Bed Mobility Assessment Supine to Sit Supine to Sit Minimal Assistance,1 Person Assistance,Head of Bed Elevated Scooting Scooting to Edge of Bed Minimal Assistance PT-Transfer Assessment Sit to and From Stand Sit to and from Stand Maximum Assistance,1 Person Assistance Equipment Transfer Assistive Device Gait Belt,Front Wheeled Walker Orthotic/Prosthetic Devices or Brace: No Transfers Transfer Destination Chair Transfer Technique Stand Step Pivot Transfer Ability Level of Assist Maximum Assistance,1 Person Assistance Comments Mobility Comments Supine to sit Spencer, pt required cues for RUE assist. STS with FWW MaxA, pt has a posterior lean, improves balance with cues. Stand step pivot to chair with FWW MaxA. Pt was left in chair, all needs met. Gait Assessment Gait Gait Assistance Required: Maximum Assistance,1 Person Assist Distance (Feet) 2 Assistive Devices Assistive Device Gait Belt,Front Wheeled Walker Orthotic/Prosthetic Devices or Brace: No Gait Deviations General Gait Pattern Decreased Stride Length, Decreased Feet Clearance Factors Limiting Gait Function Factors Limiting Gait Function Decreased Activity Tolerance, Decreased Strength, Incoordination,Poor Balance, Poor Safety Awareness Comments Gait Comments Stand step pivot to chair. PT-Balance Assessment Sitting Balance and Reactions Static Sitting Balance Ability Good Dynamic Sitting Balance Ability Fair Standing Balance and Reactions Static Standing Balance Ability Poor Dynamic Standing Balance Ability Poor Device Used RW M5 PT-IP Objective Assessments Start: 12/08/23 11:15 Freq: NEEDED Status: Active Protocol: Document 12/08/23 11:02 MB (Rec: 12/08/23 11:55 MB [id number]) Orientation Orientation/Cognition Level of Alertness Alert Orientation Name,Age,Birthday,Month,Date, Year,Day of Week,Place, Situation Language Function Ability No Deficits Noted Safety Awareness Decreased Safety Awareness Memory Description No Deficits Noted Gross Range of Motion Upper Extremity ROM Assessment Right Impaired Impairments Defer to OT Lower Extremity ROM Assessment Right Impaired Impairments Pt has trouble tolerating ROM and MMT and her right LE is functionally weaker than the left with great toe extension and ankle DF grossly 75% normal range with legs supported in recliner Strength Lower Extremity Strength Assessment Bilaterally Impaired Comments Strength Comments Pt does not tolerate MMT well and c/o pain with PT's hand placement and PT attempts to alter x3 but pt still cannot tolerate. Right ankle and knee and hip are weaker than the left and pt also presents with left knee weakness with attempted testing Coordination Assessment Gross Coordination Gross Coordination Impaired Assessment Coordination Comments Gross motor coordination abnormal with right extremity attempted use for transfer with PT Sensation Assessment Sensation Gross Sensation Right LE Impaired Sensation Description Numbness Muscle Tone Muscle Tone WNL Yes Other Assessments Other Other Assessments PF tone may be starting in RLE , difficult to determine on assessment given pt response M6 PT-IP Treatment Start: 12/08/23 11:15 Freq: NEEDED Status: Active Protocol: Document 12/10/23 11:59 TS (Rec: 12/10/23 12:09 [id number]) Physical Therapy Treatment Education Education Provided Safety M7 PT-IP Assessment and Plan Start: 12/08/23 11:15 Freq: NEEDED Status: Active Protocol: Document 12/10/23 11:59 TS (Rec: 12/10/23 12:09 [id number]) PT Summary Assessment and Plan Potential Rehabilitation Potential Good Summary Impairments Pain,ROM,Strength,Balance, Coordination,Sensation,Tone, Bed Mobility,Transfers,Gait, Activity Tolerance Progress Towards Goals Slow Progress - Other Assessment Summary Pat made some progress with her mobility but continues to be limited. She continues to have R sided neglect especially in R hand/arm. She improves the use of her hand with cues. She requires MaxA x1 for STS and transfer to chair. She demonstrates increased feet clearance and step length on R side this session. Her balance is poor in standing but improves with cues. PT recommends acute rehab. Goals Transfer Goal Contact Guard Assistance Gait Goal Contact Guard Assistance Gait Distance 50 Other Goals Goal for LRAD for transfers and gait and these may include hemiwalker or right plaform walker. If pt advances, progress to stair training with LRAD and no more than min A to start training towards long-term goal of home. Days to Meet Goals 5 Frequency of Treatment Frequency Of Treatment Once a Day Treatment Plan Physical Therapy Treatment Plan Bed Mobility Training,Transfer Training,Gait Training, Therapeutic Exercise,Balance Retraining,Discharge Planning, Hot or Cold Pack,Neuromuscular Re-ed,Coordination Retraining ,Manual Therapy Other Recommendations and Next Treatment Progress transfers Focus Precautions Other Precautions COVID Weight Bearing Status Weight Bearing Status Weight Bear as Tolerated Recommendations To Nursing Amount of Assist Needed 2 Person Assist Discharge Recommendations PT Discharge Recommendations Acute Rehab Transportation Needs at Discharge Wheelchair/Cabulance
[2023-12-10] MEDS: cefTRIAXone 2,000 MG in SODIUM CHLORIDE 0.9% 100 ML 200 MG IV (14:53)
--- NOTE | 2023-12-10 17:48 | OT.IP.TRT ---
Current Diagnoses Cerebral infarction, unspecified (12/07/23) Occupational Therapy Treatment Note M2 OT-IP Current Condition Start: 12/08/23 13:16 Freq: Status: Active Protocol: Document 12/08/23 13:17 CGR (Rec: 12/08/23 13:35 CGR [id number]) Occupational Therapy Current Condition Current Condition Evaluation Date 12/08/23 Treatment Diagnosis R sided weakness, MRI shows acute L frontal lobe infarct Diagnosis Onset Date 12/07/23 M3 OT- IP Subjective and Pain Start: 12/08/23 13:16 Freq: Status: Active Protocol: Document 12/10/23 17:34 [facility] (Rec: 12/10/23 17:48 [facility] [id number]) OT- Subjective Occupational Therapy Visit Type Type Treatment Note Visit Start Time 16:32 Visit Stop Time 17:13 Occupational Therapy Visit Comments Patient Comments Pt agreed to get up. Patient/Caregiver Goals To get better. OT Pain Assessment Pain When Pain Assessed At Rest Pain Present Pain Present Pain Reported Location Left Hip Intensity 4 Scale Used Numeric (0 - 10) M4 OT- IP ADL's Start: 12/08/23 13:16 Freq: Status: Active Protocol: Document 12/10/23 17:34 [facility] (Rec: 12/10/23 17:48 [facility] [id number]) OT [id number] Comments OT Self-Feeding Comments Pt states initially tries to use her right hand to assist and then uses her left hand. OT ADL-Grooming Comments OT Grooming Comments Not performed. OT ADL-Dressing General Eval Lower Body Dressing Ability Maximum Assistance Comments OT Dressing Comments Assist for socks. OT ADL-Toileting Comments OT Toileting Comments Pt not having to go at this time. Pt move much better and best for her to use the BSC for toieleting needs and now able to do so with one person assist. Mainly asisst to help hold her rigth hand on the FWw to help guide the FWW. In addition assist for her balance. OT ADL-Bathing Comments OT Bathing Comments To try showering soon. M5 OT- IP IADL's Start: 12/08/23 13:16 Freq: Status: Active Protocol: Document 12/08/23 13:17 CGR (Rec: 12/08/23 13:35 CGR [id number]) OT-Instrumental Activities of Daily Living Deficits IADL Deficits Identified No Deficits Home Safety Awareness Awareness of Need for Assistance at Home Good Awareness Ability to Problem Solve Emergency Able to Problem Solve Situations Medication Management Medication Management No Deficits Identified Money Management Money Management No Deficits Identified Meal Preparation Meal Preparation Caregiver Provides Assist Windows Systems Administrator Windows Systems Administrator Caregiver Provides Assist Driving Driving Concerns Identified Regarding Safety Driving Comments 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 M6 OT- IP Functional Cognition Start: 12/08/23 13:16 Freq: Status: Active Protocol: Document 12/10/23 17:34 [facility] (Rec: 12/10/23 17:48 [facility] [id number]) Cognitive Factors Limiting Selfcare Function Cognitive Comments Cognitive Assessment Comments Pt has good insight as realizes now that she is going to seel her car and not drive anymore. Pt able to recall when to ask for pain medications for the nurse. Pt actively using her right hand with mobility needs at this time. Pt still a little neglect to rigth hand but much better today. M7 OT- IP Mobility and Balance Start: 12/08/23 13:16 Freq: Status: Active Protocol: Document 12/10/23 17:34 [facility] (Rec: 12/10/23 17:48 [facility] [id number]) OT-Transfer Assessment Sit to and From Stand Sit to and from Stand Moderate Assistance,1 Person Assistance Transfers Transfer Ability Moderate Assistance,Maximum Assistance,1 Person Assistance Technique Transfer Destination Bed,Chair Transfer Technique Stand Step Pivot Devices Transfer Assistive Devices Gait Belt,Front Wheeled Walker Comments Mobility Comments Pt able to actively weigth bear through her right forearm and hand to asisst to get to the edge of the bed with head up. CGA to assist to scoot forwards. MODA X 1 to come to stand and transfer to the recliner. Pt needing assist to help hold the FWW with her right hand. OT- Balance Assessment Sitting Balance and Reactions Static Sitting Balance Ability Good Dynamic Sitting Balance Ability Fair Standing Balance and Reactions Static Standing Balance Ability Fair Dynamic Standing Balance Ability Fair M8 OT- IP Objective Assessments Start: 12/08/23 13:16 Freq: Status: Active Protocol: Document 12/10/23 17:34 [facility] (Rec: 12/10/23 17:48 [facility] [id number]) OT Strength Upper Extremity Strength Assessment Right Impaired OT- Coordination Assessment Comments Coordination Comments Pt now able to do lateral pinch with right hand to sort wet paper into the trash. Edcuated pt of grading her pressure of her hand to be able to grasp a paper cup. Able to do gentle mobs to her rigth hand and not able to make a fist. OT Sensation Assessment Comments Summary Comments Pt much more mindful of using her right arm today. M9 OT- IP Assessment and Plan Start: 12/08/23 13:16 Freq: Status: Active Protocol: Document 12/10/23 17:34 [facility] (Rec: 12/10/23 17:48 [facility] [id number]) OT Summary Assessment and Plan Potential Rehabilitation Potential Excellent Analytic Complexity at Evaluation High Summary OT Impairments Strength,Balance,Coordination, Sensation,Functional Mobility, Self-Feeding,Grooming,Dressing ,Toileting,Bathing,Toilet Transfers,Shower Transfers, Activity Tolerance Progress Towards Goals Progressing Toward Goals Assessment Summary Pt now able to transfer with one person assist and actively use her right UE more for weightbearing to help to get up durign bed mobility and transfer with the FWW. Pt is an excellent candidate for acute rehab at this time. Goals Self-Feeding Goal Independent Grooming Goal Independent Dressing Goal Independent Toileting Goal Independent Bathing Goal Independent Toilet Transfer Goal Independent Shower Transfer Goal Independent Days to Meet Goals 24 Frequency of Treatment Frequency Of Treatment Once a Day Treatment Plan OT Treatment Plan ADL Training,Functional Mobility,Neuromuscular Re- education,Therapeutic Exercises,Patient/Family Education,Discharge Planning Other Treatment Recommendations and Next BSC transfer, ADLs, UE therex Treatment Focus Discharge Recommendations OT Discharge Recommendations Acute Rehab Transportation Needs at Discharge Private Vehicle,Wheelchair/ Cabulance
[2023-12-10] MEDS: ATORVASTATIN 20 MG TABLET 40 MG PO (20:27)
[2023-12-11] VITALS (11 sets, daily range): BP systolic 130–165; BP diastolic 45–68; PULSE 56–66; RESP 14–18; TEMP 35.6–36.6; O2SAT 66–98
[2023-12-11] MEDS: ACETAMINOPHEN 325 MG TABLET 650 MG PO ×3 (05:58→18:56)
--- NOTE | 2023-12-11 07:58 | PM.PN.1 ---
Subjective Subjective Interval history: Admitted with COVID, urinary tract infection with bacteremia. She had a right paresis which is improving. The leg is currently doing better than the arm. She was accepted at inpatient rehab at [facility] and [place] tomorrow, December 11. S: No cough or dyspnea. She has improved strength in her right arm, and now just has some weakness in the wrist and hand especially with her fingers. Her leg is much improved. Exam Vital Signs (past 8 hours): - 12/11/23 00:00 12/11/23 03:00 12/11/23 04:00 Temperature 96.2 F L Pulse Rate 56 L Respiratory Rate 18 Blood Pressure 154/68 H Pulse Oximetry 96 96 97 Oxygen Delivery Method Room Air Room Air Oxygen Delivery Method Room Air Oxygen Flow Rate 0 Narrative Exam Narrative: NAD, alert and oriented. Fluent speech. Lungs are clear, normal rate and effort. Heart is regular, no murmur gallop or rub. Abdomen is soft, non distended. Extremities are free of edema. Can move her right arm around quite well except she still has some weakness with extension at the wrist and all fingers. She also has difficulty walking or fingers along her thumb with the right hand. Objective Labs 12/10/23 06:08 12/10/23 06:08 [facility] Medical History Carotid artery disease Non Hodgkin's lymphoma Asthma Diabetes Surgical History History of back surgery H/O tubal ligation History of carpal tunnel surgery History of knee replacement Family History Mother Stroke Father Colon cancer Social History marital status: details: ALSO LIVES WITH GRANDDAUGHTER AND SON-IN-LAW household members: spouse and family lives independently: Yes occupational status: previously employed Smoking Status: Former smoker alcohol intake: current substance use type: does not use Assessment & Plan Assessment & Plan narrative: 1. CVA, present on admission and active. Left frontoparietal. - with presenting NIHSS 2, now improved to 1, give plavix load 300 mg now, continue asa and plavix x21 days unless evidence of afib - PT/OT/NOVELTY CANDY MAKER evaluations ordered - MR confirmed L frontal infarct 2. Pyelonephritis and bacteremia (pansensitive E. Coli), present on admission and improving. - CT abdomen negative for obstructing stone -14 day course of antibiotics. Can transition to oral fluoroquinolone as of today. 3. Leukocytosis, present on admission and active. - recent lymph node on outside CT no longer present on current imaging today but WBC at 37K with smudge cells is suspicious, has outpatient follow up with Onc arranged and leukocytosis may be due to acute cystitis. 4. HTN, present on admission and active. - continue home antihypertensives 5. Diabetes, type 2, on insulin, present on admission and active. - continue lantus 8 U AM, 4 U TID AC, and low dose sliding scale. - A1c ordered 6. Metabolic acidosis, present on admission and improved. - possibly due to JUAN. 7. JUAN, present on admission and improved. - improved with IV fluids, will continue for now 8. Troponin elevation, present on admission and active. - will check echo as above. Trop 0.8 improved to 0.7 on repeat. No EKG findings of ischemia or chest pain. 9. COVID 19 pneumonia, likely resolved. - asymptomatic and likely resolved symptoms from 2 weeks ago, but patient never tested as outpatient. Continue isolation precautions. PLAN: -continue dual antiplatelet therapy, statin. We are looking for a discharge for ongoing rehabilitation. She will likely end up rehabilitating at a assisted facility. -COVID isolation. -14 day course of antibiotics we will transitioned to oral antibiotics today. Levofloxacin 750 PO daily (through 12/19). -continue PT and OT efforts. -monitor renal function. -continue current diabetic management, her blood sugars are well-controlled. CALVIN, Dispo: Discharge on November 2015 inpatient rehab in [place], [facility] with family. Time-Based Coding :: 20 min spent with patient and on the chart (including review of chart, obtaining history, exam, reviewing outside data, placing orders, documenting exam and treatment plan, and counseling patient) on 12/10.
[2023-12-11] MEDS: INSULIN LISPRO 100 UNIT/ML 3ML VIAL SUBCUT ×5 (08:23→16:58)
[2023-12-11] MEDS: INSULIN GLARGINE 100 UNIT/ML 3ML PEN 8 UNIT SUBCUT (08:24)
[2023-12-11] MEDS: ENOXAPARIN 40 MG/0.4 ML SYRINGE SUBCUT (08:25)
[2023-12-11] MEDS: ASPIRIN EC 81 MG TABLET PO (08:25)
[2023-12-11] MEDS: METOPROLOL IR 25 MG TABLET 12.5 MG PO ×2 (08:25→21:32)
[2023-12-11] MEDS: CLOPIDOGREL 75 MG TABLET PO (08:25)
--- NOTE | 2023-12-11 11:04 | CM.DPC ---
DCP Cont. Reviewed EMR and team rounds for status updates. Received call from [facility] in [place] that they can accept pt once the [facility] auth is in, anticipated later today or early tomorrow. Her granddaughter will plan to transport her tomorrow at discharge once we confirm what time they can accept her. Call facility in the am to confirm. [facility]:
--- NOTE | 2023-12-11 13:59 | PT.IPTN ---
Current Diagnoses Cerebral infarction, unspecified (12/07/23) Physical Therapy Treatment Note M2 PT-IP Current Condition Start: 12/08/23 11:15 Freq: NEEDED Status: Active Protocol: Document 12/08/23 11:02 MB (Rec: 12/08/23 11:55 MB [id number]) Physical Therapy Current Condition Current Condition Evaluation Date 12/08/23 Treatment Diagnosis COVID, stroke, [place] M3 PT-IP Subjective Start: 12/08/23 11:15 Freq: NEEDED Status: Active Protocol: Document 12/11/23 13:33 MB (Rec: 12/11/23 13:58 MB [id number]) Subjective Physical Therapy Visit Type Type Treatment Note Visit Start Time 13:33 Visit Stop Time 13:49 Number of SIGNAL MAINTAINER Visits 3 Physical Therapy Visit Comments Patient Comments Pt sitting up in chair and is agreeable to PT. Therapy Pain Assessment Pain When Pain Assessed At Rest Pain Present Pain Present Denied Pain M4 PT-IP Mobility and Gait Start: 12/08/23 11:15 Freq: NEEDED Status: Active Protocol: Document 12/11/23 13:33 MB (Rec: 12/11/23 13:58 MB [id number]) PT-Transfer Assessment Sit to and From Stand Sit to and from Stand Contact Guard Assistance,1 Person Assistance,Use of Upper Extremities Equipment Transfer Assistive Device Gait Belt,Front Wheeled Walker Orthotic/Prosthetic Devices or Brace: No Transfers Transfer Destination Chair Transfer Technique Ambulation Transfer Ability Level of Assist Contact Guard Assistance,1 Person Assistance,Use of Upper Extremities Comments Mobility Comments Pt uses left hand more than the right and right hand does rest on arm rest of right chair: 5 reps STS, rest break, and then another 5 reps. Pt stands up to RW. She has forward, flexed posture Gait Assessment Gait Gait Assistance Required: Contact Guard Assist,1 Person Assist Distance (Feet) 20 Assistive Devices Assistive Device Gait Belt,Front Wheeled Walker Orthotic/Prosthetic Devices or Brace: No Factors Limiting Gait Function Factors Limiting Gait Function Decreased Sensation, Incoordination,Poor Balance Comments Gait Comments Much improvement with stepping and pt occ performs step-to gait with decreased heel strike and toe off. While right line construction superintendent is weak, she is able to manage RW without physical assistance from PT today. PT-Balance Assessment Sitting Balance and Reactions Static Sitting Balance Ability Good Dynamic Sitting Balance Ability Good Standing Balance and Reactions Static Standing Balance Ability Good Dynamic Standing Balance Ability Good Device Used RW M5 PT-IP Objective Assessments Start: 12/08/23 11:15 Freq: NEEDED Status: Active Protocol: Document 12/08/23 11:02 MB (Rec: 12/08/23 11:55 MB [id number]) Orientation Orientation/Cognition Level of Alertness Alert Orientation Name,Age,Birthday,Month,Date, Year,Day of Week,Place, Situation Language Function Ability No Deficits Noted Safety Awareness Decreased Safety Awareness Memory Description No Deficits Noted Gross Range of Motion Upper Extremity ROM Assessment Right Impaired Impairments Defer to OT Lower Extremity ROM Assessment Right Impaired Impairments Pt has trouble tolerating ROM and MMT and her right LE is functionally weaker than the left with great toe extension and ankle DF grossly 75% normal range with legs supported in recliner Strength Lower Extremity Strength Assessment Bilaterally Impaired Comments Strength Comments Pt does not tolerate MMT well and c/o pain with PT's hand placement and PT attempts to alter x3 but pt still cannot tolerate. Right ankle and knee and hip are weaker than the left and pt also presents with left knee weakness with attempted testing Coordination Assessment Gross Coordination Gross Coordination Impaired Assessment Coordination Comments Gross motor coordination abnormal with right extremity attempted use for transfer with PT Sensation Assessment Sensation Gross Sensation Right LE Impaired Sensation Description Numbness Muscle Tone Muscle Tone WNL Yes Other Assessments Other Other Assessments PF tone may be starting in RLE , difficult to determine on assessment given pt response M6 PT-IP Treatment Start: 12/08/23 11:15 Freq: NEEDED Status: Active Protocol: Document 12/11/23 13:33 MB (Rec: 12/11/23 13:58 MB [id number]) Physical Therapy Treatment Exercises Exercises Ankle Pumps Education Education Provided Safety Other Treatments Other Treatment Performed Sitting LAQ and hip flexion x20 reps M7 PT-IP Assessment and Plan Start: 12/08/23 11:15 Freq: NEEDED Status: Active Protocol: Document 12/11/23 13:33 MB (Rec: 12/11/23 13:58 MB [id number]) PT Summary Assessment and Plan Potential Rehabilitation Potential Good Status of Condition at Evaluation Evolving Summary Impairments Pain,ROM,Strength,Balance, Coordination,Sensation,Tone, Bed Mobility,Transfers,Gait, Activity Tolerance Progress Towards Goals Progressing Toward Goals Assessment Summary Pt is progressing nicely with PT. She con't with right sided weakness, most noticeable in right UE compared to left and mild decreased right sided awareness but she is able to keep right hand on walker and turn with the walker today, even with decreased right line construction superintendent strength. Improvement in gait distance tolerance as well. She is an excellent acute rehab candidate. Goals Transfer Goal Standby Assistance,Front Wheeled Walker Gait Goal Standby Assistance,Front Wheel Walker Gait Distance 75 Days to Meet Goals 7 Frequency of Treatment Frequency Of Treatment Once a Day Treatment Plan Physical Therapy Treatment Plan Bed Mobility Training,Transfer Training,Gait Training, Therapeutic Exercise,Balance Retraining,Discharge Planning, Hot or Cold Pack,Neuromuscular Re-ed,Coordination Retraining ,Manual Therapy Other Recommendations and Next Treatment Progress transfers Focus Precautions Other Precautions COVID Weight Bearing Status Weight Bearing Status Weight Bear as Tolerated Recommendations To Nursing Amount of Assist Needed 1 Person Assist Discharge Recommendations PT Discharge Recommendations Acute Rehab Transportation Needs at Discharge Wheelchair/Cabulance
--- NOTE | 2023-12-11 15:35 | OT.IP.TRT ---
Current Diagnoses Cerebral infarction, unspecified (12/07/23) Occupational Therapy Treatment Note M2 OT-IP Current Condition Start: 12/08/23 13:16 Freq: Status: Active Protocol: Document 12/08/23 13:17 CGR (Rec: 12/08/23 13:35 CGR [id number]) Occupational Therapy Current Condition Current Condition Evaluation Date 12/08/23 Treatment Diagnosis R sided weakness, MRI shows acute L frontal lobe infarct Diagnosis Onset Date 12/07/23 M3 OT- IP Subjective and Pain Start: 12/08/23 13:16 Freq: Status: Active Protocol: Document 12/11/23 16:03 [facility] (Rec: 12/11/23 16:14 [facility] [id number]) OT- Subjective Occupational Therapy Visit Type Type Treatment Note Visit Start Time 14:45 Visit Stop Time 15:35 Occupational Therapy Visit Comments Patient Comments Pt wanting to use the bathroom . Patient/Caregiver Goals TO go to skilled rehab. OT Pain Assessment Pain When Pain Assessed At Rest Pain Present Pain Present Denied Pain M4 OT- IP ADL's Start: 12/08/23 13:16 Freq: Status: Active Protocol: Document 12/11/23 16:03 [facility] (Rec: 12/11/23 16:14 [facility] [id number]) OT [id number] Comments OT Self-Feeding Comments Pt able to assist with right hand a little for set-up be still needing to use left hand to eat. OT ADL-Grooming Comments OT Grooming Comments Pt able to grossly hold the rounded brush with right hand but not able to simultaneously hold and brush the back of her hair and able to stroke the right side of her head lightly. OT ADL-Dressing General Eval Lower Body Dressing Ability Moderate Assistance Comments OT Dressing Comments Pt able to get her right thumb in the brief and assist to help left hand to pull down her brief, Pt needing assist to help pull up over her hips. OT ADL-Toileting General Evaluation Toileting Ability Moderate Assistance Areas Needing Assistance Manage Clothing OT ADL-Bathing Comments OT Bathing Comments Pt able to shower with nursing aid earlier. M5 OT- IP IADL's Start: 12/08/23 13:16 Freq: Status: Active Protocol: Document 12/08/23 13:17 CGR (Rec: 12/08/23 13:35 CGR [id number]) OT-Instrumental Activities of Daily Living Deficits IADL Deficits Identified No Deficits Home Safety Awareness Awareness of Need for Assistance at Home Good Awareness Ability to Problem Solve Emergency Able to Problem Solve Situations Medication Management Medication Management No Deficits Identified Money Management Money Management No Deficits Identified Meal Preparation Meal Preparation Caregiver Provides Assist Cloth Handler Cloth Handler Caregiver Provides Assist Driving Driving Concerns Identified Regarding Safety Driving Comments 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 M6 OT- IP Functional Cognition Start: 12/08/23 13:16 Freq: Status: Active Protocol: Document 12/11/23 16:03 [facility] (Rec: 12/11/23 16:14 [facility] [id number]) Cognitive Factors Limiting Selfcare Function Cognitive Comments Cognitive Assessment Comments Pt appears intact. M7 OT- IP Mobility and Balance Start: 12/08/23 13:16 Freq: Status: Active Protocol: Document 12/11/23 16:03 [facility] (Rec: 12/11/23 16:14 [facility] [id number]) OT-Transfer Assessment Sit to and From Stand Sit to and from Stand Minimal Assistance Transfers Transfer Ability Contact Guard Assistance Technique Transfer Destination Chair,Toilet Transfer Technique Stand Step Pivot Devices Transfer Assistive Devices Gait Belt,Front Wheeled Walker Comments Mobility Comments Pt able to actively place her right hand on the armrest of the recliner and BSC to assist to push with RUE to come to stand. Pt tends to favor her left side and when assist her to get up with weight equally over both arms needing KAMILLA for therapist to help guide her come up equally on both sides. OT- Balance Assessment Sitting Balance and Reactions Static Sitting Balance Ability Good Dynamic Sitting Balance Ability Fair Standing Balance and Reactions Static Standing Balance Ability Fair Dynamic Standing Balance Ability Fair M8 OT- IP Objective Assessments Start: 12/08/23 13:16 Freq: Status: Active Protocol: Document 12/11/23 16:03 [facility] (Rec: 12/11/23 16:14 [facility] [id number]) OT Strength Comments Strength Comments Pt starting to be able to grasp items better, holding her cell phone, throw out tissue,etc... Emphasized pt to work on extension motions. M9 OT- IP Assessment and Plan Start: 12/08/23 13:16 Freq: Status: Active Protocol: Document 12/11/23 16:03 [facility] (Rec: 12/11/23 16:14 [facility] [id number]) OT Summary Assessment and Plan Potential Rehabilitation Potential Excellent Analytic Complexity at Evaluation High Summary OT Impairments Strength,Balance,Coordination, Sensation,Functional Mobility, Self-Feeding,Grooming,Dressing ,Toileting,Bathing,Toilet Transfers,Shower Transfers, Activity Tolerance Progress Towards Goals Progressing Toward Goals Assessment Summary Pt much improved and actively using her hand for all needs. Swelling in right hand improving as well and pt has been mindful of her right hand and making sure to keep it up. Pt looking to go to acute rehab tomorrow. Goals Self-Feeding Goal Independent Grooming Goal Independent Dressing Goal Independent Toileting Goal Independent Bathing Goal Independent Toilet Transfer Goal Independent Shower Transfer Goal Independent Days to Meet Goals 20 Frequency of Treatment Frequency Of Treatment Once a Day Treatment Plan OT Treatment Plan ADL Training,Functional Mobility,Neuromuscular Re- education,Therapeutic Exercises,Patient/Family Education,Discharge Planning Other Treatment Recommendations and Next UE ex Treatment Focus Discharge Recommendations OT Discharge Recommendations Acute Rehab Transportation Needs at Discharge Private Vehicle
[2023-12-11] MEDS: levoFLOXacin 250 MG TABLET 750 MG PO (17:27)
[2023-12-11] MEDS: ATORVASTATIN 20 MG TABLET 40 MG PO (21:33)
[2023-12-12 00:01] VITALS: BP 166/51; PULSE 60; RESP 17; TEMP 35.7; O2SAT 96
[2023-12-12] MEDS: ACETAMINOPHEN 325 MG TABLET 650 MG PO ×2 (01:02→06:14)
[2023-12-12 02:00] VITALS: O2SAT 96
[2023-12-12 03:00] VITALS: BP 155/65; PULSE 58; RESP 18; TEMP 35.8; O2SAT 97
[2023-12-12 05:36] LABS: Add Manual Diff / Slide Review NO; Basophils Absolute Auto 0 /uL (0-100); Basophils Percent Auto 0.5 % (0-2); Eosinophils Absolute Auto 500 /uL (0-450); Eosinophils Percent Auto 6.5 % (2-4); Hematocrit 31.8 % (36-46); Hemoglobin 10.4 g/dL (12.0-16.0); Lymphocytes Absolute Auto 2200 /uL (1100-4500); Lymphocytes Percent Auto 26.4 % (25-40); Mean Corpuscular HGB Conc 32.6 % (30-36); Mean Corpuscular Volume 104.4 fL (80-100); Monocytes Absolute Auto 900 /uL (0-900); Neutrophils Absolute Auto 4700 /uL (1500-7000); Neutrophils Percent Auto 55.6 % (50-75); Platelet Count 220 X10^3/uL (150-400); Red Blood Cell Count 3.04 X10^6/uL (4.0-5.2); Red Cell Distribution Width 13.9 % (11.6-14.8); White Blood Cell Count 8.4 X10^3/uL (4.5-11.0)
[2023-12-12 05:49] LABS: BUN Creatinine Ratio 23.9 (6-22); Blood Urea Nitrogen 27 mg/dL (7-17); Calcium 7.8 mg/dL (8.4-10.2); Carbon Dioxide 18 mmol/L (22-32); Chloride 117 mmol/L (98-107); Estimated Glomerular Filt Rate 49 mL/min (>60); Glucose 118 mg/dL (80-110); HEMOLYSIS < 15 (0-50); Potassium 4.2 mmol/L (3.4-5.1); Sodium 141 mmol/L (137-145)
[2023-12-12 05:52] VITALS: O2SAT 96
[2023-12-12] MEDS: levoFLOXacin 250 MG TABLET 750 MG PO (06:15)
[2023-12-12 07:00] VITALS: BP 129/56; PULSE 70; RESP 16; TEMP 36.1; O2SAT 95
[2023-12-12] MEDS: INSULIN LISPRO 100 UNIT/ML 3ML VIAL SUBCUT (07:51)
[2023-12-12] MEDS: INSULIN GLARGINE 100 UNIT/ML 3ML PEN 8 UNIT SUBCUT (07:52)
[2023-12-12] MEDS: ENOXAPARIN 40 MG/0.4 ML SYRINGE SUBCUT (09:34)
[2023-12-12] MEDS: METOPROLOL IR 25 MG TABLET 12.5 MG PO (09:35)
[2023-12-12] MEDS: CLOPIDOGREL 75 MG TABLET PO (09:35)
[2023-12-12] MEDS: ASPIRIN EC 81 MG TABLET PO (09:35)
--- NOTE | 2023-12-12 10:29 | PM.DS.1 ---
History of Present Illness History of Present Illness Date Patient Seen: 12/12/23 Time Patient Seen: 08:30 Date of Onset of Symptoms: 12/07/23 Chief complaint: CODE STROKE Narrative: Narrative: This is a 78 year old female with PMH of carotid stenosis, DM, asthma, and non-hodgkins lymphoma (due to see oncology at [facility] after 1cm supraclavicular LN was seen on CT imaging) who presented with R sided weakness this morning when she woke up. Last known normal was yesterday evening. She denies any slurred speech, facial droop, numbness or tingling. She denies prior stroke, palpitations, chest pain, or recent dyspnea on exertion. 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 She reports a cold a couple of weeks ago, lasting for approx. 10 days but now resolved. No current cough or known sick contacts. In the ER, her virtals were unremkarkable. Initial CT and CTA were unremarkable. Lab evaluation showed WBC of 36.8, Hg 9.7, with smudge cells pending pathology review. Chemistries showed an JUAN with Cr of 1.73 with a CO2 of 11. Troponin was 0.863 and improved to 0.791 on repeat. EKG showed NSR without evidence of acute ischemia. Procalcitonin was 91.9. UA was positive and reflexed for culture. CT chest abdomen pelvis was unremarkable for acute pathologies. MR of her brain showed an acute infarct of the left frontal lobe. Upon my evaluation the patient had improvement in her R sided strength, but remains weak. COVID 19 testing was positive. She was admitted for further management. Discharge Providers Provider Date of admission: 12/07/23 18:17 Discharge Date: 12/12/23 Primary care physician: Khaldia Ramesh PA-C Consults: 12/07/23 13:42 Consult to CATERING DIRECTOR - [employer] Stat Comment: [employer] Consult needed for:: Other reason (Comment) Comment: family is concerned and wondering about rehab or [facility] care placement if needed. pt will be admitted to floor. 12/07/23 19:20 Consult to Discharge Planning Routine Comment: Consult to Occupational Therapy Evaluate & Treat Comment: Physician Instructions: Evaluate and treat Consult to Physical Therapy Evaluate & Treat Comment: Physician Instructions: Evaluate and Treat Consult to Speech Therapy Evaluate & Treat Comment: Physician Instructions: Evaluate and treat Discharge provider: Theron Patrick MD Summary Hospital Course Discharge Diagnosis: 1. CVA, present on admission and active. Left frontoparietal. - with presenting NIHSS 2, now improved to 1, given plavix load 300 mg on admission, continue asa and plavix x21 days with no evidence of atrial fibrillation - simvastatin switched to high intensity atorvastatin - PT/OT/TRUCK SALES MANAGER evaluations performed and therapy initiated. - MR confirmed L frontal infarct - inpatient rehabilitation arranged at discharge 2. Pyelonephritis and bacteremia (pansensitive E. Coli), present on admission and improving. - CT abdomen negative for obstructing stone - 14 day course of oral levofloxacin to complete in 9 more days. 3. Leukocytosis, present on admission and active. - recent lymph node on outside CT no longer present on current imaging today but WBC at 37K with smudge cells is suspicious, has outpatient follow up with Onc arranged and leukocytosis may be due to acute cystitis. 4. HTN, present on admission and active. - continue home antihypertensives 5. Diabetes, type 2, on insulin, present on admission and active. - continue lantus 8 U AM, 4 U TID AC, and low dose sliding scale. - A1c ordered 6. Metabolic acidosis, present on admission and resolved. - possibly due to JUAN. 7. JUAN, present on admission and resolved. - improved with IV fluids, will continue for now 8. Troponin elevation, present on admission and resolved. - will check echo as above, pending. Trop 0.8 improved to 0.7 on repeat. No EKG findings of ischemia or chest pain. - metoprolol added as well as aspirin, clopidogrel and simvastatin switched to atorvastatin 9. COVID 19 pneumonia, likely resolved. - asymptomatic and likely resolved symptoms from 2 weeks ago, but patient never tested as outpatient. Completed isolation precautions. Hospital Course: Brain CT 12/07/2023: No CT evidence of acute intracranial pathology. No significant changes from previous study. Head/neck CT a 12/07/2023: 1. No hemodynamically significant stenosis or aneurysm is seen in the intracranial circulation. 2. Moderate atherosclerotic calcifications involving bilateral carotid bifurcations and proximal internal carotid arteries with up to 60% stenosis involving proximal right internal carotid artery and up to 67% stenosis in proximal left internal carotid artery. Chest/abdomen/pelvis CT 12/07/2023: 1. Ill-defined hazy ground-glass opacities are seen scattered in bilateral lung [place] with associated bronchial wall thickening concerning for pneumonitis versus infiltrate secondary to atypical viral pneumonia. No pleural effusion or pneumothorax. 2. No abnormally enlarged lymph nodes are seen in chest, abdomen or pelvis. 3. No acute inflammatory process is seen in abdomen or pelvis. No free fluid or free air. 4. Extensive postsurgical changes in lumbar spine and right hip with beam hardening artifacts. Brain MRI 12/07/2023: 1. Finding is suggestive of small acute infarctions involving left posterior frontal parietal subcortical white matter. 2. No acute intracranial bleed, midline shift or mass effect. 3. Age related volume loss and extensive white matter chronic small vessel ischemic changes. Echocardiogram 12/07/2023: Pending Status at Discharge Cognitive/behavioral status at discharge: oriented Functional status at discharge: uses cane/walker Overall status at discharge: patient is not back to baseline Time Spent with Patient Time spent: Greater than 30 minutes Exam Vital Signs (past 8 hours): - 12/12/23 03:00 12/12/23 05:52 12/12/23 07:00 Temperature 96.5 F L 97.0 F L Pulse Rate 58 L 70 Respiratory Rate 18 16 Blood Pressure 155/65 H 129/56 L Pulse Oximetry 97 96 95 Oxygen Delivery Method Room Air Oxygen Flow Rate 0 12/12/23 07:00 Temperature Pulse Rate Respiratory Rate Blood Pressure Pulse Oximetry Oxygen Delivery Method Room Air Oxygen Flow Rate Oxygen Delivery Method Room Air Oxygen Flow Rate 0 Narrative Exam Narrative: NAD, alert and oriented. Fluent speech. Lungs are clear, normal rate and effort. Heart is regular, no murmur gallop or rub. Abdomen is soft, non distended. Extremities are free of edema. Can move her right arm around quite well except she still has some weakness with extension at the wrist and all fingers. She also has difficulty walking or fingers along her thumb with the right hand. Objective Labs 12/12/23 05:18 12/12/23 05:18 Labs: Laboratory Results - last 24 hr 12/12/23 05:18 WBC 8.4 RBC 3.04 L Hgb 10.4 L Hct 31.8 L MCV 104.4 H MCH 34.0 MCHC 32.6 RDW 13.9 Plt Count 220 Neut % (Auto) 55.6 Lymph % (Auto) 26.4 [place] % (Auto) 11.0 Eos % (Auto) 6.5 H Baso % (Auto) 0.5 Neut # (Auto) 4700 Lymph # (Auto) 2200 [place] # (Auto) 900 Eos # (Auto) 500 H Baso # (Auto) 0 Sodium 141 Potassium 4.2 Chloride 117 H Carbon Dioxide 18 L BUN 27 H Creatinine 1.13 H Estimated GFR 49 L BUN/Creatinine Ratio 23.9 H Glucose 118 H Calcium 7.8 L PFSH Medical History Carotid artery disease Non Hodgkin's lymphoma Asthma Diabetes Surgical History History of back surgery H/O tubal ligation History of carpal tunnel surgery History of knee replacement Family History Mother Stroke Father Colon cancer Social History marital status: details: ALSO LIVES WITH GRANDDAUGHTER AND SON-IN-LAW household members: spouse and family lives independently: Yes occupational status: previously employed Smoking Status: Former smoker alcohol intake: current substance use type: does not use Discharge Plan Discharge Plan Patient Disposition: er Inpatient Rehab Other facility: [facility] Discharge orders & Medications Discharge Orders: Discharge (Order); Ordered 12/12/23 Ordered By: Theron Patrick Prescriptions: New metoprolol tartrate 25 mg Tablet 12.5 mg PO BID Qty: 60 0RF levofloxacin 250 mg Tablet 750 mg PO 0700 Qty: 27 0RF aspirin 81 mg Tablet,Delayed Release (Dr/Ec) 81 mg PO DAILY Qty: 30 0RF atorvastatin 20 mg Tablet 40 mg PO BEDTIME Qty: 60 0RF clopidogrel 75 mg Tablet 75 mg PO DAILY Qty: 30 0RF Continued omeprazole 20 mg capsule,delayed release(DR/EC) 20 mg PO DAILY meloxicam 7.5 mg tablet 7.5 mg PO DAILY valacyclovir 500 mg tablet 1,000 mg PO DAILY escitalopram oxalate 20 mg tablet 20 mg PO DAILY lisinopril 40 mg tablet 40 mg PO DAILY lidocaine 5 % adhesive patch,medicated 1 patch topical DAILY PRN (Reason: Pain, Moderate) Rx Instructions: leave on most painful area for up to 12 hrs Combivent Respimat 20-100 mcg/actuation mist 1 puff inhalation 6XD Rx Instructions: space evenly during waking hours albuterol sulfate 90 mcg/actuation HFA aerosol inhaler 2 puff inhalation Q4-6H PRN (Reason: airway) acetaminophen 650 mg PO Q8H hyoscyamine sulfate 0.125 mg tablet 0.25 mg PO QID simvastatin 5 mg tablet 5 mg PO DAILY nystatin 100,000 unit/gram cream 1 applic topical DAILY nystatin 100,000 unit/gram powder 1 applic topical BID polyethylene glycol 3350 [Miralax] 17 gram/dose powder 17 g PO DAILY PRN (Reason: Constipation) insulin aspart U-100 [Novolog FlexPen U-100 Insulin] 100 unit/mL (3 mL) insulin pen 4 unit SUBCUT AC Patient Comments: [NO ORIGINAL SIG] Rx Instructions: 3X DAILY BEFORE MEALS insulin glargine [Lantus Solostar U-100 Insulin] 100 unit/mL (3 mL) insulin pen 12 unit SUBCUT DAILY Patient Comments: [NO ORIGINAL SIG] Follow up/Referrals: Khalida Ramesh PA-C [Primary Care Provider] - Discharge Data Primary Care Provider: Khalida Ramesh Quality Stroke Contraindication Not Initiating IV-Tpa: Not indicated Symptom Onset Unknown: Yes Contraindication Antithromb by Day Two: Not indicated Reason for No Antithrombin at DC: Not indicated Reason for No Anticoagulant at DC: Not indicated Rehab Services Assessed: Stroke rehabilitation MIPS - Admit I confirm the patient?s Advance Care Plan is present, Code status is documented, Surrogate decision maker is in patient?s record [If Yes, STOP here]: Yes [facility] - Meds 'Current medications' to include all prescriptions, [id number] products, herbals, cannabis/cannabidiol products, and vitamin/mineral/dietary (nutritional) supplements. I have utilized all available resources to obtain, update, or review the patient?s current medications. [If Yes, STOP here]: Yes [facility] - DC The patient has a history of heart transplant or Left Ventricular Assist Device (LVAD). If yes, STOP here.: No The patient has current or prior documentation of left ventricular ejection fraction (LVEF) less than or equal to 40%, or moderate or severely depressed left ventricular systolic function.: No A. The patient was prescribed or already taking an Angiotensin-Converting Enzyme (HAYLEY) Inhibitor, or Angiotensin Receptor Arsen (ARB).: Yes B. The patient was prescribed or already taking a beta-arsen. [If Yes to Both A & B, STOP here]: Yes Patient not prescribed/taking HAYLEY or ARB, no reason given.: No Patient not prescribed/taking beta-arsen, no reason given.: No PROFEE Charge Codes Discharge inpatient/observation: [id number]
--- NOTE | 2023-12-12 10:48 | OT.IP.TRT ---
Current Diagnoses Cerebral infarction, unspecified (12/07/23) Occupational Therapy Treatment Note M2 OT-IP Current Condition Start: 12/08/23 13:16 Freq: Status: Active Protocol: Document 12/08/23 13:17 CGR (Rec: 12/08/23 13:35 CGR [id number]) Occupational Therapy Current Condition Current Condition Evaluation Date 12/08/23 Treatment Diagnosis R sided weakness, MRI shows acute L frontal lobe infarct Diagnosis Onset Date 12/07/23 M3 OT- IP Subjective and Pain Start: 12/08/23 13:16 Freq: Status: Active Protocol: Document 12/12/23 10:48 [facility] (Rec: 12/12/23 10:58 [facility] [id number]) OT- Subjective Occupational Therapy Visit Type Type Treatment Note Visit Start Time 10:10 Visit Stop Time 10:48 Occupational Therapy Visit Comments Patient Comments Pt wanting to use the bathroom and get dressed. Patient/Caregiver Goals TO go to acute rehab. OT Pain Assessment Pain When Pain Assessed At Rest Pain Present Pain Present Denied Pain M4 OT- IP ADL's Start: 12/08/23 13:16 Freq: Status: Active Protocol: Document 12/12/23 10:48 [facility] (Rec: 12/12/23 10:58 [facility] [id number]) OT [id number] Comments OT Self-Feeding Comments Pt still not able to use right hand to eat. OT ADL-Dressing General Eval Upper Body Dressing Ability Minimal Assistance Lower Body Dressing Ability Moderate Assistance Comments OT Dressing Comments Pt able to use right hand to pull down and up brief/pants, but needing assist to get them up over her hips. Pt able to cross her legs over to grey her shoes but not able tie yet . Pt able to grasp the laces in right hand but unable to do in hand manipulation yet. Pt needing assist to fasten her bra. OT ADL-Toileting General Evaluation Toileting Ability Minimal Assistance Areas Needing Assistance Manage Clothing Comments OT Toileting Comments Assist to pull brief up over her hips. M5 OT- IP IADL's Start: 12/08/23 13:16 Freq: Status: Active Protocol: Document 12/08/23 13:17 CGR (Rec: 12/08/23 13:35 CGR [id number]) OT-Instrumental Activities of Daily Living Deficits IADL Deficits Identified No Deficits Home Safety Awareness Awareness of Need for Assistance at Home Good Awareness Ability to Problem Solve Emergency Able to Problem Solve Situations Medication Management Medication Management No Deficits Identified Money Management Money Management No Deficits Identified Meal Preparation Meal Preparation Caregiver Provides Assist Performance Specialist Performance Specialist Caregiver Provides Assist Driving Driving Concerns Identified Regarding Safety Driving Comments 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 M6 OT- IP Functional Cognition Start: 12/08/23 13:16 Freq: Status: Active Protocol: Document 12/12/23 10:48 [facility] (Rec: 12/12/23 10:58 [facility] [id number]) Cognitive Factors Limiting Selfcare Function Cognitive Comments Cognitive Assessment Comments Pt will benefit from formal cognitive assessment ACL/SLUMs while in rehab. Pt's daughter states pt has short term memory issues and at times not making good decisions. M7 OT- IP Mobility and Balance Start: 12/08/23 13:16 Freq: Status: Active Protocol: Document 12/12/23 10:48 [facility] (Rec: 12/12/23 10:58 [facility] [id number]) OT-Transfer Assessment Sit to and From Stand Sit to and from Stand Standby Assistance,Minimal Assistance Transfers Transfer Ability Standby Assistance,Contact Guard Assistance Technique Transfer Destination Chair,Toilet Transfer Technique Stand Step Pivot Devices Transfer Assistive Devices Front Wheeled Walker Comments Mobility Comments Pt KAMILLA to stand from the toilet and today able to use right hand more equally with the FWW. However during turns still uses her left hand more on the FWW. OT- Balance Assessment Sitting Balance and Reactions Static Sitting Balance Ability Good Dynamic Sitting Balance Ability Good Standing Balance and Reactions Static Standing Balance Ability Good Dynamic Standing Balance Ability Fair M8 OT- IP Objective Assessments Start: 12/08/23 13:16 Freq: Status: Active Protocol: Document 12/12/23 10:48 [facility] (Rec: 12/12/23 10:58 [facility] [id number]) OT Gross Range of Motion Upper Extremity Range of Motion Assessment Within Functional Limits OT Strength Upper Extremity Strength Assessment Right Impaired Comments Strength Comments Right hand now 3+/5. Went over activities of thumb to finger and finger to thumb for the right hand for page turning and to focus on finger and wrist extension. OT- Coordination Assessment Comments Coordination Comments Pt able to torn folded pages now. M9 OT- IP Assessment and Plan Start: 12/08/23 13:16 Freq: Status: Active Protocol: Document 12/12/23 10:48 [facility] (Rec: 12/12/23 10:58 [facility] [id number]) OT Summary Assessment and Plan Potential Rehabilitation Potential Excellent Analytic Complexity at Evaluation High Summary OT Impairments Strength,Balance,Coordination, Sensation,Functional Mobility, Self-Feeding,Grooming,Dressing ,Toileting,Bathing,Toilet Transfers,Shower Transfers, Activity Tolerance Progress Towards Goals Progressing Toward Goals Assessment Summary Pt incorporating her right arm more for ADl and mobility needs. Pt going to acute rehab today and has make excellent progress while here. Goals Self-Feeding Goal Independent Grooming Goal Independent Dressing Goal Independent Toileting Goal Independent Bathing Goal Independent Toilet Transfer Goal Independent Shower Transfer Goal Independent Days to Meet Goals 19 Frequency of Treatment Frequency Of Treatment Once a Day Treatment Plan OT Treatment Plan ADL Training,Functional Mobility,Neuromuscular Re- education,Therapeutic Exercises,Patient/Family Education,Discharge Planning Discharge Recommendations OT Discharge Recommendations Acute Rehab Transportation Needs at Discharge Private Vehicle
--- NOTE | 2023-12-12 11:13 | CM.DPC ---
DCP Continued Reviewed EMR and team rounds for pt?s medical status. DCP spoke with Sarah at [facility] and confirmed that pt was able able to get insurance authorized for inpatient rehab. It was reported that pt already spoke with transfer table operator helper and requested to leave at 1200 for an arrival at [phone] to their facility, via private vehicle. DCP entered room and met with pt and daughter. DCP provided doctor note per pt's request. DCP discussed discharge plans to inpatient rehab, pt's daughter expressed preference to leave as soon as possible, preferably at 1100. DCP relayed this to RN and Provider. DCP provided RN report # to RN, noted pt's ETA to the facility at 1500. Plan: Pt to discharge at 1100 with daughter to transport to [facility]. CM Team will continue to follow for coordination of discharge plans. CLAY Mccabe
== END 2023-12-12 11:08 | DRG 64 ==
LOC: ED 10:43 → AC 18:17
PROVIDERS: Hospitalist; Admitting Provider Internal Medicine; Emergency Provider Emergency Medicine; PCP Student in an Organized Health Care Education/Training Program; Referring Provider Emergency Medicine; Visit Provider Internal Medicine
DX: I63.9 Cerebral infarction, unspecified (principal); J12.82 Pneumonia due to coronavirus disease 2019; U07.1 COVID-19; E87.20 Acidosis, unspecified; N17.9 Acute kidney failure, unspecified; N12 Tubulo-interstitial nephritis, not specified as acute or chronic; I47.20 Ventricular tachycardia, unspecified; R29.702 NIHSS score 2; I10 Essential (primary) hypertension; R29.706 NIHSS score 6; E11.9 Type 2 diabetes mellitus without complications; B96.20 Unspecified Escherichia coli [E. coli] as the cause of diseases classified elsewhere; I27.20 Pulmonary hypertension, unspecified; R79.89 Other specified abnormal findings of blood chemistry; J45.909 Unspecified asthma, uncomplicated; Z85.72 Personal history of non-Hodgkin lymphomas; Z79.4 Long term (current) use of insulin; Z87.891 Personal history of nicotine dependence
CPT/HCPCS: 36415; 51701; 70450; 70496; 70498; 70551; 71250; 74176; 80048; 80053; 80305; 80320; 81001; 82550; 82962; 83036; 83605; 83735; 84145; 84443; 84484; 85007; 85025; 85610; 85730; 87040; 87077; 87086; 87154; 87186; 87633; 92523; 93005; 93306; 96365; 97162; 97167; 97530; 97535; 99285; 99291; J0696; J1650; J1815; J2543; Q9967

== ENCOUNTER 2024-05-15 20:08 | Emergency (ER) | payer MEDICARE, OTHER, SELFPAY ==
[2023-12-07 21:10] VITALS: BMI 33.5
[2024-05-15 20:20] VITALS: BP 146/65; PULSE 70; RESP 17; TEMP 37.2; O2SAT 97; BMI 34.5
--- NOTE | 2024-05-15 23:20 | ED.SKABFB ---
HPI - Skin/Abscess/Foreign Bdy General Chief complaint: Skin/Abscess/Foreign Body Stated complaint: diabetes, infected big toes Time Seen by Provider: 05/15/24 22:15 Source: patient Mode of arrival: Ambulatory History of Present Illness HPI narrative: Patient is a 78-year-old female. Is a insulin-dependent diabetic. Is here for evaluation of discomfort to her left great toe and redness to her right great toe. She denies any trauma. She was concerned about a potential infection. No sensation differences. First noticed his symptoms approximately 1 week ago. No fevers. Related Data Home Medications Medication Instructions Recorded Confirmed meloxicam 7.5 mg tablet 7.5 mg PO DAILY 05/24/22 12/07/23 omeprazole 20 mg capsule,delayed 20 mg PO DAILY 05/24/22 12/07/23 release valacyclovir 500 mg tablet 1,000 mg PO DAILY 05/24/22 12/08/23 acetaminophen 650 mg PO Q8H Pain 06/19/23 12/08/23 albuterol sulfate 90 mcg/actuation 2 puff inhalation Q4-6H PRN airway 06/19/23 12/08/23 aerosol inhaler escitalopram oxalate 20 mg tablet 20 mg PO DAILY 06/19/23 12/08/23 hyoscyamine sulfate 0.125 mg tablet 0.25 mg PO QID 06/19/23 12/07/23 ipratropium 20 mcg-albuterol 100 1 puff inhalation 6XD 06/19/23 12/07/23 mcg/actuation mist for inhalation (Combivent Respimat) lidocaine 5 % topical patch 1 patch topical DAILY PRN Pain, 06/19/23 12/07/23 Moderate lisinopril 40 mg tablet 40 mg PO DAILY 06/19/23 12/07/23 nystatin 100,000 unit/gram topical 1 applic topical DAILY 06/19/23 12/07/23 cream nystatin 100,000 unit/gram topical 1 applic topical BID 06/19/23 12/07/23 powder simvastatin 5 mg tablet 5 mg PO DAILY 06/19/23 12/07/23 polyethylene glycol 3350 17 17 g PO DAILY PRN Constipation 12/07/23 12/07/23 gram/dose oral powder (Miralax) insulin aspart U-100 100 unit/mL 4 unit SUBCUT AC 12/08/23 12/08/23 (3 mL) subcutaneous pen (Novolog FlexPen U-100 Insulin aspart) insulin glargine 100 unit/mL (3 12 unit SUBCUT DAILY 12/08/23 12/08/23 mL) subcutaneous pen (Lantus Solostar U-100 Insulin) Previous Rx's Medication Instructions Recorded cephalexin 500 mg capsule 500 mg PO QID 7 days #28 caps 05/15/24 Allergies Allergy/AdvReac Type Severity Reaction Status Date / Time gabapentin AdvReac Confusion Verified 05/15/24 20:20 Sulfa (Sulfonamide AdvReac Nausea Verified 05/15/24 20:20 Antibiotics) Review of Systems Musculoskeletal Musculoskeletal: Reports system reviewed and no additional complaints, except as documented Integumentary/Breasts Skin/Breast: Reports system reviewed and no additional complaints, except as documented Patient History Medical History Carotid artery disease Non Hodgkin's lymphoma Asthma Diabetes Surgical History History of back surgery H/O tubal ligation History of carpal tunnel surgery History of knee replacement Family History Mother Stroke Father Colon cancer Social History marital status: details: ALSO LIVES WITH GRANDDAUGHTER AND SON-IN-LAW household members: spouse and family lives independently: Yes occupational status: previously employed Smoking Status: Former smoker alcohol intake: current substance use type: does not use Smoking Status: Former smoker alcohol intake frequency: holidays/special occasions only Exam Initial Vital Signs Initial Vital Signs: Vital Signs Temperature 98.9 F 05/15/24 20:20 Pulse Rate 70 05/15/24 20:20 Respiratory Rate 17 05/15/24 20:20 Blood Pressure 146/65 H 05/15/24 20:20 Pulse Oximetry 97 05/15/24 20:20 Oxygen Delivery Method Room Air 05/15/24 20:20 Const General: cooperative, comfortable and No ill appearing HENMT Head: normal to inspection Cardio Pulses: dorsalis pedis present bilaterally Skin Other: Mild redness noted at the tips and medial aspect of bilateral great toes. Extrem Other: Toenails appear well. No signs of paronychia. No signs of ingrown toenails. Course Orders Ordered: Discontinued Medications Cephalexin HCl (Cephalexin 250 Mg Capsule) 500 mg PO NOW ONE Stop: 05/15/24 23:24 Last Admin: 05/15/24 23:44 Dose: 500 mg Documented By: SHAJI Vital Signs Vital signs: Vital Signs - 8 hr 05/15/24 23:43 05/15/24 23:50 Pulse Rate 74 74 Respiratory Rate 20 17 Blood Pressure 121/60 121/60 Pulse Oximetry 74 L 95 Oxygen Delivery Method Room Air Room Air MDM - Skin/Abscess/Foreign Bdy MDM Narrative Medical decision making narrative: She does have redness and discomfort to bilateral great toes. Denies trauma. Is an insulin-dependent diabetic. Because of this will start her on antibiotics for presumed cellulitis given her presentation. No indication for admission to the hospital. She was given return precautions and follow-up instructions. She expressed understanding agreement with plan. Discharge Plan Departure Patient Disposition: Home Clinical Impression: Cellulitis Instructions: DI for Cellulitis -- Adult Activity Restrictions/Additional Instructions: Continue to take all of your medications as directed to include the antibiotics that you were prescribed today. Contact your primary provider for a follow-up. Return to the emergency department for new or worsening symptoms. Prescriptions: New cephalexin 500 mg capsule 500 mg PO QID 7 Days Qty: 28 0RF No Action omeprazole 20 mg capsule,delayed release(DR/EC) 20 mg PO DAILY meloxicam 7.5 mg tablet 7.5 mg PO DAILY valacyclovir 500 mg tablet 1,000 mg PO DAILY escitalopram oxalate 20 mg tablet 20 mg PO DAILY lisinopril 40 mg tablet 40 mg PO DAILY lidocaine 5 % adhesive patch,medicated 1 patch topical DAILY PRN (Reason: Pain, Moderate) Rx Instructions: leave on most painful area for up to 12 hrs Combivent Respimat 20-100 mcg/actuation mist 1 puff inhalation 6XD Rx Instructions: space evenly during waking hours albuterol sulfate 90 mcg/actuation HFA aerosol inhaler 2 puff inhalation Q4-6H PRN (Reason: airway) acetaminophen 650 mg PO Q8H hyoscyamine sulfate 0.125 mg tablet 0.25 mg PO QID simvastatin 5 mg tablet 5 mg PO DAILY nystatin 100,000 unit/gram cream 1 applic topical DAILY nystatin 100,000 unit/gram powder 1 applic topical BID polyethylene glycol 3350 [Miralax] 17 gram/dose powder 17 g PO DAILY PRN (Reason: Constipation) insulin aspart U-100 [Novolog FlexPen U-100 Insulin] 100 unit/mL (3 mL) insulin pen 4 unit SUBCUT AC Patient Comments: [NO ORIGINAL SIG] Rx Instructions: 3X DAILY BEFORE MEALS insulin glargine [Lantus Solostar U-100 Insulin] 100 unit/mL (3 mL) insulin pen 12 unit SUBCUT DAILY Patient Comments: [NO ORIGINAL SIG] Referrals: Khalida Ramesh PA-C [Primary Care Provider] - Stand Alone Forms: Patient Portal/API/Survey
[2024-05-15 23:43] VITALS: BP 121/60; PULSE 74; RESP 20; O2SAT 74
[2024-05-15] MEDS: cephALEXin 250 MG CAPSULE 500 MG PO (23:44)
[2024-05-15 23:50] VITALS: BP 121/60; PULSE 74; RESP 17; O2SAT 95
== END 2024-05-15 23:48 | disposition home or self-care (01) ==
PROVIDERS: Emergency Provider Emergency Medicine; PCP Student in an Organized Health Care Education/Training Program
DX: L03.032 Cellulitis of left toe (principal); L03.031 Cellulitis of right toe; E11.9 Type 2 diabetes mellitus without complications; Z87.891 Personal history of nicotine dependence
CPT/HCPCS: 99283

== ENCOUNTER 2024-11-09 14:52 | Emergency (ER) | payer MEDICARE, OTHER, SELFPAY ==
[2023-12-07 21:10] VITALS: BMI 33.5
[2024-11-09] VITALS (16 sets, daily range): BP systolic 140–176; BP diastolic 63–82; PULSE 49–60; RESP 14–23; TEMP 36.5; O2SAT 96–99; BMI 34.3
--- NOTE | 2024-11-09 15:03 | EKG_ITS ---
[address] [address] Test Date: 2024-11-09 Pat Name: Gilma Silva Department: Room: Gender: Female Quantitative Associate: MARYBETH : 1945 Requested By: Order Number: [id number] Reading MD: Marlo Uriostegui MD Measurements Intervals Bostic Rate: 53 P: 44 RI: 164 QRS: -9 QRSD: 76 T: 44 QT: 442 QTc: 414 Interpretive Statements Sinus bradycardia Electronically Signed On 11-10-2024 6:37:28 PDT by Marlo Uriostegui MD
[2024-11-09 15:16] LABS: Add Manual Diff / Slide Review NO; Basophils Absolute Auto 0 /uL (0-100); Basophils Percent Auto 0.2 % (0-2); Eosinophils Absolute Auto 400 /uL (0-450); Eosinophils Percent Auto 3.5 % (2-4); Hematocrit 36.4 % (36-46); Hemoglobin 11.6 g/dL (12.0-16.0); Lymphocytes Absolute Auto 4500 /uL (1100-4500); Mean Corpuscular HGB Conc 31.9 % (30-36); Mean Corpuscular Hemoglobin 33.3 PG (26-34); Mean Corpuscular Volume 104.5 fL (80-100); Monocytes Absolute Auto 800 /uL (0-900); Monocytes Percent Auto 7.8 % (3-14); Neutrophils Absolute Auto 4800 /uL (1500-7000); Neutrophils Percent Auto 45.5 % (50-75); Platelet Count 198 X10^3/uL (150-400); Red Blood Cell Count 3.48 X10^6/uL (4.0-5.2); Red Cell Distribution Width 17.3 % (11.6-14.8); White Blood Cell Count 10.5 X10^3/uL (4.5-11.0)
[2024-11-09 15:22] LABS: Alanine Aminotransferase 51 IU/L (<35); Albumin 4.2 g/dL (3.5-5.0); Albumin Globulin Ratio 1.7 (1.0-2.8); Alkaline Phosphatase 67 U/L (38-126); Aspartate Aminotransferase 52 IU/L (14-36); BUN Creatinine Ratio 22.7 (6-22); Bilirubin Total 0.4 mg/dL (0.2-1.3); Blood Urea Nitrogen 32 mg/dL (7-17); Calcium 8.4 mg/dL (8.4-10.2); Carbon Dioxide 15 mmol/L (22-32); Chloride 113 mmol/L (98-107); Estimated Glomerular Filt Rate 38 mL/min (>60); Globulin 2.5 g/dL (1.7-4.1); Glucose 126 mg/dL (70-99); HEMOLYSIS < 15 (0-50); Magnesium 2.1 mg/dL (1.6-2.3); Sodium 138 mmol/L (137-145); Total Protein 6.7 g/dL (6.3-8.2)
[2024-11-09 15:24] LABS: Potassium 5.7 mmol/L (3.4-5.1)
[2024-11-09] MEDS: SODIUM CHLORIDE 0.9% 1,000 ML 1000 ML IV (15:53)
[2024-11-09] MEDS: FUROSEMIDE 40 MG/4 ML VIAL IV (15:53)
[2024-11-09] MEDS: SODIUM ZIRCONIUM CYCLOSILICATE 10 GM POWD.PACK PO (15:53)
--- NOTE | 2024-11-09 15:55 | ED.RECABL ---
HPI - Recheck/Abnormal Lab/Rx General Chief Complaint: Recheck/Abnormal Lab/Rx Stated Complaint: hyperkalemia Time Seen by Provider: 11/09/24 14:52 Source: patient and EMS Mode of arrival: EMS History of Present Illness HPI narrative: 79-year-old woman with a history of diabetes, hypertension, asymptomatic non-Hodgkin's lymphoma, carotid stenosis who was following up with her primary care physician Mary Kay Nichols and had routine blood work done. She was contacted by Dr. Nichols's office and instructed come to the emergency department because of acutely worsening kidney injury and elevated potassium levels. Patient feels completely at her baseline has no complaints at all Related Data Home Medications ?Medication ?Instructions ?Recorded ?Confirmed meloxicam 7.5 mg tablet 7.5 mg PO DAILY 05/24/22 12/07/23 omeprazole 20 mg capsule,delayed 20 mg PO DAILY 05/24/22 12/07/23 release valacyclovir 500 mg tablet 1,000 mg PO DAILY 05/24/22 12/08/23 acetaminophen 650 mg PO Q8H Pain 06/19/23 12/08/23 albuterol sulfate 90 mcg/actuation 2 puff inhalation Q4-6H PRN airway 06/19/23 12/08/23 aerosol inhaler escitalopram oxalate 20 mg tablet 20 mg PO DAILY 06/19/23 12/08/23 hyoscyamine sulfate 0.125 mg tablet 0.25 mg PO QID 06/19/23 12/07/23 ipratropium 20 mcg-albuterol 100 1 puff inhalation 6XD 06/19/23 12/07/23 mcg/actuation mist for inhalation (Combivent Respimat) lidocaine 5 % topical patch 1 patch topical DAILY PRN Pain, 06/19/23 12/07/23 Moderate lisinopril 40 mg tablet 40 mg PO DAILY 06/19/23 12/07/23 nystatin 100,000 unit/gram topical 1 applic topical DAILY 06/19/23 12/07/23 cream nystatin 100,000 unit/gram topical 1 applic topical BID 06/19/23 12/07/23 powder simvastatin 5 mg tablet 5 mg PO DAILY 06/19/23 12/07/23 polyethylene glycol 3350 17 17 g PO DAILY PRN Constipation 12/07/23 12/07/23 gram/dose oral powder (Miralax) insulin aspart U-100 100 unit/mL 4 unit SUBCUT AC 12/08/23 12/08/23 (3 mL) subcutaneous pen (Novolog FlexPen U-100 Insulin aspart) insulin glargine 100 unit/mL (3 12 unit SUBCUT DAILY 12/08/23 12/08/23 mL) subcutaneous pen (Lantus Solostar U-100 Insulin) Allergies Allergy/AdvReac Type Severity Reaction Status Date / Time gabapentin AdvReac Confusion Verified 05/15/24 20:20 Sulfa (Sulfonamide AdvReac Nausea Verified 05/15/24 20:20 Antibiotics) Review of Systems Review of Systems Narrative: Pertinent positive and negative findings as per HPI Patient History Medical History Carotid artery disease Non Hodgkin's lymphoma Asthma Diabetes Surgical History History of back surgery H/O tubal ligation History of carpal tunnel surgery History of knee replacement Family History Mother Stroke Father Colon cancer Social History marital status: details: ALSO LIVES WITH GRANDDAUGHTER AND SON-IN-LA[place] household members: spouse and family lives independently: Yes occupational status: previously employed Smoking Status: Former smoker alcohol intake: current substance use type: does not use Smoking Status: Former smoker alcohol intake frequency: holidays/special occasions only Exam Initial Vital Signs Initial Vital Signs: Vital Signs Temperature 97.7 F 11/09/24 15:02 Pulse Rate 51 L 11/09/24 15:02 Respiratory Rate 18 11/09/24 15:02 Blood Pressure 140/63 11/09/24 15:02 Pulse Oximetry 99 11/09/24 15:02 Oxygen Delivery Method Room Air 11/09/24 15:02 General: Healthy appearing, in no acute distress. Able to give a complete and coherent history. Well-nourished well-developed HEENT: Moist mucous membranes, normal sclera with reactive pupils, Respiratory: Lungs are clear to auscultation, no wheezing no rales no rhonchi. Full and symmetrical air movement Cardiac: Regular rate and rhythm no murmurs no bruits Abdomen: Soft, nontender, no rebound or guarding, no flank pain Skin: Warm and dry, no rashes Neurologic: Grossly neurologically intact with no obvious asymmetries or abnormalities Extremities: No trauma, well perfused Psych: Cooperative, appropriate insight and affect Course Orders Ordered: ED Orders 11/09/24 15:00 Complete Blood Count AUTO DIFF Stat Comprehensive Metabolic Panel Stat Magnesium Stat 11/09/24 15:07 Urinalysis and Microscopic Stat Sodium Chloride (Normal Saline 0.9%) 1,000 mls @ 1,000 mls/hr IV BOLUS ONE Stop: 11/09/24 16:29 Last Admin: 11/09/24 15:53 Dose: 1,000 mls/hr Documented By: SEB Discontinued Medications Furosemide (Furosemide 40 Mg/4 Ml Vial) 40 mg IV NOW ONE Stop: 11/09/24 15:31 Last Admin: 11/09/24 15:53 Dose: 40 mg Documented By: SEB Sodium Zirconium Cyclosilicate (Sodium Zirconium Cyclosilicate 10 Gm Powd.Pack) 10 gm PO NOW ONE Stop: 11/09/24 15:31 Last Admin: 11/09/24 15:53 Dose: 10 gm Documented By: SEB Vital Signs Vital signs: Vital Signs - 8 hr 11/09/24 15:02 Temperature 97.7 F Pulse Rate 51 L Respiratory Rate 18 Blood Pressure 140/63 Pulse Oximetry 99 Oxygen Delivery Method Room Air MDM - Recheck/Abnormal Lab/Rx Lab Data 11/09/24 15:00 11/09/24 15:00 Labs: Lab Results 11/09/24 Range/Units 15:00 WBC 10.5 (4.5-11.0) X10^3/uL RBC 3.48 L (4.0-5.2) X10^6/uL Hgb 11.6 L (12.0-16.0) g/dL Hct 36.4 (36-46) % MCV 104.5 H (80-100) fL MCH 33.3 (26-34) PG MCHC 31.9 (30-36) % RDW 17.3 H (11.6-14.8) % Plt Count 198 (150-400) X10^3/uL Neut % (Auto) 45.5 L (50-75) % Lymph % (Auto) 43.0 H (25-40) % [place] % (Auto) 7.8 (3-14) % Eos % (Auto) 3.5 (2-4) % Baso % (Auto) 0.2 (0-2) % Neut # (Auto) 4800 (0925-3815) /uL Lymph # (Auto) 4500 (3417-1913) /uL [place] # (Auto) 800 (0-900) /uL Eos # (Auto) 400 (0-450) /uL Baso # (Auto) 0 (0-100) /uL Sodium 138 (137-145) mmol/L Potassium 5.7 H (3.4-5.1) mmol/L Chloride 113 H (98-107) mmol/L Carbon Dioxide 15 L (22-32) mmol/L BUN 32 H (7-17) mg/dL Creatinine 1.41 H (0.52-1.04) mg/dL Estimated GFR 38 L (>60) mL/min BUN/Creatinine Ratio 22.7 H (6-22) Glucose 126 H (70-99) mg/dL Calcium 8.4 (8.4-10.2) mg/dL Magnesium 2.1 (1.6-2.3) mg/dL Total Bilirubin 0.4 (0.2-1.3) mg/dL AST 52 H (14-36) IU/L ALT 51 H (<35) IU/L Alkaline Phosphatase 67 (38-126) U/L Total Protein 6.7 (6.3-8.2) g/dL Albumin 4.2 (3.5-5.0) g/dL Globulin 2.5 (1.7-4.1) g/dL Albumin/Globulin Ratio 1.7 (1.0-2.8) MDM Narrative Medical decision making narrative: CC: Abnormal blood work, elevated creatinine and potassium sent in by physician Complicating co-morbidities: Hypertension, hyperlipidemia, diabetes Data collected from: patient Medical records reviewed: Hospital admission from November of 2023 for an acute UTI is reviewed Differential considered: Dehydration, worsening chronic kidney failure, Exam documented above, pertinent findings include: Patient is alert appropriate, heart and lungs are benign, no urinary symptoms no flank pain Lab Test results independently reviewed as above. Pertinent findings: CBC is relatively unremarkable, her chronic anemia is almost improved suggesting mild dehydration Chemistries show potassium of 5.7, creatinine is at 1.4 which actually does not appear that is far from her baseline in comparison to 2023. Minimal elevation to AST and ALT 52 and 51. Independently reviewed EKG: EKG shows sinus rhythm at a rate of 53 no ischemic changes, no peaked T-waves nor widening QRS is Treatments: 1 L of fluid, 40 mg of Lasix, 10 g of Lokelma Discussion: 79-year-old woman with routine blood work done showing a slight bump in creatinine suggesting mild dehydration with a potassium minimally elevated at 5.7. She was treated with fluids, Lasix and oral local lokelma. Her creatinine level is not that significantly changed from her baseline, given her otherwise sensation that she is at her baseline state of health, I am going to discharge her. I am going to suggest 3 additional doses of locally much over the next couple of days and follow up with her primary physician for follow up blood work. We will stressed the importance of hydration, she continues to have issues there may need to be discussion regarding her lisinopril dose Discharge Plan Departure Patient Disposition: Home Clinical Impression: Dehydration, Acute kidney injury, Acute hyperkalemia Activity Restrictions/Additional Instructions: Thank you for coming in today You were slightly dehydrated and were given a L of fluid. Because of your dehydration your kidneys were not working as effectively in your potassium level was starting to creep up. You were given Lasix, which pulls out potassium into your urine You were also given lokelema, which pulls out potassium into your stools A you did not have any other signs of complications and do not need to stay in the hospital You do need to follow up with your provider later this week to have blood work rechecked Prescriptions: No Action omeprazole 20 mg capsule,delayed release(DR/EC) 20 mg PO DAILY meloxicam 7.5 mg tablet 7.5 mg PO DAILY valacyclovir 500 mg tablet 1,000 mg PO DAILY escitalopram oxalate 20 mg tablet 20 mg PO DAILY lisinopril 40 mg tablet 40 mg PO DAILY lidocaine 5 % adhesive patch,medicated 1 patch topical DAILY PRN (Reason: Pain, Moderate) Rx Instructions: leave on most painful area for up to 12 hrs Combivent Respimat 20-100 mcg/actuation mist 1 puff inhalation 6XD Rx Instructions: space evenly during waking hours albuterol sulfate 90 mcg/actuation HFA aerosol inhaler 2 puff inhalation Q4-6H PRN (Reason: airway) acetaminophen 650 mg PO Q8H hyoscyamine sulfate 0.125 mg tablet 0.25 mg PO QID simvastatin 5 mg tablet 5 mg PO DAILY nystatin 100,000 unit/gram cream 1 applic topical DAILY nystatin 100,000 unit/gram powder 1 applic topical BID polyethylene glycol 3350 [Miralax] 17 gram/dose powder 17 g PO DAILY PRN (Reason: Constipation) insulin aspart U-100 [Novolog FlexPen U-100 Insulin] 100 unit/mL (3 mL) insulin pen 4 unit SUBCUT AC Patient Comments: [NO ORIGINAL SIG] Rx Instructions: 3X DAILY BEFORE MEALS insulin glargine [Lantus Solostar U-100 Insulin] 100 unit/mL (3 mL) insulin pen 12 unit SUBCUT DAILY Patient Comments: [NO ORIGINAL SIG] Referrals: Khalida Ramesh PA-C [Primary Care Provider, Medical] Stand Alone Forms: Patient Portal/API
[2024-11-09 16:59] LABS: Appearance Urine UA CLEAR; Bilirubin Urine UA NEGATIVE (NEGATIVE); Color Urine UA YELLOW; Glucose Urine UA NEGATIVE (Negative); Ketones Urine UA NEGATIVE (NEGATIVE); Leukocyte Esterase Urine UA NEGATIVE (NEGATIVE); Nitrite Urine UA NEGATIVE (Negative); Occult Blood Urine UA NEGATIVE (Negative); Protein Urine UA NEGATIVE (Negative); Specific Gravity Urine UA <=1.005 (1.000-1.035); Urobilinogen Urine UA 0.2 E.U./dL (0.2)
[2024-11-09 17:05] LABS: pH Urine UA 5.5 (4.5-8.0)
[2024-11-09 17:34] LABS: Bacteria Urine None Seen; Culture Indicated Urine Cult Not Indicated; RBC Urine None Seen (0-5/HPF); Squamous Epithelial Cell Urine 1-5 /HPF (0-5/HPF); Urine Volume 10mL (spun); WBC Urine None Seen (0-5/HPF)
[2024-11-09 17:52] LABS: POC Glucose 230 mg/dL (70-99)
[2024-11-09] MEDS: INSULIN LISPRO 100 UNIT/ML 3ML VIAL SUBCUT (18:03)
== END 2024-11-09 19:02 | disposition home or self-care (01) ==
PROVIDERS: Emergency Provider Emergency Medicine; PCP Student in an Organized Health Care Education/Training Program
DX: N17.9 Acute kidney failure, unspecified (principal); E87.5 Hyperkalemia; E86.0 Dehydration; E11.9 Type 2 diabetes mellitus without complications; I10 Essential (primary) hypertension; Z87.891 Personal history of nicotine dependence; Z79.4 Long term (current) use of insulin
CPT/HCPCS: 36415; 80053; 81001; 82962; 83735; 85025; 93005; 93010; 96361; 96372; 96374; 99284; J1815; J1938